=== PATIENT | male | born 1960 | race Caucasian/White ===

== ENCOUNTER 2018-07-24 06:51 | Inpatient (IN) | payer MEDICARE, BC ==
[~2018-07-24] VITALS: Ht 160 cm; Wt 57.0 kg
[2018-07-24] MEDS ORDERED: AMLO5TAB4 PO (08:42)
[2018-07-24] MEDS ORDERED: FURO80TA3 PO (08:44)
[2018-07-24] MEDS ORDERED: NIFE30TA23 PO (08:45)
[2018-07-24] MEDS ORDERED: LABE100T7 PO (08:45)
[2018-07-24] MEDS ORDERED: CALC667C PO (08:45)
--- NOTE | 2018-07-24 10:48 | ERD ---
ER Documentation Chief Complaint Chief Complaint Sent from Dialysis clinic for evaluation abnormal labs HPI This is a 58-year-old man on dialysis who was sent from his dialysis center due to having a low hemoglobin. The patient is not sure of the number but says he feels generalized weakness gradually getting worse over the past couple of weeks. No nausea vomiting denies any melena, he said he has had anemia in the past of uncertain etiology, likely renal, and has had to get blood transfusions. He says he feels the same way like he did before. He said he went to dialysis yesterday ROS All systems reviewed and are negative except as per history of present illness. Medications Home Meds Reported Medications Calcium Acetate* (Calcium Acetate*) 667 Mg Capsule, 2001 MG PO WITH MEALS, #90 CAP 07/24/18 Nifedipine* (Nifedipine ER*) 30 Mg Tablet.sa, 30 MG PO DAILY, TAB.SA 07/24/18 Labetalol Hcl* (Labetalol Hcl*) 100 Mg Tablet, 100 MG PO BID, TAB 07/24/18 Furosemide* (Furosemide*) 80 Mg Tablet, 80 MG PO BID, #60 TAB 07/24/18 Amlodipine Besylate* (Norvasc*) 5 Mg Tablet, 5 MG PO DAILY, TAB 07/24/18 Allergies Allergies: Coded Allergies: Penicillins (Verified Allergy, Unknown, 07/24/18) amoxicillin (Verified Allergy, Unknown, 07/24/18) PMhx/Soc History of Surgery: No Anesthesia Reaction: No Hx Neurological Disorder: No Hx Respiratory Disorders: No Hx Cardiac Disorders: Yes (HTN) Hx Psychiatric Problems: No Hx Miscellaneous Medical Probl: Yes (DM,ESRD) Hx Alcohol Use: No Hx Substance Use: No Hx Tobacco Use: No Smoking Status: Never smoker FmHx Family History: No coronary disease Physical Exam Vitals Vital Signs Date Temp Pulse Resp B/P (MAP) Pulse Ox O2 O2 Flow FiO2 Time Delivery Rate 07/24/18 Nasal 2 07:37 Cannula 07/24/18 97.6 90 20 200/92 100 06:56 (128) Physical Exam Const: Well-developed, well-nourished Head: Atraumatic, normocephalic Eyes: Normal Conjunctiva, PERRLA, EOMI, normal sclera, no nystagmus ENT: Normal External Ears, Nose and Mouth, moist mucus membranes. Neck: Full range of motion. No meningismus, no lymphadenopathy. Resp: Clear to auscultation bilaterally, no wheezing, rhonchi, rales Cardio: Regular rate and rhythm, no murmurs, S1 S2 present Abd: Soft, non tender x 4, non distended. Normal bowel sounds, no guarding or rebound, no pulsitile abdominal masses or bruits Skin: No petechiae or rashes, no ecchymosis , no maculopapular rash Back: No midline or flank tenderness Ext: No cyanosis, or edema, FROM x 4, normal inspection, neurovascularly intact x 4 Neur: Awake and alert, STR 5/5 x 4, sensation intact x 4, no focal findings, cerebellum intact Psych: Normal Mood and Affect Result Diagram: 07/24/18 0718 07/24/18 0718 Results 24 hrs Laboratory Tests Test 07/24/18 07:18 White Blood Count 13.5 10^3/ul Red Blood Count 2.68 10^6/ul Hemoglobin 7.4 g/dl Hematocrit 24.4 % Mean Corpuscular Volume 91.0 fl Mean Corpuscular Hemoglobin 27.6 pg Mean Corpuscular Hemoglobin Concent 30.3 g/dl Red Cell Distribution Width 23.9 % Platelet Count 621 10^3/UL Mean Platelet Volume 9.9 fl Immature Granulocytes % 0.700 % Neutrophils % 79.0 % Lymphocytes % 9.1 % Monocytes % 7.1 % Eosinophils % 3.6 % Basophils % 0.5 % Nucleated Red Blood Cells % 0.0 /100WBC Immature Granulocytes # 0.090 10^3/ul Neutrophils # 10.6 10^3/ul Lymphocytes # 1.2 10^3/ul Monocytes # 1.0 10^3/ul Eosinophils # 0.5 10^3/ul Basophils # 0.1 10^3/ul Nucleated Red Blood Cells # 0.0 10^3/ul Prothrombin Time 13.6 Sec Prothrombin Time Ratio 1.1 INR International Normalized Ratio 1.03 Activated Partial Thromboplast Time 38.9 Sec Sodium Level 137 mmol/L Potassium Level 5.0 mmol/L Chloride Level 100 mmol/L Carbon Dioxide Level 22 mmol/L Anion Gap 15 Blood Urea Nitrogen 54 mg/dl Creatinine 6.32 mg/dl Est Glomerular Filtrat Rate mL/min 9 mL/min Glucose Level 126 mg/dl Calcium Level 8.7 mg/dl Total Bilirubin 2.1 mg/dl Direct Bilirubin 1.50 mg/dl Indirect Bilirubin 0.6 mg/dl Aspartate Amino Transf (AST/SGOT) 62 IU/L Alanine Aminotransferase (ALT/SGPT) 24 IU/L Alkaline Phosphatase 1457 IU/L Total Protein 8.9 g/dl Albumin 3.6 g/dl Globulin 5.30 g/dl Albumin/Globulin Ratio 0.67 Procedures/MDM PROCEDURE: XR Chest. CLINICAL INDICATION: Hemorrhage TECHNIQUE: AP chest was obtained COMPARISON: None. FINDINGS: Right central venous catheter in place distal portion projected over the distal superior vena cava. Hypoventilatory chest. Mild increased density at both bases more so left base may all be due to atelectasis however basilar infiltrates especially on the left should be excluded. Remainder lungs are clear. No pulmonary vascular congestion or pneumothoraces. Blunted costophrenic angles slightly more conspicuous on the left and rule out tiny pleural effusions. IMPRESSION: 1. No evidence congestive heart failure. 2. Bibasilar increased density more so at the left base may all be due to atelectasis however pneumonia especially in the left lower lobe should be excluded. 3. Blunted costophrenic angles more prominent on the left and rule out tiny pleural effusions. RPTAT:AAJJ Physician Raul Date Time Electronically viewed and signed by Physician Raul on 07/24/2018 08:02 BM/ CC: KIKE SENA DO [id number] Patient is anemic with a hemoglobin of 7.4. I type and cross 2 units of packed red blood cells admit to the hospital for anemia workup/blood transfusion. Potassium is stable. Will admit to panel Departure Diagnosis: Primary Impression: Symptomatic anemia Condition: Stable KIKE SENA DO Jul 24, 2018 10:48
[2018-07-24] MEDS ORDERED: ONDANSETRON 4 MG INJ IV PRN ×2 (11:30→14:30)
[2018-07-24] MEDS ORDERED: ACETAMINOPHEN 325 MG TAB PO PRN ×2 (11:30→14:30)
--- NOTE | 2018-07-24 13:59 | HP ---
Date/Time of Note Date/Time of Note DATE: 07/24/18 TIME: 13:59 Assessment/Plan VTE Prophylaxis Pharmacological prophylaxis: NA/contraindicated Pharm contraindication: anticoag not tolerated Lines/Catheters IV Catheter Type (from [facility]): [facility] Assessment/Plan Hospital Course 58-year-old male with comorbidities including end-stage renal disease on hemodialysis Saturday/Saturday/Saturday, anemia, and hypertension, who came to the emergency room for further evaluation who was referred by his negative developer for underlying anemia. The patient was noticed to have underlying anemia and the patient will be admitted to inpatient setting for further treatment and evaluation. 1. Normocytic anemia. -Etiology unclear. Obtain hematology consult. -Obtain iron panel to evaluate for any underlying deficiency. -Obtain studies to evaluate for any underlying hemolysis. -Obtain gastroenterology evaluation. Start PPI. -Stool for OB. 2. End-stage renal disease on hemodialysis. -The patient's negative developer was informed about the patient's admission. -Next scheduled hemodialysis on 07/25/2018. -The patient's potassium level within normal limits. 3. Essential hypertension. -The patient's antihypertensives will be resumed. 4. Transaminitis with hyperbilirubinemia. -Etiology unclear. -Obtain gastroenterology consult. -Obtain hepatitis panel. Plan: The patient will be admitted to inpatient telemetry floor. The patient will be started on a renal diet. The patient will be started on DVT prophylaxis (SCDs) and gastrointestinal prophylaxis. The patient will remain a full code. Activities will be as tolerated. The rest of the patient's management will be based on the clinical course, inputs from consultants, and the results of diagnostic studies. Based on the patient's clinical presentation, he most probably requires at least 2 midnights' stay for further management and evaluation of his clinical presentation. The patient was seen in collaboration with Dr. Joseph. Result Diagram: 07/24/18 0718 07/24/18 0718 Results 24hrs Laboratory Tests Test 07/24/18 07:18 White Blood Count 13.5 H Red Blood Count 2.68 L Hemoglobin 7.4 L Hematocrit 24.4 L Mean Corpuscular Volume 91.0 Mean Corpuscular Hemoglobin 27.6 L Mean Corpuscular Hemoglobin Concent 30.3 L Red Cell Distribution Width 23.9 H Platelet Count 621 H Mean Platelet Volume 9.9 Immature Granulocytes % 0.700 H Neutrophils % 79.0 H Lymphocytes % 9.1 L Monocytes % 7.1 Eosinophils % 3.6 Basophils % 0.5 Nucleated Red Blood Cells % 0.0 Immature Granulocytes # 0.090 H Neutrophils # 10.6 H Lymphocytes # 1.2 Monocytes # 1.0 H Eosinophils # 0.5 Basophils # 0.1 Nucleated Red Blood Cells # 0.0 Prothrombin Time 13.6 Prothrombin Time Ratio 1.1 INR International Normalized Ratio 1.03 Activated Partial Thromboplast Time 38.9 H Sodium Level 137 Potassium Level 5.0 Chloride Level 100 Carbon Dioxide Level 22 Anion Gap 15 H Blood Urea Nitrogen 54 H Creatinine 6.32 H Est Glomerular Filtrat Rate mL/min 9 L Glucose Level 126 Calcium Level 8.7 Iron Level 48 Total Iron Binding Capacity 204 L Percent Iron Saturation 24 Total Bilirubin 2.1 H Direct Bilirubin 1.50 H Indirect Bilirubin 0.6 Aspartate Amino Transf (AST/SGOT) 62 H Alanine Aminotransferase (ALT/SGPT) 24 Alkaline Phosphatase 1457 H Total Protein 8.9 H Albumin 3.6 Globulin 5.30 H Albumin/Globulin Ratio 0.67 HPI/ROS Admit Date/Time Admit Date/Time Hx of Present Illness Reason for admission: Referred by hemodialysis clinic for further evaluation of anemia. Consultants 1. Sebastian Kerns MD, Gastroenterology. 2. Rosi Daigle MD, Nephrology. 3. Marilynn Nichols MD, Hematology. This is a 58-year-old male with past medical history of end-stage renal disease on hemodialysis and hypertension. The patient went to his hemodialysis clinic as scheduled on 07/23/2018 when he was found to have a hemoglobin level of 6.5. The patient was instructed to go to the emergency room after completing his hemodialysis. The patient did not to go to the emergency room until 07/24/2018. The patient denied any obvious bleeding. The patient denied any melena, hematochezia, or hematemesis. The patient denied any hematuria. The patient verbalized generalized fatigue. The patient denied any dyspnea on exertion. The patient verbalized prior history of blood transfusion in February 2018. The patient denied any fevers or chills. The patient denied any chest pain. In the emergency room, the patient was noticed to have a hemoglobin and hematocrit of 7.4 and 24.4 respectively. The patient's coagulation panel was normal within normal limits. The patient did not have any evidence of thrombocytopenia. The patient had underlying hyperbilirubinemia with transaminitis. The patient was started on blood transfusion in the emergency room. ROS Constitutional: fatigue Eyes: no complaints ENT: no complaints Respiratory: no complaints Cardiovascular: edema Gastrointestinal: no complaints Genitourinary: no complaints Musculoskeletal: no complaints Skin: no complaints Endocrine: no complaints Lymphatic: lymphadema Psychological: no complaints Immunologic: no complaints PMH/Family/Social Past Medical History 1. Hypertension. 2. ESRD on hemodialysis Saturday/Saturday/Saturday. 3. Anemia Medications Current Medications Ondansetron HCl (Zofran Inj) 4 mg ER BRIDGE PRN IV NAUSEA/VOMITING; Start 07/24/18 at 11:30; Stop 07/25/18 at 11:29 Acetaminophen (Tylenol Tab) 650 mg ER BRIDGE PRN PO .MILD PAIN 1-3 OR TEMP; Start 07/24/18 at 11:30; Stop 07/25/18 at 11:29 Coded Allergies: Penicillins (Verified Allergy, Unknown, 07/24/18) amoxicillin (Verified Allergy, Unknown, 07/24/18) Past Surgical History Past Surgical Hx: other (Dialysis access placement) Social History Lives at home with family. Alcohol Use: none Smoking Status: Never smoker Drug Use: none Exam/Review of Systems Vital Signs Vitals Vital Signs Date Temp Pulse Resp B/P (MAP) Pulse Ox O2 O2 Flow FiO2 Time Delivery Rate 07/24/18 Nasal 2 07:37 Cannula 07/24/18 97.6 90 20 200/92 100 06:56 (128) Exam Exam General: Adequately build 58 year-old male lying in bed in no apparent distress. HEENT: Normocephalic, atraumatic. Eyes: Icteric sclerae, conjunctivae clear. ENT: Nasal septum midline, oral mucosa moist. Neck supple, JVD noticed. Respiratory: Bilaterally clear breath sounds. No use of accessory muscles of respiration. No adventitious breath sounds. Cardiovascular: S1, S2 heard. Regular rate and rhythm. Abdomen: Soft, nontender, and nondistended. Bowel sounds positive in all 4 quadrants. Genitourinary: Deferred. Extremities: No cyanosis, no clubbing. B/L LE edema. Peripheral pulses palpable. Neurologic: Cranial nerves II through XII grossly intact. The patient is awake, alert, and oriented. Skin: Normal skin turgor. No skin rashes. Additional Comments CXR IMPRESSION: 1. No evidence congestive heart failure. 2. Bibasilar increased density more so at the left base may all be due to atelectasis however pneumonia especially in the left lower lobe should be excluded. 3. Blunted costophrenic angles more prominent on the left and rule out tiny pleural effusions. BERTHA LAUREANO NP Jul 24, 2018 13:59
[2018-07-24] MEDS ORDERED: NACL 0.9% 3 ML SYG IV SCH (14:30)
[2018-07-24] MEDS ORDERED: HYDROCODONE/APAP (5/325) TAB PO PRN (14:30)
--- NOTE | 2018-07-24 15:52 | CONS ---
Assessment/Plan Assessment/Plan Hospital Course (Demo Recall) Summary Assessment and Plan: Assessment: Elevated LFTs with direct hyperbilirubinemia (Elevated alkaline phosphatase 1457) Elevated lactate dehydrogenase 60lb weight loss over 6 months Normocytic anemia Thrombocytosis ESRD on HD HTN Chronic n/v Plan: MRCP- to assess biliary duct CT abd/pelvis- assess for malignancy CA 19-9 CEA Alk phos fractionation EGD/colon in near future Patient seen in collaboration with Dr. Cheng CC: ALLAN CHENG ; Consultation Date/Type/Reason Admit Date/Time Date of Consultation: Jul 24, 2018 Type of Consult GI Reason for Consultation Normocytic anemia Abnormal liver enzymes Direct hyperbilirubinemia Date/Time of Note DATE: 07/24/18 TIME: 15:45 Hx of Present Illness This is a 58-year-old male with PMH of ESRD on HD M,W,F, anemia, and hypertension. Presented to the ED per his dementia program director for his underlying anemia. Labs were obtained patient's hemoglobin was noted to be 7.4 with hematocrit of 24.4, MCV of 91.0, platelet count 621, WBC 13.5, INR of 0.03 additionally LFTs are noted to be abnormal including direct hyperbilirubinemia, elevated AST 62, normal ALT of 24, severely elevated alkaline phosphatase 1457, and an elevated lactate dehydrogenase. Ultrasound was obtained showing deana lithiasis mild hepatomegaly trace amount of ascites and a small right pleural effusion as well as medical renal disease.. A chest x-ray shows no evidence of congestive heart failure bibasilar increased density more so left base due to atelectasis however pneumonia cannot be excluded, blunted costophrenic angles more prominent on the left and rule out tiny pleural effusion. At time evaluation patient is resting in bed no apparent distress with questioning patient notes he has had progressive nausea and vomiting since February he also notes a 60 pound weight loss in the past 6 months. He denies overt signs of GI bleed including melena, hematochezia, or hematemesis. He states he is never had an EGD or colonoscopy. He also denies any recent orthopedic surgery to cause elevation in alkaline phosphatase he also denies osteomyelitis. Discussed plan to obtain additional blood workup and plan for MRCP as well as CT abdomen pelvis to assess for malignancy and assess biliary tree given direct hyperbilirubinemia and severely elevated alkaline phosphatase. Patient verbalized understanding a nd is agreeable to plan. Review of Systems: A 12 system, review was conducted and is negative except as noted in the HPI or here. Past Medical History Home Meds Reported Medications Calcium Acetate* (Calcium Acetate*) 667 Mg Capsule, 2001 MG PO WITH MEALS, #90 CAP 07/24/18 Nifedipine* (Nifedipine ER*) 30 Mg Tablet.sa, 30 MG PO DAILY, TAB.SA 07/24/18 Labetalol Hcl* (Labetalol Hcl*) 100 Mg Tablet, 100 MG PO BID, TAB 07/24/18 Furosemide* (Furosemide*) 80 Mg Tablet, 80 MG PO BID, #60 TAB 07/24/18 Amlodipine Besylate* (Norvasc*) 5 Mg Tablet, 5 MG PO DAILY, TAB 07/24/18 Medications Current Medications Ondansetron HCl (Zofran Inj) 4 mg ER BRIDGE PRN IV NAUSEA/VOMITING; Start 07/24/18 at 11:30; Stop 07/25/18 at 11:29 Acetaminophen (Tylenol Tab) 650 mg ER BRIDGE PRN PO .MILD PAIN 1-3 OR TEMP; Start 07/24/18 at 11:30; Stop 07/25/18 at 11:29 IV Flush (NS 3 ml) 3 ml PER PROTOCOL IV ; Start 07/24/18 at 14:30 Ondansetron HCl (Zofran Inj) 4 mg Q6H PRN IV NAUSEA/VOMITING; Start 07/24/18 at 14:30 Acetaminophen (Tylenol Tab) 650 mg Q6H PRN PO .PAIN 1-3 OR TEMP; Start 07/24/18 at 14:30 Acetaminophen/ Hydrocodone Bitart ([place] (5/325)) 1 tab Q6H PRN PO .MOD PAIN 4- 6; Start 07/24/18 at 14:30 Amlodipine Besylate (Norvasc) 5 mg DAILY PO ; Start 07/25/18 at 09:00; Status UNV Calcium Acetate (Phoslo) 2,001 mg WITH MEALS PO ; Start 07/24/18 at 18:00 Labetalol HCl (Normodyne) 100 mg BID PO ; Start 07/24/18 at 21:00 Nifedipine (Procardia Xl) 30 mg DAILY PO ; Start 07/25/18 at 09:00; Status UNV Pantoprazole (Protonix Tab) 40 mg DAILY@06 PO ; Start 07/25/18 at 06:00; Status UNV Allergies: Coded Allergies: Penicillins (Verified Allergy, Unknown, 07/24/18) amoxicillin (Verified Allergy, Unknown, 07/24/18) Past Surgical History Past Surgical Hx: other (Dialysis access placement) Social History Alcohol Use: none Smoking Status: Never smoker Drug Use: none Exam/Review of Systems Exam Vitals Vital Signs Date Temp Pulse Resp B/P (MAP) Pulse Ox O2 O2 Flow FiO2 Time Delivery Rate 07/24/18 98.2 82 18 154/75 98 Nasal 2.0 15:35 (101) Cannula Exam PHYSICAL EXAMINATION: GENERAL: Ill appearing, alert & oriented x 3, in no acute distress SKIN: No lesions EYES: Pupils equal reactive to light, no discharge. EARS/NOSE AND THROAT: Ears normal, nose normal, oropharynx normal NECK: Supple, no masses CHEST: Inspection within normal limits. CARDIOVASCULAR: Heart: Regular rate and rhythm RESPIRATORY: Lungs clear to auscultation GASTROINTESTINAL AND LIVER: Abdomen: Soft, non tenderness, non-distended, no hernias, no masses, no organomegaly, no ascites, no guarding, no rebound tenderness, normoactive bowel sounds. Rectal: Deferred. EXTREMITIES: No cyanosis, clubbing or edema. Results Result Diagram: 07/24/18 0718 07/24/18 0718 Results 24hrs Laboratory Tests Test 07/24/18 07:18 White Blood Count 13.5 H Red Blood Count 2.68 L Hemoglobin 7.4 L Hematocrit 24.4 L Mean Corpuscular Volume 91.0 Mean Corpuscular Hemoglobin 27.6 L Mean Corpuscular Hemoglobin Concent 30.3 L Red Cell Distribution Width 23.9 H Platelet Count 621 H Mean Platelet Volume 9.9 Immature Granulocytes % 0.700 H Neutrophils % 79.0 H Lymphocytes % 9.1 L Monocytes % 7.1 Eosinophils % 3.6 Basophils % 0.5 Nucleated Red Blood Cells % 0.0 Immature Granulocytes # 0.090 H Neutrophils # 10.6 H Lymphocytes # 1.2 Monocytes # 1.0 H Eosinophils # 0.5 Basophils # 0.1 Nucleated Red Blood Cells # 0.0 Absolute Reticulocyte Count 0.140 H Percent Reticulocyte Count 5.3 H Prothrombin Time 13.6 Prothrombin Time Ratio 1.1 INR International Normalized Ratio 1.03 Activated Partial Thromboplast Time 38.9 H Sodium Level 137 Potassium Level 5.0 Chloride Level 100 Carbon Dioxide Level 22 Anion Gap 15 H Blood Urea Nitrogen 54 H Creatinine 6.32 H Est Glomerular Filtrat Rate mL/min 9 L Glucose Level 126 Calcium Level 8.7 Iron Level 48 Total Iron Binding Capacity 204 L Percent Iron Saturation 24 Ferritin 1760.0 H Total Bilirubin 2.1 H Direct Bilirubin 1.50 H Indirect Bilirubin 0.6 Aspartate Amino Transf (AST/SGOT) 62 H Alanine Aminotransferase (ALT/SGPT) 24 Alkaline Phosphatase 1457 H Lactate Dehydrogenase 851 H Total Protein 8.9 H Albumin 3.6 Globulin 5.30 H Albumin/Globulin Ratio 0.67 Hepatitis B Surface Antigen NEGATIVE Hepatitis B Core Total Antibody NEGATIVE Hepatitis C Antibody NEGATIVE Medications Medication Current Medications Ondansetron HCl (Zofran Inj) 4 mg ER BRIDGE PRN IV NAUSEA/VOMITING; Start 07/24/18 at 11:30; Stop 07/25/18 at 11:29 Acetaminophen (Tylenol Tab) 650 mg ER BRIDGE PRN PO .MILD PAIN 1-3 OR TEMP; Start 07/24/18 at 11:30; Stop 07/25/18 at 11:29 IV Flush (NS 3 ml) 3 ml PER PROTOCOL IV ; Start 07/24/18 at 14:30 Ondansetron HCl (Zofran Inj) 4 mg Q6H PRN IV NAUSEA/VOMITING; Start 07/24/18 at 14:30 Acetaminophen (Tylenol Tab) 650 mg Q6H PRN PO .PAIN 1-3 OR TEMP; Start 07/24/18 at 14:30 Acetaminophen/ Hydrocodone Bitart ([place] (5/325)) 1 tab Q6H PRN PO .MOD PAIN 4- 6; Start 07/24/18 at 14:30 Amlodipine Besylate (Norvasc) 5 mg DAILY PO ; Start 07/25/18 at 09:00; Status UNV Calcium Acetate (Phoslo) 2,001 mg WITH MEALS PO ; Start 07/24/18 at 18:00 Labetalol HCl (Normodyne) 100 mg BID PO ; Start 07/24/18 at 21:00 Nifedipine (Procardia Xl) 30 mg DAILY PO ; Start 07/25/18 at 09:00; Status UNV Pantoprazole (Protonix Tab) 40 mg DAILY@06 PO ; Start 07/25/18 at 06:00; Status UNANDREW LEONARD Jul 24, 2018 15:52
[2018-07-24] MEDS: hydrALAzine 20 MG INJ IV PRN (16:45)
[2018-07-24 16:50] VITALS: BP 184/99; PULSE 78; RESP 18
[2018-07-24 16:58] VITALS: Ht 160 cm; Wt 57.0 kg
[2018-07-24 17:08] VITALS: BP 161/85; PULSE 78; RESP 18
[2018-07-24] MEDS: morphine 2 MG INJ IV PRN (17:34)
[2018-07-24 17:39] VITALS: BP 158/87; PULSE 77; RESP 19
[2018-07-24] MEDS: CALCIUM ACETATE 667 MG CAP PO SCH (18:16)
--- NOTE | 2018-07-24 19:23 | CONS ---
Assessment/Plan Assessment/Plan Assessment/Plan (Daily) - ESRD on hemodialysis @ [facility] - Persistent Anemia - Hypertension - Hyperphosphatemia - PVD PLAN: Persistent Anemia despite max dose of erythropoietin & IRON as out patient Anemia work up in progress Will plan for HD in AM May need transfusion depending on the H/H levels in AM BP control High Protein diet Follow up with [facility] [employer] Consultation Date/Type/Reason Admit Date/Time Date of Consultation: Jul 24, 2018 Type of Consult - Nephrology Reason for Consultation - ESRD on dialysis Date/Time of Note DATE: 07/24/18 TIME: : Constitutional: no complaints Eyes: no complaints ENT: no complaints Respiratory: no complaints Gastrointestinal: no complaints Past Medical History Medical History: coronary artery disease, hypertension, renal disease Home Meds Reported Medications Calcium Acetate* (Calcium Acetate*) 667 Mg Capsule, 2001 MG PO WITH MEALS, #90 CAP 07/24/18 Nifedipine* (Nifedipine ER*) 30 Mg Tablet.sa, 30 MG PO DAILY, TAB.SA 07/24/18 Labetalol Hcl* (Labetalol Hcl*) 100 Mg Tablet, 100 MG PO BID, TAB 07/24/18 Furosemide* (Furosemide*) 80 Mg Tablet, 80 MG PO BID, #60 TAB 07/24/18 Amlodipine Besylate* (Norvasc*) 5 Mg Tablet, 5 MG PO DAILY, TAB 07/24/18 Medications Current Medications Ondansetron HCl (Zofran Inj) 4 mg ER BRIDGE PRN IV NAUSEA/VOMITING; Start 07/24/18 at 11:30; Stop 07/25/18 at 11:29 IV Flush (NS 3 ml) 3 ml PER PROTOCOL IV ; Start 07/24/18 at 14:30 Ondansetron HCl (Zofran Inj) 4 mg Q6H PRN IV NAUSEA/VOMITING; Start 07/24/18 at 14:30 Acetaminophen (Tylenol Tab) 650 mg Q6H PRN PO .PAIN 1-3 OR TEMP; Start 07/24/18 at 14:30 Acetaminophen/ Hydrocodone Bitart ([place] (5/325)) 1 tab Q6H PRN PO .MOD PAIN 4- 6; Start 07/24/18 at 14:30 Amlodipine Besylate (Norvasc) 5 mg DAILY PO ; Start 07/25/18 at 09:00 Calcium Acetate (Phoslo) 2,001 mg WITH MEALS PO Last administered on 07/24/18at 18:16; Admin Dose 2,001 MG; Start 07/24/18 at 17:55 Labetalol HCl (Normodyne) 100 mg BID PO ; Start 07/24/18 at 21:00 Nifedipine (Procardia Xl) 30 mg DAILY PO ; Start 07/25/18 at 09:00 Pantoprazole (Protonix Tab) 40 mg DAILY@06 PO ; Start 07/25/18 at 06:00 Hydralazine HCl (Apresoline) 10 mg Q6H PRN IV SBP>160 Last administered on 07/24/18at 16:45; Admin Dose 10 MG; Start 07/24/18 at 16:00 Morphine Sulfate (morphine) 2 mg Q4H PRN IV SEVERE PAIN LEVEL 7-10 Last administered on 07/24/18at 17:34; Admin Dose 2 MG; Start 07/24/18 at 17:30 Allergies: Coded Allergies: Penicillins (Verified Allergy, Unknown, 07/24/18) amoxicillin (Verified Allergy, Unknown, 07/24/18) Past Surgical History Past Surgical Hx: other (Dialysis access placement) Family History Significant Family History: no pertinent family hx Social History Alcohol Use: none Smoking Status: Never smoker Drug Use: none Exam/Review of Systems Exam Vitals Vital Signs Date Temp Pulse Resp B/P (MAP) Pulse Ox O2 O2 Flow FiO2 Time Delivery Rate 07/24/18 77 19 158/87 17:39 (110) 07/24/18 98.0 100 Room Air 16:50 07/24/18 2.0 15:35 Constitutional: alert, oriented Psych: no complaints Respiratory: crackles/rales Cardiovascular: regular rate and rhythm, systolic murmur Gastrointestinal: soft Results Result Diagram: 07/24/18 0718 07/24/18 0718 Results 24hrs Laboratory Tests Test 07/24/18 07:18 07/24/18 15:12 White Blood Count 13.5 H Red Blood Count 2.68 L Hemoglobin 7.4 L Hematocrit 24.4 L Mean Corpuscular Volume 91.0 Mean Corpuscular Hemoglobin 27.6 L Mean Corpuscular Hemoglobin Concent 30.3 L Red Cell Distribution Width 23.9 H Platelet Count 621 H Mean Platelet Volume 9.9 Immature Granulocytes % 0.700 H Neutrophils % 79.0 H Lymphocytes % 9.1 L Monocytes % 7.1 Eosinophils % 3.6 Basophils % 0.5 Nucleated Red Blood Cells % 0.0 Immature Granulocytes # 0.090 H Neutrophils # 10.6 H Lymphocytes # 1.2 Monocytes # 1.0 H Eosinophils # 0.5 Basophils # 0.1 Nucleated Red Blood Cells # 0.0 Absolute Reticulocyte Count 0.140 H Percent Reticulocyte Count 5.3 H Prothrombin Time 13.6 Prothrombin Time Ratio 1.1 INR International Normalized Ratio 1.03 Activated Partial Thromboplast Time 38.9 H Sodium Level 137 Potassium Level 5.0 Chloride Level 100 Carbon Dioxide Level 22 Anion Gap 15 H Blood Urea Nitrogen 54 H Creatinine 6.32 H Est Glomerular Filtrat Rate mL/min 9 L Glucose Level 126 Hemoglobin A1c Calcium Level 8.7 Iron Level 48 Total Iron Binding Capacity 204 L Percent Iron Saturation 24 Ferritin 1760.0 H Total Bilirubin 2.1 H Direct Bilirubin 1.50 H Indirect Bilirubin 0.6 Aspartate Amino Transf (AST/SGOT) 62 H Alanine Aminotransferase (ALT/SGPT) 24 Alkaline Phosphatase 1457 H Lactate Dehydrogenase 851 H B-Type Natriuretic Peptide 741754 H Total Protein 8.9 H Albumin 3.6 Globulin 5.30 H Albumin/Globulin Ratio 0.67 Alpha Fetoprotein 1.08 Vitamin B12 Level > 1000 H Folate 11.0 Thyroid Stimulating Hormone (TSH) 4.750 H Hepatitis B Surface Antigen NEGATIVE Hepatitis B Core Total Antibody NEGATIVE Hepatitis C Antibody NEGATIVE Carcinoembryonic Antigen 5.4 H Medications Medication Current Medications Ondansetron HCl (Zofran Inj) 4 mg ER BRIDGE PRN IV NAUSEA/VOMITING; Start 07/24/18 at 11:30; Stop 07/25/18 at 11:29 IV Flush (NS 3 ml) 3 ml PER PROTOCOL IV ; Start 07/24/18 at 14:30 Ondansetron HCl (Zofran Inj) 4 mg Q6H PRN IV NAUSEA/VOMITING; Start 07/24/18 at 14:30 Acetaminophen (Tylenol Tab) 650 mg Q6H PRN PO .PAIN 1-3 OR TEMP; Start 07/24/18 at 14:30 Acetaminophen/ Hydrocodone Bitart ([place] (5/325)) 1 tab Q6H PRN PO .MOD PAIN 4- 6; Start 07/24/18 at 14:30 Amlodipine Besylate (Norvasc) 5 mg DAILY PO ; Start 07/25/18 at 09:00 Calcium Acetate (Phoslo) 2,001 mg WITH MEALS PO Last administered on 07/24/18at 18:16; Admin Dose 2,001 MG; Start 07/24/18 at 17:55 Labetalol HCl (Normodyne) 100 mg BID PO ; Start 07/24/18 at 21:00 Nifedipine (Procardia Xl) 30 mg DAILY PO ; Start 07/25/18 at 09:00 Pantoprazole (Protonix Tab) 40 mg DAILY@06 PO ; Start 07/25/18 at 06:00 Hydralazine HCl (Apresoline) 10 mg Q6H PRN IV SBP>160 Last administered on 07/24/18at 16:45; Admin Dose 10 MG; Start 07/24/18 at 16:00 Morphine Sulfate (morphine) 2 mg Q4H PRN IV SEVERE PAIN LEVEL 7-10 Last administered on 07/24/18at 17:34; Admin Dose 2 MG; Start 07/24/18 at 17:30 ZAHEER SHARIF MD Jul 24, 2018 19:23
[2018-07-24 19:49] VITALS: BP 163/85; PULSE 73; RESP 18
[2018-07-24] MEDS ORDERED: IODIXANOL LOCM 100 ML BTL ONE (20:34)
[2018-07-24] MEDS ORDERED: SOD CHLORIDE 0.9% 100 ML ONE (20:34)
[2018-07-24] MEDS: LABETALOL 100 MG TAB PO SCH (22:02)
[2018-07-25] VITALS (33 sets, daily range): BP systolic 122–190; BP diastolic 63–100; PULSE 68–102; RESP 11–76
[2018-07-25] MEDS: PANTOPRAZOLE (EC) 40 MG TAB PO SCH (06:00)
--- NOTE | 2018-07-25 07:06 | CONS ---
Assessment/Plan Assessment/Plan Assessment/Plan (Daily) - ESRD on hemodialysis @ [facility] - Persistent Anemia - Hypertension - Hyperphosphatemia - PVD PLAN: Persistent Anemia despite max dose of erythropoietin & IRON as out patient Anemia work up in progress Will plan for HD in AM May need transfusion depending on the H/H levels in AM BP control High Protein diet Follow up with [facility] GI work up noted for today Bedside dialysis Labs Pending for today On EPO + IRON as out patient 20K procrit today SQ x 1 dose today Consultation Date/Type/Reason Admit Date/Time Jul 24, 2018 at 11:04 Initial Consult Date 07/24/18 Type of Consult - Nephrology Date/Time of Note DATE: 07/25/18 TIME: 07:04 24 HR Interval Summary Constitutional: no complaints, improved Exam/Review of Systems Exam Vitals Vital Signs Date Temp Pulse Resp B/P (MAP) Pulse Ox O2 O2 Flow FiO2 Time Delivery Rate 07/25/18 98.5 68 16 144/80 100 Nasal 04:26 (101) Cannula 07/24/18 2.0 15:35 Intake and Output 07/24/18 07/24/18 07/25/18 1515:00 23:00 07:00 IntakeIntake Total 600 ml BalanceBalance 600 ml Constitutional: alert, oriented Head: normocephalic Neck: supple Respiratory: crackles/rales Cardiovascular: systolic murmur Gastrointestinal: soft Results Result Diagram: 07/24/1818 07/24/1818 Results 24hrs Laboratory Tests Test 07/24/18 07:18 07/24/18 15:12 07/25/18 05:53 White Blood Count 13.5 H Pending Red Blood Count 2.68 L Pending Hemoglobin 7.4 L Pending Hematocrit 24.4 L Pending Mean Corpuscular Volume 91.0 Pending Mean Corpuscular Hemoglobin 27.6 L Pending Mean Corpuscular Hemoglobin Concent 30.3 L Pending Red Cell Distribution Width 23.9 H Pending Platelet Count 621 H Pending Mean Platelet Volume 9.9 Pending Immature Granulocytes % 0.700 H Neutrophils % 79.0 H Lymphocytes % 9.1 L Monocytes % 7.1 Eosinophils % 3.6 Basophils % 0.5 Nucleated Red Blood Cells % 0.0 Immature Granulocytes # 0.090 H Neutrophils # 10.6 H Lymphocytes # 1.2 Monocytes # 1.0 H Eosinophils # 0.5 Basophils # 0.1 Nucleated Red Blood Cells # 0.0 Absolute Reticulocyte Count 0.140 H Percent Reticulocyte Count 5.3 H Prothrombin Time 13.6 Prothrombin Time Ratio 1.1 INR International Normalized Ratio 1.03 Activated Partial Thromboplast Time 38.9 H Sodium Level 137 Potassium Level 5.0 Chloride Level 100 Carbon Dioxide Level 22 Anion Gap 15 H Blood Urea Nitrogen 54 H Creatinine 6.32 H Est Glomerular Filtrat Rate mL/min 9 L Glucose Level 126 Hemoglobin A1c Calcium Level 8.7 Iron Level 48 Total Iron Binding Capacity 204 L Percent Iron Saturation 24 Ferritin 1760.0 H Total Bilirubin 2.1 H Direct Bilirubin 1.50 H Indirect Bilirubin 0.6 Aspartate Amino Transf (AST/SGOT) 62 H Alanine Aminotransferase (ALT/SGPT) 24 Alkaline Phosphatase 1457 H Lactate Dehydrogenase 851 H B-Type Natriuretic Peptide 550234 H Total Protein 8.9 H Albumin 3.6 Globulin 5.30 H Albumin/Globulin Ratio 0.67 Alpha Fetoprotein 1.08 Vitamin B12 Level > 1000 H Folate 11.0 Thyroid Stimulating Hormone (TSH) 4.750 H Hepatitis B Surface Antigen NEGATIVE Hepatitis B Core Total Antibody NEGATIVE Hepatitis C Antibody NEGATIVE Carcinoembryonic Antigen 5.4 H Medications Medication Current Medications Ondansetron HCl (Zofran Inj) 4 mg ER BRIDGE PRN IV NAUSEA/VOMITING; Start 07/24/18 at 11:30; Stop 07/25/18 at 11:29 IV Flush (NS 3 ml) 3 ml PER PROTOCOL IV ; Start 07/24/18 at 14:30 Ondansetron HCl (Zofran Inj) 4 mg Q6H PRN IV NAUSEA/VOMITING; Start 07/24/18 at 14:30 Acetaminophen (Tylenol Tab) 650 mg Q6H PRN PO .PAIN 1-3 OR TEMP; Start 07/24/18 at 14:30 Acetaminophen/ Hydrocodone Bitart ([place] (5/325)) 1 tab Q6H PRN PO .MOD PAIN 4- 6; Start 07/24/18 at 14:30 Amlodipine Besylate (Norvasc) 5 mg DAILY PO ; Start 07/25/18 at 09:00 Calcium Acetate (Phoslo) 2,001 mg WITH MEALS PO Last administered on 07/24/18at 18:16; Admin Dose 2,001 MG; Start 07/24/18 at 17:55 Labetalol HCl (Normodyne) 100 mg BID PO Last administered on 07/24/18at 22:02; Admin Dose 100 MG; Start 07/24/18 at 21:00 Nifedipine (Procardia Xl) 30 mg DAILY PO ; Start 07/25/18 at 09:00 Pantoprazole (Protonix Tab) 40 mg DAILY@06 PO Last administered on 07/25/18at 06:00; Admin Dose 40 MG; Start 07/25/18 at 06:00 Hydralazine HCl (Apresoline) 10 mg Q6H PRN IV SBP>160 Last administered on 07/24/18at 16:45; Admin Dose 10 MG; Start 07/24/18 at 16:00 Morphine Sulfate (morphine) 2 mg Q4H PRN IV SEVERE PAIN LEVEL 7-10 Last administered on 07/24/18at 17:34; Admin Dose 2 MG; Start 07/24/18 at 17:30 ZAHEER SHARIF MD Jul 25, 2018 07:06
[2018-07-25] MEDS: CALCIUM ACETATE 667 MG CAP PO SCH ×3 (07:55→17:55)
[2018-07-25] MEDS: NIFEdipine (XL) 30 MG TAB PO SCH (08:35)
[2018-07-25] MEDS: AMLODIPINE 5 MG TAB PO SCH (08:37)
[2018-07-25] MEDS: LABETALOL 100 MG TAB PO SCH (08:38)
[2018-07-25] MEDS ORDERED: EPOETIN 10000 UNITS/1 ML INJ (ESRD) SC SCH (09:00)
--- NOTE | 2018-07-25 10:42 | PN ---
Date/Time of Note Date/Time of Note DATE: 07/25/18 TIME: 10:37 Assessment/Plan VTE Prophylaxis Risk score (from Ns)>0 risk: 3 SCD applied (from Ns): No SCD contraindicated: other Pharmacological prophylaxis: NA/contraindicated Pharm contraindication: anticoag not tolerated Lines/Catheters [facility] PERMACATH Assessment/Plan Hospital Course SUBJECTIVE: Complains of pain in the left thigh. OBJECTIVE: Physical Exam General: Adequately build 58 year-old male lying in bed in no apparent distress. HEENT: Normocephalic, atraumatic. Eyes: Icteric sclerae, conjunctivae clear. ENT: Nasal septum midline, oral mucosa moist. Neck supple, JVD noticed. Respiratory: Bilaterally clear breath sounds. No use of accessory muscles of respiration. No adventitious breath sounds. Cardiovascular: S1, S2 heard. Regular rate and rhythm. Abdomen: Soft, nontender, and nondistended. Bowel sounds positive in all 4 quadrants. Genitourinary: Deferred. Extremities: No cyanosis, no clubbing. B/L LE pedal pitting edema. Left thigh non pitting edema. Peripheral pulses palpable. Neurologic: Cranial nerves II through XII grossly intact. The patient is awake, alert, and oriented. Skin: Normal skin turgor. No skin rashes. Labs & Vitals per chart ASSESSMENT & PLAN 58-year-old male with comorbidities including end-stage renal disease on hemodialysis Saturday/Saturday/Saturday, anemia, and hypertension, who came to the emergency room for further evaluation who was referred by his news photographer for underlying anemia. The patient was noticed to have underlying anemia and the patient was admitted to inpatient setting for further treatment and evaluation. 1. Normocytic anemia. -Etiology unclear. -Pending bone marrow biopsy. -Hematology following. -Gastroenterology following. -Pending stool for OB. 2. End-stage renal disease on hemodialysis. -Being followed by nephrology. 3. Essential hypertension. -Continue antihypertensives. 4. Transaminitis with hyperbilirubinemia. -Etiology unclear. -Hepatitis panel negative. -CT scan showing hepatomegaly with marked heterogeneous enhancement suggesting congestive heart failure or other hepatic congestion. -Liver US showing cholelithiasis. -Pending MRCP to evaluate for any underlying biliary duct dilatation. 5. Diffuse enlargement and hypodense change of the left quadriceps muscles consistent with fluid collection. -Orthopedic Surgery has been consulted. 6. Bilateral pulmonary nodules with bilateral pleural effusions. -Pulmonary consult obtained. 7. Dyslipidemia. -Total cholesterol of 310 and LDL of 262. -Unable to start the patient on statins because of underlying hyperbilirubinemia and elevated alkaline phosphatase. -Low-cholesterol diet will be advised. 8. Fluids, electrolytes, and nutrition. -Renal, low-cholesterol diet. 9. DVT prophylaxis. -Bilateral SCDs. 10. Plan. -Continue HD as per nephrology. -Transfuse blood products as needed. -Await further recommendations from hematology/oncology and gastroenterology. -Obtain orthopedic surgery and pulmonology consult. The plan of care was explained to the patient's family, who was at the bedside. The patient was seen in collaboration with Dr. Joseph. Result Diagram: 07/25/18 0553 07/25/18 0552 Results 24hrs Laboratory Tests Test 07/24/18 14:22 07/24/18 15:12 07/24/18 15:13 07/25/18 05:52 Hepatitis A IgM NON-REACTIVE Antibody Carcinoembryonic 5.4 H Antigen Erythropoietin Pending Total Protein (PEP) 7.0 Albumin (PEP) Pending [id number] Pending Yoofc-[id number] Pending Beta Globulins Pending Gamma Globulins Pending Protein Pending Electrophoresis Int erpret Prothrombin Time 14.6 Prothrombin Time 1.1 Ratio INR International 1.13 Normalized Ratio Activated 36.6 H Partial Thromboplas t Time Sodium Level 138 Potassium Level 5.6 H Chloride Level 102 Carbon Dioxide 19 L Level Anion Gap 17 H Blood Urea Nitrogen 65 H Creatinine 7.33 H Est Glomerular 8 L Filtrat Rate mL/min Glucose Level 83 # Calcium Level 8.3 L Total Bilirubin 2.5 H Direct Bilirubin 2.00 #H Indirect Bilirubin 0.5 Aspartate Amino 45 Transf (AST/SGOT) Alanine 22 Aminotransferase (A LT/SGPT) Alkaline 930 H Phosphatase Total Protein 7.7 # Albumin 3.1 L Globulin 4.60 H Albumin/Globulin 0.67 Ratio Test 07/25/18 05:53 White Blood Count 13.8 H Red Blood Count 3.03 L Hemoglobin 8.5 L Hematocrit 27.1 L Mean Corpuscular 89.4 Volume Mean Corpuscular 28.1 L Hemoglobin Mean Corpuscular 31.4 L Hemoglobin Concent Red Cell 20.7 H Distribution Width Platelet Count 510 H Mean Platelet 9.7 Volume Immature 0.600 H Granulocytes % Neutrophils % 83.0 H Lymphocytes % 6.8 L Monocytes % 6.3 Eosinophils % 2.8 Basophils % 0.5 Nucleated Red Blood 0.0 Cells % Immature 0.080 H Granulocytes # Neutrophils # 11.4 H Lymphocytes # 0.9 Monocytes # 0.9 Eosinophils # 0.4 Basophils # 0.1 Nucleated Red Blood 0.0 Cells # Phosphorus Level 10.1 H Magnesium Level 2.4 Triglycerides Level 121 Cholesterol Level 310 H LDL Cholesterol, 260 Calculated HDL Cholesterol 26 L Cholesterol/HDL 11.9 Ratio CA 19-9 Antigen < 1.4 Thyroid Stimulating 3.730 Hormone (TSH) Free Thyroxine 1.95 H Exam/Review of Systems Exam Vitals Vital Signs Date Temp Pulse Resp B/P (MAP) Pulse Ox O2 O2 Flow FiO2 Time Delivery Rate 07/25/18 77 18 170/88 100 Nasal 2.0 10:00 (115) Cannula 07/25/18 98.0 07:38 Intake and Output 07/24/18 07/24/18 07/25/18 1515:00 23:00 07:00 IntakeIntake Total 600 ml BalanceBalance 600 ml Results Results 24hrs Laboratory Tests Test 07/24/18 14:22 07/24/18 15:12 07/24/18 15:13 07/25/18 05:52 Hepatitis A IgM NON-REACTIVE Antibody Carcinoembryonic 5.4 H Antigen Erythropoietin Pending Total Protein (PEP) 7.0 Albumin (PEP) Pending [id number] Pending Vplrz-1-Wstomrheq Pending Beta Globulins Pending Gamma Globulins Pending Protein Pending Electrophoresis Int erpret Prothrombin Time 14.6 Prothrombin Time 1.1 Ratio INR International 1.13 Normalized Ratio Activated 36.6 H Partial Thromboplas t Time Sodium Level 138 Potassium Level 5.6 H Chloride Level 102 Carbon Dioxide 19 L Level Anion Gap 17 H Blood Urea Nitrogen 65 H Creatinine 7.33 H Est Glomerular 8 L Filtrat Rate mL/min Glucose Level 83 # Calcium Level 8.3 L Total Bilirubin 2.5 H Direct Bilirubin 2.00 #H Indirect Bilirubin 0.5 Aspartate Amino 45 Transf (AST/SGOT) Alanine 22 Aminotransferase (A LT/SGPT) Alkaline 930 H Phosphatase Total Protein 7.7 # Albumin 3.1 L Globulin 4.60 H Albumin/Globulin 0.67 Ratio Test 07/25/18 05:53 White Blood Count 13.8 H Red Blood Count 3.03 L Hemoglobin 8.5 L Hematocrit 27.1 L Mean Corpuscular 89.4 Volume Mean Corpuscular 28.1 L Hemoglobin Mean Corpuscular 31.4 L Hemoglobin Concent Red Cell 20.7 H Distribution Width Platelet Count 510 H Mean Platelet 9.7 Volume Immature 0.600 H Granulocytes % Neutrophils % 83.0 H Lymphocytes % 6.8 L Monocytes % 6.3 Eosinophils % 2.8 Basophils % 0.5 Nucleated Red Blood 0.0 Cells % Immature 0.080 H Granulocytes # Neutrophils # 11.4 H Lymphocytes # 0.9 Monocytes # 0.9 Eosinophils # 0.4 Basophils # 0.1 Nucleated Red Blood 0.0 Cells # Phosphorus Level 10.1 H Magnesium Level 2.4 Triglycerides Level 121 Cholesterol Level 310 H LDL Cholesterol, 260 Calculated HDL Cholesterol 26 L Cholesterol/HDL 11.9 Ratio CA 19-9 Antigen < 1.4 Thyroid Stimulating 3.730 Hormone (TSH) Free Thyroxine 1.95 H Medications Medication Current Medications Ondansetron HCl (Zofran Inj) 4 mg ER BRIDGE PRN IV NAUSEA/VOMITING; Start 07/24/18 at 11:30; Stop 07/25/18 at 11:29 IV Flush (NS 3 ml) 3 ml PER PROTOCOL IV ; Start 07/24/18 at 14:30 Ondansetron HCl (Zofran Inj) 4 mg Q6H PRN IV NAUSEA/VOMITING; Start 07/24/18 at 14:30 Acetaminophen (Tylenol Tab) 650 mg Q6H PRN PO .PAIN 1-3 OR TEMP; Start 07/24/18 at 14:30 Acetaminophen/ Hydrocodone Bitart ([place] (5/325)) 1 tab Q6H PRN PO .MOD PAIN 4- 6; Start 07/24/18 at 14:30 Amlodipine Besylate (Norvasc) 5 mg DAILY PO ; Start 07/25/18 at 09:00 Calcium Acetate (Phoslo) 2,001 mg WITH MEALS PO Last administered on 07/24/18at 18:16; Admin Dose 2,001 MG; Start 07/24/18 at 17:55 Labetalol HCl (Normodyne) 100 mg BID PO Last administered on 07/24/18at 22:02; Admin Dose 100 MG; Start 07/24/18 at 21:00 Nifedipine (Procardia Xl) 30 mg DAILY PO ; Start 07/25/18 at 09:00 Pantoprazole (Protonix Tab) 40 mg DAILY@06 PO Last administered on 07/25/18at 06:00; Admin Dose 40 MG; Start 07/25/18 at 06:00 Hydralazine HCl (Apresoline) 10 mg Q6H PRN IV SBP>160 Last administered on 07/24/18at 16:45; Admin Dose 10 MG; Start 07/24/18 at 16:00 Morphine Sulfate (morphine) 2 mg Q4H PRN IV SEVERE PAIN LEVEL 7-10 Last adm inistered on 07/24/18at 17:34; Admin Dose 2 MG; Start 07/24/18 at 17:30 Epoetin [place] (Epogen (Esrd)) 20,000 units ONCE SC ; Start 07/25/18 at 09:00; Stop 07/25/18 at 23:59 BERTHA LAUREANO NP Jul 25, 2018 10:42
--- NOTE | 2018-07-25 10:59 | CONS ---
Assessment/Plan Assessment/Plan Assessment/Plan (Daily) Chest x-ray from yesterday showing small bilateral pleural effusions. CT abdomen pelvis as well as chest showing small to moderate bilateral pleural effusions with compressive atelectasis of lower lobe. Assessment recommendations; 1. Patient admitted with anemia with incidental discovery of pleural effusions on CT imaging of the abdomen/chest without any clinical symptoms whatsoever. This is likely from combination of CHF in conjunction with end-stage renal disease. Currently there is no evidence of any ongoing infective process. Patient is totally asymptomatic. 2. History of hypertension and chronic anemia. Continue current supportive care. Effusions will likely dissipate with he modialysis. At this time I would not recommend performing thoracentesis. Further recommendations per inside sales account executive. Consultation Date/Type/Reason Admit Date/Time Jul 24, 2018 at 11:04 Date of Consultation: Jul 25, 2018 Type of Consult Pulmonary Pulmonary consult requested for evaluation of pleural effusions. Patient is a pleasant 58-year-old male who was sent over to the hospital because of anemia. Patient has been transfused blood and is currently getting hemodialysis at bedside. Patient denies any respiratory symptoms whatsoever. By the time I saw him, patient is getting hemodialysis and did not appear to be in any distress whatsoever. He denies any chest pain, shortness of breath, coughing, wheezing, sputum production or hemoptysis. Denies any dyspnea on exertion. Denies any other constitutional symptoms. Past medical history; 1. History of chronic renal failure, on chronic hemodialysis. 2. History of hypertension. 3. Chronic anemia. Medications; reviewed. Allergies; penicillin. Family history; , no history of any illnesses in the family. Social history; no show any smoking, alcohol or drug abuse. Occupational history; patient is on disability. Review of systems; denies any headache, seizures, sinus symptoms. Any chest pain, shortness of breath, coughing, wheezing, sputum production. Denies any orthopnea. Denies any dyspnea on exertion. Denies any melena, hematochezia. Any urinary symptoms. Any edema. Any weight loss. General exam; middle-aged male, laying comfortably in bed. Getting hemodialysis at bedside. Currently no distress. Date/Time of Note DATE: 07/25/18 TIME: 10:55 Past Medical History Medical History: coronary artery disease, hypertension, renal disease Home Meds Reported Medications Calcium Acetate* (Calcium Acetate*) 667 Mg Capsule, 2001 MG PO WITH MEALS, #90 CAP 07/24/18 Nifedipine* (Nifedipine ER*) 30 Mg Tablet.sa, 30 MG PO DAILY, TAB.SA 07/24/18 Labetalol Hcl* (Labetalol Hcl*) 100 Mg Tablet, 100 MG PO BID, TAB 07/24/18 Furosemide* (Furosemide*) 80 Mg Tablet, 80 MG PO BID, #60 TAB 07/24/18 Amlodipine Besylate* (Norvasc*) 5 Mg Tablet, 5 MG PO DAILY, TAB 07/24/18 Medications Current Medications Ondansetron HCl (Zofran Inj) 4 mg ER BRIDGE PRN IV NAUSEA/VOMITING; Start 07/24/18 at 11:30; Stop 07/25/18 at 11:29 IV Flush (NS 3 ml) 3 ml PER PROTOCOL IV ; Start 07/24/18 at 14:30 Ondansetron HCl (Zofran Inj) 4 mg Q6H PRN IV NAUSEA/VOMITING; Start 07/24/18 at 14:30 Acetaminophen (Tylenol Tab) 650 mg Q6H PRN PO .PAIN 1-3 OR TEMP; Start 07/24/18 at 14:30 Acetaminophen/ Hydrocodone Bitart ([place] (5/325)) 1 tab Q6H PRN PO .MOD PAIN 4- 6; Start 07/24/18 at 14:30 Amlodipine Besylate (Norvasc) 5 mg DAILY PO ; Start 07/25/18 at 09:00 Calcium Acetate (Phoslo) 2,001 mg WITH MEALS PO Last administered on 07/24/18at 18:16; Admin Dose 2,001 MG; Start 07/24/18 at 17:55 Labetalol HCl (Normodyne) 100 mg BID PO Last administered on 07/24/18at 22:02; Admin Dose 100 MG; Start 07/24/18 at 21:00 Nifedipine (Procardia Xl) 30 mg DAILY PO ; Start 07/25/18 at 09:00 Pantoprazole (Protonix Tab) 40 mg DAILY@06 PO Last administered on 07/25/18at 06:00; Admin Dose 40 MG; Start 07/25/18 at 06:00 Hydralazine HCl (Apresoline) 10 mg Q6H PRN IV SBP>160 Last administered on 07/24/18at 16:45; Admin Dose 10 MG; Start 07/24/18 at 16:00 Morphine Sulfate (morphine) 2 mg Q4H PRN IV SEVERE PAIN LEVEL 7-10 Last administered on 07/24/18at 17:34; Admin Dose 2 MG; Start 07/24/18 at 17:30 Epoetin Woodrow (Epogen (Esrd)) 20,000 units ONCE SC ; Start 07/25/18 at 09:00; Stop 07/25/18 at 23:59 Allergies: Coded Allergies: Penicillins (Verified Allergy, Unknown, 07/24/18) amoxicillin (Verified Allergy, Unknown, 07/24/18) Past Surgical History Past Surgical Hx: other (Dialysis access placement) Social History Alcohol Use: none Smoking Status: Never smoker Drug Use: none Exam/Review of Systems Exam Vitals Vital Signs Date Temp Pulse Resp B/P (MAP) Pulse Ox O2 O2 Flow FiO2 Time Delivery Rate 07/25/18 79 10:30 07/25/18 18 170/88 100 Nasal 2.0 10:00 (115) Cannula 07/25/18 98.0 07:38 Intake and Output 07/24/18 07/24/18 07/25/18 1515:00 23:00 07:00 IntakeIntake Total 600 ml BalanceBalance 600 ml Exam HEENT exam; supple neck, no JVD. No lymphadenopathy. Midline trachea. No thyromegaly. Pharynx is clear. Patient has fair dentition. Pupils are midsize. No neck masses. Chest exam; diminished breath sounds bilaterally. No added sounds. S1-S2 audible, no murmurs. Regular rhythm. Abdomen exam; soft, nontender. No organomegaly. Bowel sounds audible. Extremity exam; no peripheral edema clubbing. HIGH TENSION TESTER exam; no focal deficit. Results Result Diagram: 07/25/18 0553 07/25/18 0552 Results 24hrs Laboratory Tests Test 07/24/18 14:22 07/24/18 15:12 07/24/18 15:13 07/25/18 05:52 Hepatitis A IgM NON-REACTIVE Antibody Carcinoembryonic 5.4 H Antigen Erythropoietin Pending Total Protein (PEP) 7.0 Albumin (PEP) Pending [id number] Pending [id number]-[id number] Pending Beta Globulins Pending Gamma Globulins Pending Protein Pending Electrophoresis Int erpret Prothrombin Time 14.6 Prothrombin Time 1.1 Ratio INR International 1.13 Normalized Ratio Activated 36.6 H Partial Thromboplas t Time Sodium Level 138 Potassium Level 5.6 H Chloride Level 102 Carbon Dioxide 19 L Level Anion Gap 17 H Blood Urea Nitrogen 65 H Creatinine 7.33 H Est Glomerular 8 L Filtrat Rate mL/min Glucose Level 83 # Calcium Level 8.3 L Total Bilirubin 2.5 H Direct Bilirubin 2.00 #H Indirect Bilirubin 0.5 Aspartate Amino 45 Transf (AST/SGOT) Alanine 22 Aminotransferase (A LT/SGPT) Alkaline 930 H Phosphatase Total Protein 7.7 # Albumin 3.1 L Globulin 4.60 H Albumin/Globulin 0.67 Ratio Test 07/25/18 05:53 White Blood Count 13.8 H Red Blood Count 3.03 L Hemoglobin 8.5 L Hematocrit 27.1 L Mean Corpuscular 89.4 Volume Mean Corpuscular 28.1 L Hemoglobin Mean Corpuscular 31.4 L Hemoglobin Concent Red Cell 20.7 H Distribution Width Platelet Count 510 H Mean Platelet 9.7 Volume Immature 0.600 H Granulocytes % Neutrophils % 83.0 H Lymphocytes % 6.8 L Monocytes % 6.3 Eosinophils % 2.8 Basophils % 0.5 Nucleated Red Blood 0.0 Cells % Immature 0.080 H Granulocytes # Neutrophils # 11.4 H Lymphocytes # 0.9 Monocytes # 0.9 Eosinophils # 0.4 Basophils # 0.1 Nucleated Red Blood 0.0 Cells # Phosphorus Level 10.1 H Magnesium Level 2.4 Triglycerides Level 121 Cholesterol Level 310 H LDL Cholesterol, 260 Calculated HDL Cholesterol 26 L Cholesterol/HDL 11.9 Ratio CA 19-9 Antigen < 1.4 Thyroid Stimulating 3.730 Hormone (TSH) Free Thyroxine 1.95 H Medications Medication Current Medications Ondansetron HCl (Zofran Inj) 4 mg ER BRIDGE PRN IV NAUSEA/VOMITING; Start 07/24/18 at 11:30; Stop 07/25/18 at 11:29 IV Flush (NS 3 ml) 3 ml PER PROTOCOL IV ; Start 07/24/18 at 14:30 Ondansetron HCl (Zofran Inj) 4 mg Q6H PRN IV NAUSEA/VOMITING; Start 07/24/18 at 14:30 Acetaminophen (Tylenol Tab) 650 mg Q6H PRN PO .PAIN 1-3 OR TEMP; Start 07/24/18 at 14:30 Acetaminophen/ Hydrocodone Bitart ([place] (5/325)) 1 tab Q6H PRN PO .MOD PAIN 4- 6; Start 07/24/18 at 14:30 Amlodipine Besylate (Norvasc) 5 mg DAILY PO ; Start 07/25/18 at 09:00 Calcium Acetate (Phoslo) 2,001 mg WITH MEALS PO Last administered on 07/24/18at 18:16; Admin Dose 2,001 MG; Start 07/24/18 at 17:55 Labetalol HCl (Normodyne) 100 mg BID PO Last administered on 07/24/18at 22:02; Admin Dose 100 MG; Start 07/24/18 at 21:00 Nifedipine (Procardia Xl) 30 mg DAILY PO ; Start 07/25/18 at 09:00 Pantoprazole (Protonix Tab) 40 mg DAILY@06 PO Last administered on 07/25/18at 06:00; Admin Dose 40 MG; Start 07/25/18 at 06:00 Hydralazine HCl (Apresoline) 10 mg Q6H PRN IV SBP>160 Last administered on 07/24/18at 16:45; Admin Dose 10 MG; Start 07/24/18 at 16:00 Morphine Sulfate (morphine) 2 mg Q4H PRN IV SEVERE PAIN LEVEL 7-10 Last administered on 07/24/18at 17:34; Admin Dose 2 MG; Start 07/24/18 at 17:30 Epoetin Woodrow (Epogen (Esrd)) 20,000 units ONCE SC ; Start 07/25/18 at 09:00; Stop 07/25/18 at 23:59 ISAÍAS SULLIVAN Jul 25, 2018 10:59
[2018-07-25] MEDS ORDERED: PROPOFOL 200 MG INJ ONE (13:20)
[2018-07-25] MEDS ORDERED: CEFAZOLIN 1 GM INJ ONE (13:20)
[2018-07-25] MEDS ORDERED: PROPOFOL 40 ML ONE (13:22)
[2018-07-25] MEDS ORDERED: LIDOCAINE 2% (SDV) 5 ML INJ ONE (13:22)
[2018-07-25] MEDS ORDERED: FENTAnyl 50 MCG/ML VIAL ONE (13:22)
[2018-07-25] MEDS ORDERED: MIDAZOLAM 1 MG/ML 2 ML INJ ONE (13:22)
[2018-07-25] MEDS ORDERED: CEFAZOLIN 1 GM/50 ML (PMX) 0 ML IVPB ONE (13:23)
[2018-07-25] MEDS ORDERED: LIDOCAINE 1% (MDV) 20 ML INJ ONE (13:49)
--- NOTE | 2018-07-25 13:54 | PREAC ---
Date/Time of Note Date/Time of Note DATE: 07/25/18 TIME: 13:46 Anesthesia Eval and Record Evaluation Time Pre-Procedure Interview DATE: 07/25/18 TIME: 13:46 Age 58 Sex male NPO: 8 hrs Preoperative diagnosis severe anemia Planned procedure bone marrow aspiration Past Medical History Past Medical History: Includes Cardio: HTN, Dyslipidemia Renal: ESRD on dialysis, HD last: Heme: Anemia Surgery & Anesthesia Issues No known issue Meds Anticoagulation: No Beta Priyanka within 24 hr: No Reason Beta Priyanka not given: Pt. not on B-Priyanka Reported Medications Calcium Acetate* (Calcium Acetate*) 667 Mg Capsule, 2001 MG PO WITH MEALS, #90 CAP 07/24/18 Nifedipine* (Nifedipine ER*) 30 Mg Tablet.sa, 30 MG PO DAILY, TAB.SA 07/24/18 Labetalol Hcl* (Labetalol Hcl*) 100 Mg Tablet, 100 MG PO BID, TAB 07/24/18 Furosemide* (Furosemide*) 80 Mg Tablet, 80 MG PO BID, #60 TAB 07/24/18 Amlodipine Besylate* (Norvasc*) 5 Mg Tablet, 5 MG PO DAILY, TAB 07/24/18 Current Medications IV Flush (NS 3 ml) 3 ml PER PROTOCOL IV ; Start 07/24/18 at 14:30 Ondansetron HCl (Zofran Inj) 4 mg Q6H PRN IV NAUSEA/VOMITING; Start 07/24/18 at 14:30 Acetaminophen (Tylenol Tab) 650 mg Q6H PRN PO .PAIN 1-3 OR TEMP; Start 07/24/18 at 14:30 Acetaminophen/ Hydrocodone Bitart ([place] (5/325)) 1 tab Q6H PRN PO .MOD PAIN 4- 6; Start 07/24/18 at 14:30 Amlodipine Besylate (Norvasc) 5 mg DAILY PO ; Start 07/25/18 at 09:00 Calcium Acetate (Phoslo) 2,001 mg WITH MEALS PO Last administered on 07/24/18at 18:16; Admin Dose 2,001 MG; Start 07/24/18 at 17:55 Labetalol HCl (Normodyne) 100 mg BID PO Last administered on 07/24/18at 22:02; Admin Dose 100 MG; Start 07/24/18 at 21:00 Nifedipine (Procardia Xl) 30 mg DAILY PO ; Start 07/25/18 at 09:00 Pantoprazole (Protonix Tab) 40 mg DAILY@06 PO Last administered on 07/25/18at 06:00; Admin Dose 40 MG; Start 07/25/18 at 06:00 Hydralazine HCl (Apresoline) 10 mg Q6H PRN IV SBP>160 Last administered on 07/24/18at 16:45; Admin Dose 10 MG; Start 07/24/18 at 16:00 Morphine Sulfate (morphine) 2 mg Q4H PRN IV SEVERE PAIN LEVEL 7-10 Last administered on 07/24/18at 17:34; Admin Dose 2 MG; Start 07/24/18 at 17:30 Epoetin Woodrow (Epogen (Esrd)) 20,000 units ONCE SC ; Start 07/25/18 at 09:00; Stop 07/25/18 at 23:59 Meds reviewed: Yes Allergies Coded Allergies: Penicillins (Verified Allergy, Unknown, 07/24/18) amoxicillin (Verified Allergy, Unknown, 07/24/18) Allergies Reviewed: Yes Labs/Studies Labs Reviewed: Reviewed by anesthesiologist Result Diagram: 07/25/18 0553 07/25/18 0552 Laboratory Tests 07/25/18 05:52 07/25/18 05:53 test: N/A Studies: ECG Pre-procedure Exam Last vitals Vital Signs Date Temp Pulse Resp B/P (MAP) Pulse Ox O2 O2 Flow FiO2 Time Delivery Rate 07/25/18 75 13:05 07/25/18 18 184/95 100 Nasal 2.0 13:00 (124) Cannula 07/25/18 98.0 07:38 Airway: Adequate mouth opening, Adequate thyromental dist Mallampati: Mallampati II Teeth: Normal Lung: Normal Heart: Normal ASA Physical Status ASA physical status: 3 Emergency: None Planned Anesthetic General/MAC: MAC Planned Pain Management Parenteral pain med Pre-operative Attestations Prior to commencing anesthesia and surgery, the patient was re-evaluated, there was verification of: *The patient's identity *The results of appropriate recent lab work and preoperative vital signs *The above evaluation not changing prior to induction *Anesthetic plan, risk benefits, alternative and complications discussed with patient/family; questions answered; patient/family understands, accepts and wishes to proceed. CORINA MARTINEZ MD Jul 25, 2018 13:54
--- NOTE | 2018-07-25 14:02 | PN ---
Date/Time of Note Date/Time of Note DATE: 07/25/18 TIME: 13:50 Assessment/Plan VTE Prophylaxis Risk score (from [place])>0 risk: 3 [place] [facility] [place] contraindicated: low risk/ambulating Pharmacological prophylaxis: NA/contraindicated Pharm contraindication: liver dx Lines/Catheters [facility] PERMACATH Assessment/Plan Assessment/Plan Assessment: Elevated LFTs with direct hyperbilirubinemia (Elevated alkaline phosphatase 1457 -trending down) Elevated lactate dehydrogenase Small amount of ascites on CT/anasarca 60lb weight loss over 6 months Normocytic anemia Thrombocytosis ESRD on HD HTN Chronic n/v Tumor markers are negative Plan: MRCP- to assess biliary duct CT abd/pelvis- assess for malignancy Alk phos fractionation EGD/colon in near future Patient seen in collaboration with Dr. Del Rio Subjective: Patient is currently off the floor for bone marrow biopsy. Tumor markers were negative. Results of abdominal CT reviewed. Hepatomegaly with heterogeneous appearance suggestive of congestive heart failure or hepatic congestion. Left quadricep muscle myonecrosis versus malignancy. Several pulmonary nodules noted. PHYSICAL EXAMINATION: Patient is currently off the floor for bone marrow biopsy Result Diagram: 07/25/18 0553 07/25/18 0552 Results 24hrs Laboratory Tests Test 07/24/18 14:22 07/24/18 15:12 07/24/18 15:13 07/25/18 05:52 Hepatitis A IgM NON-REACTIVE Antibody Carcinoembryonic 5.4 H Antigen Haptoglobin <8 L Erythropoietin Pending Total Protein (PEP) 7.0 Albumin (PEP) Pending [id number]-[id number] Pending Gboxj-0-Akscjqrsc Pending Beta Globulins Pending Gamma Globulins Pending Protein Pending Electrophoresis Int erpret Prothrombin Time 14.6 Prothrombin Time 1.1 Ratio INR International 1.13 Normalized Ratio Activated 36.6 H Partial Thromboplas t Time Sodium Level 138 Potassium Level 5.6 H Chloride Level 102 Carbon Dioxide 19 L Level Anion Gap 17 H Blood Urea Nitrogen 65 H Creatinine 7.33 H Est Glomerular 8 L Filtrat Rate mL/min Glucose Level 83 # Calcium Level 8.3 L Total Bilirubin 2.5 H Direct Bilirubin 2.00 #H Indirect Bilirubin 0.5 Aspartate Amino 45 Transf (AST/SGOT) Alanine 22 Aminotransferase (A LT/SGPT) Alkaline 930 H Phosphatase Total Protein 7.7 # Albumin 3.1 L Globulin 4.60 H Albumin/Globulin 0.67 Ratio Test 07/25/18 05:53 White Blood Count 13.8 H Red Blood Count 3.03 L Hemoglobin 8.5 L Hematocrit 27.1 L Mean Corpuscular 89.4 Volume Mean Corpuscular 28.1 L Hemoglobin Mean Corpuscular 31.4 L Hemoglobin Concent Red Cell 20.7 H Distribution Width Platelet Count 510 H Mean Platelet 9.7 Volume Immature 0.600 H Granulocytes % Neutrophils % 83.0 H Lymphocytes % 6.8 L Monocytes % 6.3 Eosinophils % 2.8 Basophils % 0.5 Nucleated Red Blood 0.0 Cells % Immature 0.080 H Granulocytes # Neutrophils # 11.4 H Lymphocytes # 0.9 Monocytes # 0.9 Eosinophils # 0.4 Basophils # 0.1 Nucleated Red Blood 0.0 Cells # Phosphorus Level 10.1 H Magnesium Level 2.4 Triglycerides Level 121 Cholesterol Level 310 H LDL Cholesterol, 260 Calculated HDL Cholesterol 26 L Cholesterol/HDL 11.9 Ratio CA 19-9 Antigen < 1.4 Thyroid Stimulating 3.730 Hormone (TSH) Free Thyroxine 1.95 H CC: ROHAN DICKEY MD ; Exam/Review of Systems Exam Vitals Vital Signs Date Temp Pulse Resp B/P (MAP) Pulse Ox O2 O2 Flow FiO2 Time Delivery Rate 07/25/18 75 13:05 07/25/18 18 184/95 100 Nasal 2.0 13:00 (124) Cannula 07/25/18 98.0 07:38 Intake and Output 07/24/18 07/24/18 07/25/18 1515:00 23:00 07:00 IntakeIntake Total 600 ml BalanceBalance 600 ml Results Results 24hrs Laboratory Tests Test 07/24/18 14:22 07/24/18 15:12 07/24/18 15:13 07/25/18 05:52 Hepatitis A IgM NON-REACTIVE Antibody Carcinoembryonic 5.4 H Antigen Haptoglobin <8 L Erythropoietin Pending Total Protein (PEP) 7.0 Albumin (PEP) Pending Vmcyt-0-Lgosezoaq Pending Dovyv-9-Syehjubdn Pending Beta Globulins Pending Gamma Globulins Pending Protein Pending Electrophoresis Int erpret Prothrombin Time 14.6 Prothrombin Time 1.1 Ratio INR International 1.13 Normalized Ratio Activated 36.6 H Partial Thromboplas t Time Sodium Level 138 Potassium Level 5.6 H Chloride Level 102 Carbon Dioxide 19 L Level Anion Gap 17 H Blood Urea Nitrogen 65 H Creatinine 7.33 H Est Glomerular 8 L Filtrat Rate mL/min Glucose Level 83 # Calcium Level 8.3 L Total Bilirubin 2.5 H Direct Bilirubin 2.00 #H Indirect Bilirubin 0.5 Aspartate Amino 45 Transf (AST/SGOT) Alanine 22 Aminotransferase (A LT/SGPT) Alkaline 930 H Phosphatase Total Protein 7.7 # Albumin 3.1 L Globulin 4.60 H Albumin/Globulin 0.67 Ratio Test 07/25/18 05:53 White Blood Count 13.8 H Red Blood Count 3.03 L Hemoglobin 8.5 L Hematocrit 27.1 L Mean Corpuscular 89.4 Volume Mean Corpuscular 28.1 L Hemoglobin Mean Corpuscular 31.4 L Hemoglobin Concent Red Cell 20.7 H Distribution Width Platelet Count 510 H Mean Platelet 9.7 Volume Immature 0.600 H Granulocytes % Neutrophils % 83.0 H Lymphocytes % 6.8 L Monocytes % 6.3 Eosinophils % 2.8 Basophils % 0.5 Nucleated Red Blood 0.0 Cells % Immature 0.080 H Granulocytes # Neutrophils # 11.4 H Lymphocytes # 0.9 Monocytes # 0.9 Eosinophils # 0.4 Basophils # 0.1 Nucleated Red Blood 0.0 Cells # Phosphorus Level 10.1 H Magnesium Level 2.4 Triglycerides Level 121 Cholesterol Level 310 H LDL Cholesterol, 260 Calculated HDL Cholesterol 26 L Cholesterol/HDL 11.9 Ratio CA 19-9 Antigen < 1.4 Thyroid Stimulating 3.730 Hormone (TSH) Free Thyroxine 1.95 H Medications Medication Current Medications IV Flush (NS 3 ml) 3 ml PER PROTOCOL IV ; Start 07/24/18 at 14:30 Ondansetron HCl (Zofran Inj) 4 mg Q6H PRN IV NAUSEA/VOMITING; Start 07/24/18 at 14:30 Acetaminophen (Tylenol Tab) 650 mg Q6H PRN PO .PAIN 1-3 OR TEMP; Start 07/24/18 at 14:30 Acetaminophen/ Hydrocodone Bitart ([place] (5/325)) 1 tab Q6H PRN PO .MOD PAIN 4- 6; Start 07/24/18 at 14:30 Amlodipine Besylate (Norvasc) 5 mg DAILY PO ; Start 07/25/18 at 09:00 Calcium Acetate (Phoslo) 2,001 mg WITH MEALS PO Last administered on 07/24/18at 18:16; Admin Dose 2,001 MG; Start 07/24/18 at 17:55 Labetalol HCl (Normodyne) 100 mg BID PO Last administered on 07/24/18at 22:02; Admin Dose 100 MG; Start 07/24/18 at 21:00 Nifedipine (Procardia Xl) 30 mg DAILY PO ; Start 07/25/18 at 09:00 Pantoprazole (Protonix Tab) 40 mg DAILY@06 PO Last administered on 07/25/18at 06:00; Admin Dose 40 MG; Start 07/25/18 at 06:00 Hydralazine HCl (Apresoline) 10 mg Q6H PRN IV SBP>160 Last administered on 07/24/18at 16:45; Admin Dose 10 MG; Start 07/24/18 at 16:00 Morphine Sulfate (morphine) 2 mg Q4H PRN IV SEVERE PAIN LEVEL 7-10 Last administered on 07/24/18at 17:34; Admin Dose 2 MG; Start 07/24/18 at 17:30 Epoetin Woodrow (Epogen (Esrd)) 20,000 units ONCE SC ; Start 07/25/18 at 09:00; Stop 07/25/18 at 23:59 KRIS ROSADO NP Jul 25, 2018 14:01
--- NOTE | 2018-07-25 14:55 | PAC ---
Date/Time of Note Date/Time of Note DATE: 07/25/18 TIME: 14:54 Post-Anesthesia Notes Post-Anesthesia Note Last documented vital signs Vital Signs Date Temp Pulse Resp B/P (MAP) Pulse Ox O2 O2 Flow FiO2 Time Delivery Rate 07/25/18 75 13:05 07/25/18 18 184/95 100 Nasal 2.0 13:00 (124) Cannula 07/25/18 98.0 07:38 Activity: WNL Respiratory function: WNL Cardiovascular function: WNL Mental status: Baseline Pain reasonably controlled: Yes Hydration appropriate: Yes Nausea/Vomiting absent: Yes Comments BP:126/78, P:78,Spo2:100%, T:98,8 CORINA MARTINEZ MD Jul 25, 2018 14:54
[2018-07-25] MEDS ORDERED: MEPERIDINE 25 MG INJ IV PRN (15:00)
[2018-07-25] MEDS ORDERED: HYDROmorphONE 1 MG/5 ML IV SYRINGE IV PRN ×2 (15:00)
[2018-07-25] MEDS ORDERED: hydrALAzine 20 MG INJ IV PRN (15:00)
[2018-07-25] MEDS ORDERED: LABETALOL HCL 20MG INJ IV PRN (15:00)
[2018-07-25] MEDS ORDERED: DIPHENHYDRAMINE 50 MG INJ IV PRN (15:00)
[2018-07-25] MEDS ORDERED: FENTAnyl 50 MCG/ML VIAL IV PRN (15:00)
[2018-07-25] MEDS ORDERED: ONDANSETRON 4 MG INJ IV PRN (15:00)
--- NOTE | 2018-07-25 15:22 | HPN ---
Date/Time of Note Date/Time of Note DATE: 07/25/18 TIME: 15:22 Interval H&P Admission Note Pt. seen H&P reviewed: No system changes LUBNA OAKLEY MD Jul 25, 2018 15:22
--- NOTE | 2018-07-25 17:20 | CONS ---
Assessment/Plan Assessment/Plan Hospital Course (Demo Recall) #Anemia -Although the LDH is high and haptogobin is low, the normal indirect bili, negative vahid and and unremarkable smear do not support hemolysis. Furthermore the elevated LDH and low haptoglobin may be due to the liver inflammation -Vitamin b12 and folate are normal -iron studies are consistent with anemia of chronic inflammation -continue procrit 10,000 units three times weekly -pt had bone marrow bx done, will follow up #CHF -pt has BNP > 10,000 -continue Beta Blockade -consider Cardiology consult #ESRD -continue HD Consultation Date/Type/Reason Admit Date/Time Jul 24, 2018 at 11:04 Date of Consultation: Jul 25, 2018 Type of Consult Hematology Reason for Consultation anemia Requesting Provider: BERTHA LAUREANO NP Date/Time of Note DATE: 07/25/18 TIME: 17:00 Hx of Present Illness 58-year-old male with multiple medical problems including end-stage renal disease on hemodialysis Saturday/Saturday/Saturday, and hypertension, who came to the emergency room 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 Pt has s sahra been transfused 2 units of PRBCs. Anemia labs thus far reveal a high LDH 857, low haptoglobin < 8, and elevated retic. Although indirect bili is normal. Indirect and Direct vahid are normal. Pt is noted to have hepatic congestion for CHF and a markedly elevated BNP. Pt has since had a bone marrow bx Constitutional: no complaints, diaphoresis Eyes: no complaints ENT: no complaints Respiratory: shortness of breath Cardiovascular: lightheadedness Gastrointestinal: decreased appetite Genitourinary: no complaints Musculoskeletal: bone/joint pain Past Medical History Medical History: coronary artery disease, hypertension, renal disease Home Meds Reported Medications Calcium Acetate* (Calcium Acetate*) 667 Mg Capsule, 2001 MG PO WITH MEALS, #90 CAP 07/24/18 Nifedipine* (Nifedipine ER*) 30 Mg Tablet.sa, 30 MG PO DAILY, TAB.SA 07/24/18 Labetalol Hcl* (Labetalol Hcl*) 100 Mg Tablet, 100 MG PO BID, TAB 07/24/18 Furosemide* (Furosemide*) 80 Mg Tablet, 80 MG PO BID, #60 TAB 07/24/18 Amlodipine Besylate* (Norvasc*) 5 Mg Tablet, 5 MG PO DAILY, TAB 07/24/18 Medications Current Medications IV Flush (NS 3 ml) 3 ml PER PROTOCOL IV ; Start 07/24/18 at 14:30 Ondansetron HCl (Zofran Inj) 4 mg Q6H PRN IV NAUSEA/VOMITING; Start 07/24/18 at 14:30 Acetaminophen (Tylenol Tab) 650 mg Q6H PRN PO .PAIN 1-3 OR TEMP; Start 07/24/18 at 14:30 Acetaminophen/ Hydrocodone Bitart ([place] (5/325)) 1 tab Q6H PRN PO .MOD PAIN 4- 6; Start 07/24/18 at 14:30 Amlodipine Besylate (Norvasc) 5 mg DAILY PO ; Start 07/25/18 at 09:00 Calcium Acetate (Phoslo) 2,001 mg WITH MEALS PO Last administered on 07/24/18at 18:16; Admin Dose 2,001 MG; Start 07/24/18 at 17:55 Labetalol HCl (Normodyne) 100 mg BID PO Last administered on 07/24/18at 22:02; Admin Dose 100 MG; Start 07/24/18 at 21:00 Nifedipine (Procardia Xl) 30 mg DAILY PO ; Start 07/25/18 at 09:00 Pantoprazole (Protonix Tab) 40 mg DAILY@06 PO Last administered on 07/25/18at 06:00; Admin Dose 40 MG; Start 07/25/18 at 06:00 Hydralazine HCl (Apresoline) 10 mg Q6H PRN IV SBP>160 Last administered on at 16:45; Admin Dose 10 MG; Start 07/24/18 at 16:00 Morphine Sulfate (morphine) 2 mg Q4H PRN IV SEVERE PAIN LEVEL 7-10 Last administered on 07/24/18at 17:34; Admin Dose 2 MG; Start 07/24/18 at 17:30 Epoetin Woodrow (Epogen (Esrd)) 20,000 units ONCE SC Last administered on 07/25/18at 16:35; Admin Dose 20,000 UNITS; Start 07/25/18 at 09:00; Stop 07/25/18 at 23:59 Hydromorphone HCl (Dilaudid) 0.2 mg PACU PRN IV MILD PAIN 1-3; Start 07/25/18 at 15:00; Stop 07/25/18 at 19:00 Hydromorphone HCl (Dilaudid) 0.4 mg PACU PRN IV MOD PAIN 4-6; Start 07/25/18 at 15:00; Stop 07/25/18 at 19:00 Fentanyl (Sublimaze) 25 mcg PACU ORDER PRN IV MILD PAIN 1-3; Start 07/25/18 at 15:00; Stop 07/25/18 at 19:00 Ondansetron HCl (Zofran Inj) 4 mg PACU ORDER PRN IV NAUSEA/VOMITING; Start 07/25/18 at 15:00; Stop 07/25/18 at 19:00 Labetalol HCl (Labetalol) 5 mg PACU ORDER PRN IV HIGH BLOOD PRESSURE; Start 07/25/18 at 15:00; Stop 07/25/18 at 19:00 Hydralazine HCl (Apresoline) 5 mg PACU ORDER PRN IV HIGH BLOOD PRESSURE Last administered on 07/25/18at 14:59; Admin Dose 5 MG; Start 07/25/18 at 15:00; Stop 07/25/18 at 19:00 Meperidine HCl (Demerol) 25 mg PACU ORDER PRN IV .RIGORS; Start 07/25/18 at 15:00; Stop 07/25/18 at 19:00 Diphenhydramine HCl (Benadryl) 25 mg PACU ORDER PRN IV .PRURITUS; Start 07/25/18 at 15:00; Stop 07/25/18 at 19:00 Allergies: Coded Allergies: Penicillins (Verified Allergy, Unknown, 07/24/18) amoxicillin (Verified Allergy, Unknown, 07/24/18) Past Surgical History Past Surgical Hx: other (Dialysis access placement) Family History Significant Family History: no pertinent family hx Social History Alcohol Use: none Smoking Status: Never smoker Drug Use: none Exam/Review of Systems Exam Vitals Vital Signs Date Temp Pulse Resp B/P (MAP) Pulse Ox O2 O2 Flow FiO2 Time Delivery Rate 07/25/18 98.0 78 18 129/63 99 Nasal 15:46 (85) Cannula 07/25/18 2.0 15:33 Intake and Output 07/24/18 07/24/18 07/25/18 1515:00 23:00 07:00 IntakeIntake Total 600 ml BalanceBalance 600 ml Constitutional: alert, oriented, frail Psych: anxiety, depression Head: normocephalic Eyes: nl conjunctiva ENMT: nl external ears & nose Neck: supple Respiratory: clear to auscultation Cardiovascular: regular rate and rhythm Gastrointestinal: soft Musculoskeletal: nl extremities to inspection Results Result Diagram: 07/25/18 0553 07/25/18 0552 Results 24hrs Laboratory Tests Test 07/25/18 05:52 07/25/18 05:53 Prothrombin Time 14.6 Prothrombin Time Ratio 1.1 INR International Normalized Ratio 1.13 Activated Partial Thromboplast Time 36.6 H Sodium Level 138 Potassium Level 5.6 H Chloride Level 102 Carbon Dioxide Level 19 L Anion Gap 17 H Blood Urea Nitrogen 65 H Creatinine 7.33 H Est Glomerular Filtrat Rate mL/min 8 L Glucose Level 83 # Calcium Level 8.3 L Total Bilirubin 2.5 H Direct Bilirubin 2.00 #H Indirect Bilirubin 0.5 Aspartate Amino Transf (AST/SGOT) 45 Alanine Aminotransferase (ALT/SGPT) 22 Alkaline Phosphatase 930 H Total Protein 7.7 # Albumin 3.1 L Globulin 4.60 H Albumin/Globulin Ratio 0.67 White Blood Count 13.8 H Red Blood Count 3.03 L Hemoglobin 8.5 L Hematocrit 27.1 L Mean Corpuscular Volume 89.4 Mean Corpuscular Hemoglobin 28.1 L Mean Corpuscular Hemoglobin Concent 31.4 L Red Cell Distribution Width 20.7 H Platelet Count 510 H Mean Platelet Volume 9.7 Immature Granulocytes % 0.600 H Neutrophils % 83.0 H Lymphocytes % 6.8 L Monocytes % 6.3 Eosinophils % 2.8 Basophils % 0.5 Nucleated Red Blood Cells % 0.0 Immature Granulocytes # 0.080 H Neutrophils # 11.4 H Lymphocytes # 0.9 Monocytes # 0.9 Eosinophils # 0.4 Basophils # 0.1 Nucleated Red Blood Cells # 0.0 Phosphorus Level 10.1 H Magnesium Level 2.4 Triglycerides Level 121 Cholesterol Level 310 H LDL Cholesterol, Calculated 260 HDL Cholesterol 26 L Cholesterol/HDL Ratio 11.9 CA 19-9 Antigen < 1.4 Thyroid Stimulating Hormone (TSH) 3.730 Free Thyroxine 1.95 H Medications Medication Current Medications IV Flush (NS 3 ml) 3 ml PER PROTOCOL IV ; Start 07/24/18 at 14:30 Ondansetron HCl (Zofran Inj) 4 mg Q6H PRN IV NAUSEA/VOMITING; Start 07/24/18 at 14:30 Acetaminophen (Tylenol Tab) 650 mg Q6H PRN PO .PAIN 1-3 OR TEMP; Start 07/24/18 at 14:30 Acetaminophen/ Hydrocodone Bitart ([place] (5/325)) 1 tab Q6H PRN PO .MOD PAIN 4- 6; Start 07/24/18 at 14:30 Amlodipine Besylate (Norvasc) 5 mg DAILY PO ; Start 07/25/18 at 09:00 Calcium Acetate (Phoslo) 2,001 mg WITH MEALS PO Last administered on 07/24/18at 18:16; Admin Dose 2,001 MG; Start 07/24/18 at 17:55 Labetalol HCl (Normodyne) 100 mg BID PO Last administered on 07/24/18at 22:02; Admin Dose 100 MG; Start 07/24/18 at 21:00 Nifedipine (Procardia Xl) 30 mg DAILY PO ; Start 07/25/18 at 09:00 Pantoprazole (Protonix Tab) 40 mg DAILY@06 PO Last administered on 07/25/18at 06:00; Admin Dose 40 MG; Start 07/25/18 at 06:00 Hydralazine HCl (Apresoline) 10 mg Q6H PRN IV SBP>160 Last administered on 07/24/18at 16:45; Admin Dose 10 MG; Start 07/24/18 at 16:00 Morphine Sulfate (morphine) 2 mg Q4H PRN IV SEVERE PAIN LEVEL 7-10 Last administered on 07/24/18at 17:34; Admin Dose 2 MG; Start 07/24/18 at 17:30 Epoetin Woodrow (Epogen (Esrd)) 20,000 units ONCE SC Last administered on 07/25/18at 16:35; Admin Dose 20,000 UNITS; Start 07/25/18 at 09:00; Stop 07/25/18 at 23:59 Hydromorphone HCl (Dilaudid) 0.2 mg PACU PRN IV MILD PAIN 1-3; Start 07/25/18 at 15:00; Stop 07/25/18 at 19:00 Hydromorphone HCl (Dilaudid) 0.4 mg PACU PRN IV MOD PAIN 4-6; Start 07/25/18 at 15:00; Stop 07/25/18 at 19:00 Fentanyl (Sublimaze) 25 mcg PACU ORDER PRN IV MILD PAIN 1-3; Start 07/25/18 at 15:00; Stop 07/25/18 at 19:00 Ondansetron HCl (Zofran Inj) 4 mg PACU ORDER PRN IV NAUSEA/VOMITING; Start 07/25 at 15:00; Stop 07/25/18 at 19:00 Labetalol HCl (Labetalol) 5 mg PACU ORDER PRN IV HIGH BLOOD PRESSURE; Start 07/25/18 at 15:00; Stop 07/25/18 at 19:00 Hydralazine HCl (Apresoline) 5 mg PACU ORDER PRN IV HIGH BLOOD PRESSURE Last administered on 07/25/18at 14:59; Admin Dose 5 MG; Start 07/25/18 at 15:00; Stop 07/25/18 at 19:00 Meperidine HCl (Demerol) 25 mg PACU ORDER PRN IV .RIGORS; Start 07/25/18 at 15:00; Stop 07/25/18 at 19:00 Diphenhydramine HCl (Benadryl) 25 mg PACU ORDER PRN IV .PRURITUS; Start 07/25/18 at 15:00; Stop 07/25/18 at 19:00 KIRILL VAZ M.D. Jul 25, 2018 17:10
[2018-07-25] MEDS ORDERED: ALTEPLASE (CATHFLO) 2 MG INJ CATHETER PRN (21:30)
[2018-07-26] MEDS: LABETALOL 100 MG TAB PO SCH ×3 (00:29→21:00)
[2018-07-26 01:16] VITALS: BP 120/60; PULSE 82; RESP 20
[2018-07-26] MEDS: PANTOPRAZOLE (EC) 40 MG TAB PO SCH (06:13)
[2018-07-26 07:44] VITALS: BP 128/68; PULSE 78; RESP 16
[2018-07-26] MEDS: NIFEdipine (XL) 30 MG TAB PO SCH (09:00)
[2018-07-26] MEDS: AMLODIPINE 5 MG TAB PO SCH (09:00)
--- NOTE | 2018-07-26 11:33 | CONS ---
Assessment/Plan Assessment/Plan Assessment/Plan (Daily) Persistent Anemia despite max dose of erythropoietin & IRON as out patient Anemia work up in progress Will plan for HD in AM May need transfusion depending on the H/H levels in AM BP control High Protein diet Follow up with Phos Feels better GI work up noted for today Bedside dialysis Labs Pending for today On EPO + IRON as out patient 20K procrit today SQ x 1 dose today - Had HD yesterday - Feels better with some dizziness on walking - H/H stable - GI work up noted - OK to hold PHOS BINDER "PHOSLO" for now due to GI side effects . I will bring him some samples as out aptient - I went over high Phos foods - OK for discharge from [facility] - D/W Consultation Date/Type/Reason Admit Date/Time Jul 26, 2018 at 08:01 Initial Consult Date 07/24/18 Type of Consult - Nephrology Requesting Provider: BERTHA LAUREANO NP Date/Time of Note DATE: 07/26/18 TIME: 11:31 24 HR Interval Summary Constitutional: no complaints, improved Exam/Review of Systems Exam Vitals Vital Signs Date Temp Pulse Resp B/P (MAP) Pulse Ox O2 O2 Flow FiO2 Time Delivery Rate 07/26/18 98.4 78 16 128/68 99 07:44 (88) 07/26/18 Room Air 01:16 07/25/18 2.0 17:56 Intake and Output 07/25/18 07/25/18 07/26/18 1515:00 23:00 07:00 OutputOutput Total 3400 ml BalanceBalance -3400 ml Constitutional: alert, oriented Psych: no complaints Head: normocephalic Eyes: nl conjunctiva Respiratory: crackles/rales Cardiovascular: regular rate and rhythm, systolic murmur Gastrointestinal: soft Results Result Diagram: 07/26/18 0600 07/26/18 0600 Results 24hrs Laboratory Tests Test 07/26/18 06:00 White Blood Count 14.1 H Red Blood Count 3.08 L Hemoglobin 8.7 L Hematocrit 27.6 L Mean Corpuscular Volume 89.6 Mean Corpuscular Hemoglobin 28.2 L Mean Corpuscular Hemoglobin Concent 31.5 L Red Cell Distribution Width 20.5 H Platelet Count 506 H Mean Platelet Volume 10.0 Immature Granulocytes % 0.600 H Neutrophils % 84.0 H Lymphocytes % 6.3 L Monocytes % 7.4 Eosinophils % 1.3 Basophils % 0.4 Nucleated Red Blood Cells % 0.0 Immature Granulocytes # 0.090 H Neutrophils # 11.8 H Lymphocytes # 0.9 Monocytes # 1.0 H Eosinophils # 0.2 Basophils # 0.1 Nucleated Red Blood Cells # 0.0 Sodium Level 139 Potassium Level 4.4 Chloride Level 102 Carbon Dioxide Level 24 Anion Gap 13 Blood Urea Nitrogen 37 #H Creatinine 4.75 #H Est Glomerular Filtrat Rate mL/min 13 L Glucose Level 86 Calcium Level 8.2 L Phosphorus Level 7.2 #H Magnesium Level 2.2 Total Bilirubin 2.6 H Direct Bilirubin 1.90 H Indirect Bilirubin 0.7 Aspartate Amino Transf (AST/SGOT) 43 Alanine Aminotransferase (ALT/SGPT) 14 Alkaline Phosphatase 956 H Total Protein 7.7 Albumin 3.1 L Globulin 4.60 H Albumin/Globulin Ratio 0.67 Medications Medication Current Medications IV Flush (NS 3 ml) 3 ml PER PROTOCOL IV ; Start 07/24/18 at 14:30 Ondansetron HCl (Zofran Inj) 4 mg Q6H PRN IV NAUSEA/VOMITING Last administered on 07/25/18at 23:59; Admin Dose 4 MG; Start 07/24/18 at 14:30 Acetaminophen (Tylenol Tab) 650 mg Q6H PRN PO .PAIN 1-3 OR TEMP; Start 07/24/18 at 14:30 Acetaminophen/ Hydrocodone Bitart ([place] (5/325)) 1 tab Q6H PRN PO .MOD PAIN 4- 6; Start 07/24/18 at 14:30 Amlodipine Besylate (Norvasc) 5 mg DAILY PO ; Start 07/25/18 at 09:00 Calcium Acetate (Phoslo) 2,001 mg WITH MEALS PO Last administered on 07/24/18at 18:16; Admin Dose 2,001 MG; Start 07/24/18 at 17:55; Status Hold Labetalol HCl (Normodyne) 100 mg BID PO Last administered on 07/26/18at 00:29; Admin Dose 100 MG; Start 07/24/18 at 21:00 Nifedipine (Procardia Xl) 30 mg DAILY PO ; Start 07/25/18 at 09:00 Pantoprazole (Protonix Tab) 40 mg DAILY@06 PO Last administered on 07/26/18at 06:13; Admin Dose 40 MG; Start 07/25/18 at 06:00 Hydralazine HCl (Apresoline) 10 mg Q6H PRN IV SBP>160 Last administered on 07/24/18at 16:45; Admin Dose 10 MG; Start 07/24/18 at 16:00 Morphine Sulfate (morphine) 2 mg Q4H PRN IV SEVERE PAIN LEVEL 7-10 Last administered on 07/24/18at 17:34; Admin Dose 2 MG; Start 07/24/18 at 17:30 Epoetin Woodrow (Epogen (Esrd)) 10,000 units MONWEDFRI@1700 SC ; Start 07/28/18 at 17:00 ZAHEER SHARIF MD Jul 26, 2018 11:33
--- NOTE | 2018-07-26 13:13 | PN ---
Date/Time of Note Date/Time of Note DATE: 07/26/18 TIME: 13:10 Assessment/Plan VTE Prophylaxis Risk score (from Ns)>0 risk: 2 SCD applied (from Nsg): Yes Pharmacological prophylaxis: NA/contraindicated Pharm contraindication: anticoag not tolerated Lines/Catheters [facility] PERMACATH Urinary Cath still in place: No Assessment/Plan Hospital Course SUBJECTIVE: Complains of pain in the left thigh. OBJECTIVE: Physical Exam General: Adequately build 58 year-old male lying in bed in no apparent distress. HEENT: Normocephalic, atraumatic. Eyes: Icteric sclerae, conjunctivae clear. ENT: Nasal septum midline, oral mucosa moist. Neck supple, JVD noticed. Respiratory: Bilaterally clear breath sounds. No use of accessory muscles of respiration. No adventitious breath sounds. Cardiovascular: S1, S2 heard. Regular rate and rhythm. Abdomen: Soft, nontender, and nondistended. Bowel sounds positive in all 4 quadrants. Genitourinary: Deferred. Extremities: No cyanosis, no clubbing. B/L LE pedal pitting edema. Left thigh non pitting edema. Peripheral pulses palpable. Neurologic: Cranial nerves II through XII grossly intact. The patient is awake, alert, and oriented. Skin: Normal skin turgor. No skin rashes. 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 The patient was noticed to have underlying anemia and the patient was admitted to inpatient setting for further treatment and evaluation. 1. Normocytic anemia. -Etiology unclear. -S/P bone marrow biopsy on 07/26/2018. -Hematology following. -Gastroenterology following. -Stool for OBX1 negative. 2. End-stage renal disease on hemodialysis. -Being followed by nephrology. 3. Essential hypertension. -Continue antihypertensives. 4. Transaminitis with hyperbilirubinemia. -Etiology unclear. -Hepatitis panel negative. -CT scan showing hepatomegaly with marked heterogeneous enhancement suggesting congestive heart failure or other hepatic congestion. -Liver US showing cholelithiasis. -MRCP negative for any cholelithiasis/choledocholithiasis. 5. Diffuse enlargement and hypodense change of the left quadriceps muscles consistent with fluid collection. -Orthopedic Surgery has been consulted on 07/25/2018. 6. Bilateral pulmonary nodules with bilateral pleural effusions. -Pulmonary following. 7. Dyslipidemia. -Total cholesterol of 310 and LDL of 262. -Unable to start the patient on statins because of underlying hyperbilirubinemia and elevated alkaline phosphatase. -Low-cholesterol diet advised. -S/P dietary evaluation. 8. Fluids, electrolytes, and nutrition. -Renal, low-cholesterol diet. 9. DVT prophylaxis. -Bilateral SCDs. 10. Plan. -Continue HD as per nephrology. -Transfuse blood products as needed. -Await further recommendations from hematology/oncology and gastroenterology. -Await orthopedic surgery consult. The plan of care was explained to the patient's family, who was at the bedside. The patient was seen in collaboration with Dr. Joseph. Result Diagram: 07/26/18 0600 07/26/18 0600 Results 24hrs Laboratory Tests Test 07/26/18 06:00 07/26/18 12:09 White Blood Count 14.1 H Red Blood Count 3.08 L Hemoglobin 8.7 L Hematocrit 27.6 L Mean Corpuscular Volume 89.6 Mean Corpuscular Hemoglobin 28.2 L Mean Corpuscular Hemoglobin Concent 31.5 L Red Cell Distribution Width 20.5 H Platelet Count 506 H Mean Platelet Volume 10.0 Immature Granulocytes % 0.600 H Neutrophils % 84.0 H Lymphocytes % 6.3 L Monocytes % 7.4 Eosinophils % 1.3 Basophils % 0.4 Nucleated Red Blood Cells % 0.0 Immature Granulocytes # 0.090 H Neutrophils # 11.8 H Lymphocytes # 0.9 Monocytes # 1.0 H Eosinophils # 0.2 Basophils # 0.1 Nucleated Red Blood Cells # 0.0 Sodium Level 139 Potassium Level 4.4 Chloride Level 102 Carbon Dioxide Level 24 Anion Gap 13 Blood Urea Nitrogen 37 #H Creatinine 4.75 #H Est Glomerular Filtrat Rate mL/min 13 L Glucose Level 86 Calcium Level 8.2 L Phosphorus Level 7.2 #H Magnesium Level 2.2 Total Bilirubin 2.6 H Direct Bilirubin 1.90 H Indirect Bilirubin 0.7 Aspartate Amino Transf (AST/SGOT) 43 Alanine Aminotransferase (ALT/SGPT) 14 Alkaline Phosphatase 956 H Total Protein 7.7 Albumin 3.1 L Globulin 4.60 H Albumin/Globulin Ratio 0.67 Lab Scanned Report REFERENCE LAB Exam/Review of Systems Exam Vitals Vital Signs Date Temp Pulse Resp B/P (MAP) Pulse Ox O2 O2 Flow FiO2 Time Delivery Rate 07/26/18 98.4 78 16 128/68 99 07:44 (88) 07/26/18 Room Air 01:16 07/25/18 2.0 17:56 Intake and Output 07/25/18 07/25/18 07/26/18 1515:00 23:00 07:00 OutputOutput Total 3400 ml BalanceBalance -3400 ml Results Results 24hrs Laboratory Tests Test 07/26/18 06:00 07/26/18 12:09 White Blood Count 14.1 H Red Blood Count 3.08 L Hemoglobin 8.7 L Hematocrit 27.6 L Mean Corpuscular Volume 89.6 Mean Corpuscular Hemoglobin 28.2 L Mean Corpuscular Hemoglobin Concent 31.5 L Red Cell Distribution Width 20.5 H Platelet Count 506 H Mean Platelet Volume 10.0 Immature Granulocytes % 0.600 H Neutrophils % 84.0 H Lymphocytes % 6.3 L Monocytes % 7.4 Eosinophils % 1.3 Basophils % 0.4 Nucleated Red Blood Cells % 0.0 Immature Granulocytes # 0.090 H Neutrophils # 11.8 H Lymphocytes # 0.9 Monocytes # 1.0 H Eosinophils # 0.2 Basophils # 0.1 Nucleated Red Blood Cells # 0.0 Sodium Level 139 Potassium Level 4.4 Chloride Level 102 Carbon Dioxide Level 24 Anion Gap 13 Blood Urea Nitrogen 37 #H Creatinine 4.75 #H Est Glomerular Filtrat Rate mL/min 13 L Glucose Level 86 Calcium Level 8.2 L Phosphorus Level 7.2 #H Magnesium Level 2.2 Total Bilirubin 2.6 H Direct Bilirubin 1.90 H Indirect Bilirubin 0.7 Aspartate Amino Transf (AST/SGOT) 43 Alanine Aminotransferase (ALT/SGPT) 14 Alkaline Phosphatase 956 H Total Protein 7.7 Albumin 3.1 L Globulin 4.60 H Albumin/Globulin Ratio 0.67 Lab Scanned Report REFERENCE LAB Medications Medication Current Medications IV Flush (NS 3 ml) 3 ml PER PROTOCOL IV ; Start 07/24/18 at 14:30 Ondansetron HCl (Zofran Inj) 4 mg Q6H PRN IV NAUSEA/VOMITING Last administered on 07/25/18at 23:59; Admin Dose 4 MG; Start 07/24/18 at 14:30 Acetaminophen (Tylenol Tab) 650 mg Q6H PRN PO .PAIN 1-3 OR TEMP; Start 07/24/18 at 14:30 Acetaminophen/ Hydrocodone Bitart ([place] (5/325)) 1 tab Q6H PRN PO .MOD PAIN 4- 6; Start 07/24/18 at 14:30 Amlodipine Besylate (Norvasc) 5 mg DAILY PO ; Start 07/25/18 at 09:00 Labetalol HCl (Normodyne) 100 mg BID PO Last administered on 07/26/18at 00:29; Admin Dose 100 MG; Start 07/24/18 at 21:00 Nifedipine (Procardia Xl) 30 mg DAILY PO ; Start 07/25/18 at 09:00 Pantoprazole (Protonix Tab) 40 mg DAILY@06 PO Last administered on 07/26/18at 06:13; Admin Dose 40 MG; Start 07/25/18 at 06:00 Hydralazine HCl (Apresoline) 10 mg Q6H PRN IV SBP>160 Last administered on 07/24/18at 16:45; Admin Dose 10 MG; Start 07/24/18 at 16:00 Morphine Sulfate (morphine) 2 mg Q4H PRN IV SEVERE PAIN LEVEL 7-10 Last administered on 07/24/18at 17:34; Admin Dose 2 MG; Start 07/24/18 at 17:30 BERTHA LAUREANO NP Jul 26, 2018 13:13
[2018-07-26 15:13] VITALS: BP 144/69; PULSE 82; RESP 16
--- NOTE | 2018-07-26 17:00 | PN ---
Date/Time of Note Date/Time of Note DATE: 07/26/18 TIME: 16:30 Assessment/Plan VTE Prophylaxis Risk score (from Ns)>0 risk: 2 SCD applied (from Ns): Yes Pharmacological prophylaxis: NA/contraindicated Pharm contraindication: liver dx Lines/Catheters IV [facility] PERMACATH Urinary Cath still in place: No Assessment/Plan Assessment/Plan Assessment: Diarrhea Leukocytosis Direct hyperbilirubinemia Elevated alkaline phosphatase Elevated lactate dehydrogenase Liver cirrhosis due to congestive heart failure - Small amount of ascites on CT/anasarca Lateral pulmonary nodules Left quadriceps abscess versus malignancy 60lb weight loss over 6 months -EGD/colonoscopy May 2018 -normal exam Normocytic anemia Thrombocytosis ESRD on HD HTN Chronic n/v Tumor markers are negative Plan: Stool studies MRCP- negative Alk phos fractionation Patient seen in collaboration with Dr. Del Rio Subjective: Patient is feeling fair. He denies abdominal pain, nausea or vomiting. Patient is complaining of severe chronic diarrhea for the past 6 months, started after antibiotic use. Patient reportedly had EGD/colonoscopy done in May 2018 with no significant findings. Will check the stool studies. Results of CT and MRCP discussed with the patient and the family at the bedside. Awaiting results of bone marrow biopsy. Patient is being followed by hem atologist, keno clerk and orthopedic surgeon. Continue observation. PHYSICAL EXAMINATION: GENERAL: Well developed, well nourished, alert & oriented x 3, in no acute distress SKIN: No lesions, no stigmata chronic liver disease, no evidence of bleeding diathesis LYMPHATIC: No palpable lymphadenopathy. HEAD: Normocephalic, atraumatic, no tenderness. EYES: Pupils equal reactive to light and accommodation, full extraocular movements, sclera-icteric, no discharge. EARS/NOSE AND THROAT: Ears normal, nose normal, oropharynx normal, oral membranes well hydrated without lesions. NECK: Supple, no masses, thyroid normal, JVP within normal limits, carotids normal without bruits. CHEST: Inspection within normal limits. CARDIOVASCULAR: Heart: Regular rate and rhythm, no murmurs, gallops or rubs. Peripheral pulses present within normal limits, no cyanosis, clubbing or edemas. No pulsatile abdominal mass RESPIRATORY: Lungs clear to auscultation and percussion, no wheezing, no rubs GASTROINTESTINAL AND LIVER: Abdomen: Soft, non tenderness, non-distended, no hernias, no masses, no organomegaly, no ascites, no guarding, no rebound tenderness, normoactive bowel sounds. Rectal: Deferred. GENITOURINARY: [Male genitalia within normal limits. EXTREMITIES: No cyanosis, clubbing or edema. Result Diagram: 07/26/18 0600 07/26/18 0600 Results 24hrs Laboratory Tests Test 07/26/18 06:00 07/26/18 12:09 White Blood Count 14.1 H Red Blood Count 3.08 L Hemoglobin 8.7 L Hematocrit 27.6 L Mean Corpuscular Volume 89.6 Mean Corpuscular Hemoglobin 28.2 L Mean Corpuscular Hemoglobin Concent 31.5 L Red Cell Distribution Width 20.5 H Platelet Count 506 H Mean Platelet Volume 10.0 Immature Granulocytes % 0.600 H Neutrophils % 84.0 H Lymphocytes % 6.3 L Monocytes % 7.4 Eosinophils % 1.3 Basophils % 0.4 Nucleated Red Blood Cells % 0.0 Immature Granulocytes # 0.090 H Neutrophils # 11.8 H Lymphocytes # 0.9 Monocytes # 1.0 H Eosinophils # 0.2 Basophils # 0.1 Nucleated Red Blood Cells # 0.0 Sodium Level 139 Potassium Level 4.4 Chloride Level 102 Carbon Dioxide Level 24 Anion Gap 13 Blood Urea Nitrogen 37 #H Creatinine 4.75 #H Est Glomerular Filtrat Rate mL/min 13 L Glucose Level 86 Calcium Level 8.2 L Phosphorus Level 7.2 #H Magnesium Level 2.2 Total Bilirubin 2.6 H Direct Bilirubin 1.90 H Indirect Bilirubin 0.7 Aspartate Amino Transf (AST/SGOT) 43 Alanine Aminotransferase (ALT/SGPT) 14 Alkaline Phosphatase 956 H Total Protein 7.7 Albumin 3.1 L Globulin 4.60 H Albumin/Globulin Ratio 0.67 Lab Scanned Report REFERENCE LAB Exam/Review of Systems Exam Vitals Vital Signs Date Temp Pulse Resp B/P (MAP) Pulse Ox O2 O2 Flow FiO2 Time Delivery Rate 07/26/18 97.5 82 16 144/69 99 15:13 (94) 07/26/18 Room Air 01:16 07/25/18 2.0 17:56 Intake and Output 07/25/18 07/25/18 07/26/18 1414:59 22:59 06:59 OutputOutput Total 3400 ml BalanceBalance -3400 ml Results Results 24hrs Laboratory Tests Test 07/26/18 06:00 07/26/18 12:09 White Blood Count 14.1 H Red Blood Count 3.08 L Hemoglobin 8.7 L Hematocrit 27.6 L Mean Corpuscular Volume 89.6 Mean Corpuscular Hemoglobin 28.2 L Mean Corpuscular Hemoglobin Concent 31.5 L Red Cell Distribution Width 20.5 H Platelet Count 506 H Mean Platelet Volume 10.0 Immature Granulocytes % 0.600 H Neutrophils % 84.0 H Lymphocytes % 6.3 L Monocytes % 7.4 Eosinophils % 1.3 Basophils % 0.4 Nucleated Red Blood Cells % 0.0 Immature Granulocytes # 0.090 H Neutrophils # 11.8 H Lymphocytes # 0.9 Monocytes # 1.0 H Eosinophils # 0.2 Basophils # 0.1 Nucleated Red Blood Cells # 0.0 Sodium Level 139 Potassium Level 4.4 Chloride Level 102 Carbon Dioxide Level 24 Anion Gap 13 Blood Urea Nitrogen 37 #H Creatinine 4.75 #H Est Glomerular Filtrat Rate mL/min 13 L Glucose Level 86 Calcium Level 8.2 L Phosphorus Level 7.2 #H Magnesium Level 2.2 Total Bilirubin 2.6 H Direct Bilirubin 1.90 H Indirect Bilirubin 0.7 Aspartate Amino Transf (AST/SGOT) 43 Alanine Aminotransferase (ALT/SGPT) 14 Alkaline Phosphatase 956 H Total Protein 7.7 Albumin 3.1 L Globulin 4.60 H Albumin/Globulin Ratio 0.67 Lab Scanned Report REFERENCE LAB Medications Medication Current Medications IV Flush (NS 3 ml) 3 ml PER PROTOCOL IV ; Start 07/24/18 at 14:30 Ondansetron HCl (Zofran Inj) 4 mg Q6H PRN IV NAUSEA/VOMITING Last administered on 07/25/18at 23:59; Admin Dose 4 MG; Start 07/24/18 at 14:30 Acetaminophen (Tylenol Tab) 650 mg Q6H PRN PO .PAIN 1-3 OR TEMP; Start 07/24/18 at 14:30 Acetaminophen/ Hydrocodone Bitart ([place] (5/325)) 1 tab Q6H PRN PO .MOD PAIN 4- 6; Start 07/24/18 at 14:30 Amlodipine Besylate (Norvasc) 5 mg DAILY PO ; Start 07/25/18 at 09:00 Labetalol HCl (Normodyne) 100 mg BID PO Last administered on 07/26/18 00:29; Admin Dose 100 MG; Start 07/24/18 at 21:00 Nifedipine (Procardia Xl) 30 mg DAILY PO ; Start 07/25/18 at 09:00 Pantoprazole (Protonix Tab) 40 mg DAILY@06 PO Last administered on 07/26/18at 06:13; Admin Dose 40 MG; Start 07/25/18 at 06:00 Hydralazine HCl (Apresoline) 10 mg Q6H PRN IV SBP>160 Last administered on 07/24/18at 16:45; Admin Dose 10 MG; Start 07/24/18 at 16:00 Morphine Sulfate (morphine) 2 mg Q4H PRN IV SEVERE PAIN LEVEL 7-10 Last administered on 07/24/18at 17:34; Admin Dose 2 MG; Start 07/24/18 at 17:30 KRIS ROSADO NP Jul 26, 2018 16:40
--- NOTE | 2018-07-26 17:03 | RADRPT ---
Echocardiogram Report Patient Name: Mt MONTOYAtient ID: [id number] : 1960 (58y 4m)Study Date: 07/26/2018 7:19:52 AM Gender: Aayush #: [id number] Tech: Mj Franklin [facility] Location: [address] Ref.Physician: BERTHA LAUREANO Height(Cm): BSA: Weight(Kg): Quality: AdequateAccount #: Procedures: Echocardiographic Report: Transthoracic echocardiogram with complete 2D, M-Mode, and doppler examination. Indications: Evaluate Left Ventricular function. Measurements: 2D/M Mode Doppler Measurement Value Normal Range Measurement Value Normal Range LVIDd 2D 3.9 [ 4.2 - 5.8 ] cm AV Peak Se 1.3 [ 100.0 - 170.0 ] cm/se c LVIDs 2D 2.6 [ 2.5 - 4.0 ] cm AV Peak PG 6.0 [ 2.0 - 9.0 ] mmHg LVPWd 2D 1.0 [ 0.6 - 1.0 ] cm LVOT Peak Se 1.1 [ 70.0 - 110.0 ] cm/sec IVSd 2D 0.9 [ 0.6 - 1.0 ] cm LVOT Peak PG 5.0 [ 2.0 - 6.0 ] mmHg AoR Diam 2D 2.6 [ 2.6 - 3.4 ] cm MV E Peak Se 1.3 [ 60.0 - 130.0 ] cm/sec EDV 2D 66.3 [ 62.0 - 150.0 ] ml MV A Peak Se 0.7 [ 100.0 - 120.0 ] cm/se c ESV 2D 24.8 [ 21.0 - 61.0 ] ml MV E/A 1.8 [ 0.8 - 1.5 ] ratio EF 2D 62.6 [ 52.0 - 72.0 ] percent MV PHT 59.0 [ 20.0 - 100.0 ] msec LA Dimen 2D 3.3 [ 3.0 - 4.0 ] cm MV Decel Time 201 [ 104 - 258 ] msec MV Decel Mccormick 6 Lat E` Se 0.1 [ 10.0 - 15.0 ] cm/sec Lateral E/E` 16.6 [ 1.0 - 2.0 ] ratio Med E` Se 0.1 cm/sec MV E/A 1.8 [ 0.8 - 1.5 ] ratio MVA PHT 3.7 [ 2.0 - 4.0 ] cm2 TR Peak Se 3.2 [ 100.0 - 280.0 ] cm/se c TR Peak PG 40.0 mmHg RVSP 40.0 [ 10.0 - 36.0 ] mmHg RA Pressure 8.0 mmHg Findings: Left Ventricle: Normal left ventricular systolic function. Normal left ventricular cavity size. Normal left ventricular wall thickness. Ejection fraction is visually estimated at 55-60 %. Tissue Doppler/Mitral Doppler indices are within normal limits. Right Ventricle: Normal right ventricular size. Normal right ventricular systolic function. Left Atrium: The left atrium is normal in size. Right Atrium: The right atrium is normal in size. Atrial Septum: Normal atrial septum. Mitral Valve: Normal appearance of the mitral valve. Mild mitral valve regurgitation. Aortic Valve: Aortic sclerosis without significant stenosis. Aortic cusps appear mildly calcified. Trace aortic valve regurgitation. Tricuspid Valve: Normal appearance of the tricuspid valve. Estimated peak PA systolic pressure 48 mmHg. There is moderate tricuspid regurgitation. Pulmonic Valve: Normal pulmonic valve appearance. Pericardium: Pleural effusion seen. Aorta: Normal aortic root. IVC: Dilated IVC with respiratory collapse consistent with elevated right atrial pressure. Conclusions: Normal left ventricular systolic function. Normal left ventricular cavity size. Normal left ventricular wall thickness. Ejection fraction is visually estimated at 55-60 %. Tissue Doppler/Mitral Doppler indices are within normal limits. Normal appearance of the mitral valve. Mild mitral valve regurgitation. n. Aortic sclerosis without significant stenosis. Aortic cusps appear mildly calcified. Trace aortic valve regurgitation. Normal appearance of the tricuspid valve. Estimated peak PA systolic pressure 48 mmHg. There is moderate tricuspid regurgitation. Electronically Signed By: Kory Echols 2018-07-26 17:02:56 PDT
[2018-07-26 19:55] VITALS: BP 150/80; PULSE 74; RESP 18
--- NOTE | 2018-07-27 01:36 | CONS ---
Assessment/Plan Assessment/Plan Assessment/Plan (Daily) - #Anemia- Hgb 8.7 today -Although the LDH is high and haptogobin is low, the normal indirect bili, negative vahid and and unremarkable smear do not support hemolysis. Furthermore the elevated LDH and low haptoglobin may be due to the liver inflammation -Vitamin b12 and folate are normal -iron studies are consistent with anemia of chronic inflammation -continue procrit 10,000 units three times weekly -pt had bone marrow bx done, will follow up #CHF -pt has BNP > 10,000 -continue Beta Blockade -consider Cardiology consult #ESRD -continue HD Patient seen in collaboration wit Dr Nichols Consultation Date/Type/Reason Admit Date/Time Jul 26, 2018 at 08:01 Initial Consult Date 07/25/18 Type of Consult oncology Reason for Consultation ANEMIA Requesting Provider: BERTHA LAUREANO NP Date/Time of Note DATE: 07/27/18 TIME: 01:35 24 HR Interval Summary Free Text/Dictation Feels better no new events reported overnight by staff stable Detailed Summary Eyes: no complaints ENT: no complaints Respiratory: no complaints Cardiovascular: no complaints Gastrointestinal: no complaints Genitourinary: no complaints Musculoskeletal: no complaints Skin: no complaints Neurologic: no complaints Endocrine: no complaints Exam/Review of Systems Exam Vitals Vital Signs Date Temp Pulse Resp B/P (MAP) Pulse Ox O2 O2 Flow FiO2 Time Delivery Rate 07/26/18 97.6 74 18 150/80 99 19:55 (103) 07/26/18 Room Air 01:16 07/25/18 2.0 17:56 Intake and Output 07/26/18 07/26/18 07/27/18 1515:00 23:00 07:00 IntakeIntake Total 1280 ml 440 ml BalanceBalance 1280 ml 440 ml Constitutional: alert, oriented, well developed Psych: nl mood/affect Head: normocephalic Eyes: EOMI, nl lids, nl sclera ENMT: nl external ears & nose Neck: non-tender Respiratory: clear to auscultation Cardiovascular: nl pulses, other (s1s2) Gastrointestinal: soft, non-tender Musculoskeletal: nl extremities to inspection, muscle weakness Extremities: normal pulses Neurological: nl mental status, nl speech Lymph: nontender Results Result Diagram: 07/26/18 0600 07/26/18 0600 Results 24hrs Laboratory Tests Test 07/26/18 06:00 07/26/18 12:09 White Blood Count 14.1 H Red Blood Count 3.08 L Hemoglobin 8.7 L Hematocrit 27.6 L Mean Corpuscular Volume 89.6 Mean Corpuscular Hemoglobin 28.2 L Mean Corpuscular Hemoglobin Concent 31.5 L Red Cell Distribution Width 20.5 H Platelet Count 506 H Mean Platelet Volume 10.0 Immature Granulocytes % 0.600 H Neutrophils % 84.0 H Lymphocytes % 6.3 L Monocytes % 7.4 Eosinophils % 1.3 Basophils % 0.4 Nucleated Red Blood Cells % 0.0 Immature Granulocytes # 0.090 H Neutrophils # 11.8 H Lymphocytes # 0.9 Monocytes # 1.0 H Eosinophils # 0.2 Basophils # 0.1 Nucleated Red Blood Cells # 0.0 Sodium Level 139 Potassium Level 4.4 Chloride Level 102 Carbon Dioxide Level 24 Anion Gap 13 Blood Urea Nitrogen 37 #H Creatinine 4.75 #H Est Glomerular Filtrat Rate mL/min 13 L Glucose Level 86 Calcium Level 8.2 L Phosphorus Level 7.2 #H Magnesium Level 2.2 Total Bilirubin 2.6 H Direct Bilirubin 1.90 H Indirect Bilirubin 0.7 Aspartate Amino Transf (AST/SGOT) 43 Alanine Aminotransferase (ALT/SGPT) 14 Alkaline Phosphatase 956 H Total Protein 7.7 Albumin 3.1 L Globulin 4.60 H Albumin/Globulin Ratio 0.67 Lab Scanned Report REFERENCE LAB Medications Medication Current Medications IV Flush (NS 3 ml) 3 ml PER PROTOCOL IV ; Start 07/24/18 at 14:30 Ondansetron HCl (Zofran Inj) 4 mg Q6H PRN IV NAUSEA/VOMITING Last administered on 07/25/18at 23:59; Admin Dose 4 MG; Start 07/24/18 at 14:30 Acetaminophen (Tylenol Tab) 650 mg Q6H PRN PO .PAIN 1-3 OR TEMP; Start 07/24/18 at 14:30 Acetaminophen/ Hydrocodone Bitart ([place] (5/325)) 1 tab Q6H PRN PO .MOD PAIN 4- 6; Start 07/24/18 at 14:30 Amlodipine Besylate (Norvasc) 5 mg DAILY PO ; Start 07/25/18 at 09:00 Labetalol HCl (Normodyne) 100 mg BID PO Last administered on 3/23/19at 00:29; Admin Dose 100 MG; Start 07/24/18 at 21:00 Nifedipine (Procardia Xl) 30 mg DAILY PO ; Start 07/25/18 at 09:00 Pantoprazole (Protonix Tab) 40 mg DAILY@06 PO Last administered on 07/26/18at 06:13; Admin Dose 40 MG; Start 07/25/18 at 06:00 Hydralazine HCl (Apresoline) 10 mg Q6H PRN IV SBP>160 Last administered on 07/24/18at 16:45; Admin Dose 10 MG; Start 07/24/18 at 16:00 Morphine Sulfate (morphine) 2 mg Q4H PRN IV SEVERE PAIN LEVEL 7-10 Last administered on 07/24/18at 17:34; Admin Dose 2 MG; Start 07/24/18 at 17:30 DARLENE DE LEÓN Jul 27, 2018 01:35
[2018-07-27 02:01] VITALS: BP 157/86; PULSE 76; RESP 20
[2018-07-27] MEDS: PANTOPRAZOLE (EC) 40 MG TAB PO SCH (05:34)
--- NOTE | 2018-07-27 07:56 | PN ---
Date/Time of Note Date/Time of Note DATE: 07/27/18 TIME: 07:56 Assessment/Plan VTE Prophylaxis Risk score (from Ns)>0 risk: 2 SCD applied (from Ns): No SCD contraindicated: other Pharmacological prophylaxis: NA/contraindicated Pharm contraindication: anticoag not tolerated Lines/Catheters [facility]from [facility] PERMACATH Urinary Cath still in place: No Assessment/Plan Hospital Course SUBJECTIVE: Complains of pain in the left thigh. Complains of diarrhea. OBJECTIVE: Physical Exam General: Adequately build 58 year-old male lying in bed in no apparent distress. HEENT: Normocephalic, atraumatic. Eyes: Icteric sclerae, conjunctivae clear. ENT: Nasal septum midline, oral mucosa moist. Neck supple, JVD noticed. Respiratory: Bilaterally clear breath sounds. No use of accessory muscles of respiration. No adventitious breath sounds. Cardiovascular: S1, S2 heard. Regular rate and rhythm. Abdomen: Soft, nontender, and nondistended. Bowel sounds positive in all 4 quadrants. Genitourinary: Deferred. Extremities: No cyanosis, no clubbing. B/L LE pedal pitting edema. Left thigh non pitting edema. Peripheral pulses palpable. Neurologic: Cranial nerves II through XII grossly intact. The patient is awake, alert, and oriented. Skin: Normal skin turgor. No skin rashes. Labs & Vitals per chart ASSESSMENT & PLAN 58-year-old male with comorbidities including end-stage renal disease on hemodialysis Saturday/Saturday/Saturday, anemia, and hypertension, who came to the emergency room for further evaluation who was referred by his construction consultant for underlying anemia. The patient was noticed to have underlying anemia and the patient was admitted to inpatient setting for further treatment and evaluation. 1. Normocytic anemia. -Etiology unclear. -S/P bone marrow biopsy on 07/26/2018. -Hematology following. -Gastroenterology following. -Stool for OBX1 negative. 2. End-stage renal disease on hemodialysis. -Being followed by nephrology. 3. Essential hypertension. -Continue antihypertensives. 4. Transaminitis with hyperbilirubinemia. -Etiology unclear. -Hepatitis panel negative. -CT scan showing hepatomegaly with marked heterogeneous enhancement suggesting congestive heart failure or other hepatic congestion. -Liver US showing cholelithiasis. -MRCP negative for any cholelithiasis/choledocholithiasis. 5. Diffuse enlargement and hypodense change of the left quadriceps muscles consistent with fluid collection. -Orthopedic Surgery has been consulted on 07/25/2018. 6. Bilateral pulmonary nodules with bilateral pleural effusions. -Pulmonary following. 7. Dyslipidemia. -Total cholesterol of 310 and LDL of 262. -Unable to start the patient on statins because of underlying hyperbilirubinemia and elevated alkaline phosphatase. -Low-cholesterol diet advised. -S/P dietary evaluation. 8. Fluids, electrolytes, and nutrition. -Renal, low-cholesterol diet. 9. DVT prophylaxis. -Bilateral SCDs. 10. Plan. -Continue HD as per nephrology. -Transfuse blood products as needed. -Await further recommendations from hematology/oncology and gastroenterology. -Await orthopedic surgery consult. The plan of care was explained to the patient's family, who was at the bedside. The patient was seen in collaboration with Dr. Joseph. Result Diagram: 07/27/18 0513 07/27/18 0513 Results 24hrs Laboratory Tests Test 07/26/18 12:09 07/27/18 05:13 Lab Scanned Report REFERENCE LAB White Blood Count 11.3 H Red Blood Count 3.02 L Hemoglobin 8.6 L Hematocrit 27.4 L Mean Corpuscular Volume 90.7 Mean Corpuscular Hemoglobin 28.5 L Mean Corpuscular Hemoglobin Concent 31.4 L Red Cell Distribution Width 19.8 H Platelet Count 460 H Mean Platelet Volume 9.6 Immature Granulocytes % 0.700 H Neutrophils % 77.9 H Lymphocytes % 9.2 L Monocytes % 8.4 Eosinophils % 3.3 Basophils % 0.5 Nucleated Red Blood Cells % 0.0 Immature Granulocytes # 0.080 H Neutrophils # 8.8 H Lymphocytes # 1.0 Monocytes # 1.0 H Eosinophils # 0.4 Basophils # 0.1 Nucleated Red Blood Cells # 0.0 Sodium Level 136 Potassium Level 5.2 H Chloride Level 101 Carbon Dioxide Level 21 Anion Gap 14 H Blood Urea Nitrogen 49 #H Creatinine 5.75 H Est Glomerular Filtrat Rate mL/min 10 L Glucose Level 84 Calcium Level 8.4 Phosphorus Level 8.9 H Magnesium Level 2.2 Total Bilirubin 2.4 H Direct Bilirubin 1.80 H Indirect Bilirubin 0.6 Aspartate Amino Transf (AST/SGOT) 43 Alanine Aminotransferase (ALT/SGPT) 22 Alkaline Phosphatase 1013 H Total Protein 7.5 Albumin 3.1 L Globulin 4.40 H Albumin/Globulin Ratio 0.70 Exam/Review of Systems Exam Vitals Vital Signs Date Temp Pulse Resp B/P (MAP) Pulse Ox O2 O2 Flow FiO2 Time Delivery Rate 07/27/18 98.6 76 20 157/86 99 02:01 (109) 07/26/18 Room Air 01:16 07/25/18 2.0 17:56 Intake and Output 07/26/18 07/26/18 07/27/18 1515:00 23:00 07:00 IntakeIntake Total 1280 ml 440 ml BalanceBalance 1280 ml 440 ml Results Results 24hrs Laboratory Tests Test 07/26/18 12:09 07/27/18 05:13 Lab Scanned Report REFERENCE LAB White Blood Count 11.3 H Red Blood Count 3.02 L Hemoglobin 8.6 L Hematocrit 27.4 L Mean Corpuscular Volume 90.7 Mean Corpuscular Hemoglobin 28.5 L Mean Corpuscular Hemoglobin Concent 31.4 L Red Cell Distribution Width 19.8 H Platelet Count 460 H Mean Platelet Volume 9.6 Immature Granulocytes % 0.700 H Neutrophils % 77.9 H Lymphocytes % 9.2 L Monocytes % 8.4 Eosinophils % 3.3 Basophils % 0.5 Nucleated Red Blood Cells % 0.0 Immature Granulocytes # 0.080 H Neutrophils # 8.8 H Lymphocytes # 1.0 Monocytes # 1.0 H Eosinophils # 0.4 Basophils # 0.1 Nucleated Red Blood Cells # 0.0 Sodium Level 136 Potassium Level 5.2 H Chloride Level 101 Carbon Dioxide Level 21 Anion Gap 14 H Blood Urea Nitrogen 49 #H Creatinine 5.75 H Est Glomerular Filtrat Rate mL/min 10 L Glucose Level 84 Calcium Level 8.4 Phosphorus Level 8.9 H Magnesium Level 2.2 Total Bilirubin 2.4 H Direct Bilirubin 1.80 H Indirect Bilirubin 0.6 Aspartate Amino Transf (AST/SGOT) 43 Alanine Aminotransferase (ALT/SGPT) 22 Alkaline Phosphatase 1013 H Total Protein 7.5 Albumin 3.1 L Globulin 4.40 H Albumin/Globulin Ratio 0.70 Medications Medication Current Medications IV Flush (NS 3 ml) 3 ml PER PROTOCOL IV ; Start 07/24/18 at 14:30 Ondansetron HCl (Zofran Inj) 4 mg Q6H PRN IV NAUSEA/VOMITING Last administered on 07/25/18at 23:59; Admin Dose 4 MG; Start 07/24/18 at 14:30 Acetaminophen (Tylenol Tab) 650 mg Q6H PRN PO .PAIN 1-3 OR TEMP; Start 07/24/18 at 14:30 Acetaminophen/ Hydrocodone Bitart ([place] (5/325)) 1 tab Q6H PRN PO .MOD PAIN 4- 6; Start 07/24/18 at 14:30 Amlodipine Besylate (Norvasc) 5 mg DAILY PO ; Start 07/25/18 at 09:00 Labetalol HCl (Normodyne) 100 mg BID PO Last administered on 07/26/18at 00:29; Admin Dose 100 MG; Start 07/24/18 at 21:00 Nifedipine (Procardia Xl) 30 mg DAILY PO ; Start 07/25/18 at 09:00 Pantoprazole (Protonix Tab) 40 mg DAILY@06 PO Last administered on 07/27/18 05:34; Admin Dose 40 MG; Start 07/25/18 at 06:00 Hydralazine HCl (Apresoline) 10 mg Q6H PRN IV SBP>160 Last administered on 07/24/18at 16:45; Admin Dose 10 MG; Start 07/24/18 at 16:00 Morphine Sulfate (morphine) 2 mg Q4H PRN IV SEVERE PAIN LEVEL 7-10 Last administered on 07/24/18at 17:34; Admin Dose 2 MG; Start 07/24/18 at 17:30 BERTHA LAUREANO NP Jul 27, 2018 07:56
[2018-07-27 07:59] VITALS: BP 191/90; PULSE 78; RESP 18
[2018-07-27] MEDS: AMLODIPINE 5 MG TAB PO SCH (08:36)
[2018-07-27] MEDS: LABETALOL 100 MG TAB PO SCH ×2 (08:36→21:00)
[2018-07-27] MEDS ORDERED: LOPERAMIDE 2 MG CAP PO ONE (10:30)
[2018-07-27] MEDS ORDERED: LOPERAMIDE 2 MG CAP PO PRN (10:30)
--- NOTE | 2018-07-27 10:37 | PN ---
Date/Time of Note Date/Time of Note DATE: 07/27/18 TIME: 10:32 Assessment/Plan VTE Prophylaxis Risk score (from Ns)>0 risk: 2 SCD applied (from Ns): No SCD contraindicated: low risk/ambulating Pharmacological prophylaxis: NA/contraindicated Pharm contraindication: liver dx Lines/Catheters [facility] PERMACATH Urinary Cath still in place: No Assessment/Plan Assessment/Plan Assessment: Diarrhea chronic x 6 months Leukocytosis Direct hyperbilirubinemia Elevated alkaline phosphatase Elevated lactate dehydrogenase Liver cirrhosis due to congestive heart failure - Small amount of ascites on CT/anasarca Lateral pulmonary nodules Left quadriceps abscess versus malignancy 60lb weight loss over 6 months -EGD/colonoscopy May 2018 -normal exam Normocytic anemia Thrombocytosis ESRD on HD HTN Chronic n/v Tumor markers are negative Plan: Imodium 4mg x 1 and 2 mg PRN Stool studies - pending MRCP- negative Alk phos fractionation - pending Patient seen in collaboration with Dr. Del Rio Subjective: Patient is feeling well. He denies abdominal pain, nausea or vomiting. Continue having diarrhea. Stool studies are pending. Will order 1 dose of Imodium and as needed. Patient reportedly had EGD/colonoscopy done in May 2018 with no significant findings. Awaiting results of bone marrow biopsy. Patient is being followed by database administrator, city editor and orthopedic surgeon. Continue observation. PHYSICAL EXAMINATION: GENERAL: Well developed, well nourished, alert & oriented x 3, in no acute distress SKIN: No lesions, no stigmata chronic liver disease, no evidence of bleeding diathesis LYMPHATIC: No palpable lymphadenopathy. HEAD: Normocephalic, atraumatic, no tenderness. EYES: Pupils equal reactive to light and accommodation, full extraocular movements, sclera-icteric, no discharge. EARS/NOSE AND THROAT: Ears normal, nose normal, oropharynx normal, oral membranes well hydrated without lesions. NECK: Supple, no masses, thyroid normal, JVP within normal limits, carotids normal without bruits. CHEST: Inspection within normal limits. CARDIOVASCULAR: Heart: Regular rate and rhythm, no murmurs, gallops or rubs. Peripheral pulses present within normal limits, no cyanosis, clubbing or edemas. No pulsatile abdominal mass RESPIRATORY: Lungs clear to auscultation and percussion, no wheezing, no rubs GASTROINTESTINAL AND LIVER: Abdomen: Soft, non tenderness, non-distended, no hernias, no masses, no organomegaly, no ascites, no guarding, no rebound tenderness, normoactive bowel sounds. Rectal: Deferred. GENITOURINARY: [Male genitalia within normal limits. EXTREMITIES: No cyanosis, clubbing or edema. Result Diagram: 07/27/18 0513 07/27/18 0513 Results 24hrs Laboratory Tests Test 07/26/18 12:09 07/27/18 05:13 Lab Scanned Report REFERENCE LAB White Blood Count 11.3 H Red Blood Count 3.02 L Hemoglobin 8.6 L Hematocrit 27.4 L Mean Corpuscular Volume 90.7 Mean Corpuscular Hemoglobin 28.5 L Mean Corpuscular Hemoglobin Concent 31.4 L Red Cell Distribution Width 19.8 H Platelet Count 460 H Mean Platelet Volume 9.6 Immature Granulocytes % 0.700 H Neutrophils % 77.9 H Lymphocytes % 9.2 L Monocytes % 8.4 Eosinophils % 3.3 Basophils % 0.5 Nucleated Red Blood Cells % 0.0 Immature Granulocytes # 0.080 H Neutrophils # 8.8 H Lymphocytes # 1.0 Monocytes # 1.0 H Eosinophils # 0.4 Basophils # 0.1 Nucleated Red Blood Cells # 0.0 Sodium Level 136 Potassium Level 5.2 H Chloride Level 101 Carbon Dioxide Level 21 Anion Gap 14 H Blood Urea Nitrogen 49 #H Creatinine 5.75 H Est Glomerular Filtrat Rate mL/min 10 L Glucose Level 84 Calcium Level 8.4 Phosphorus Level 8.9 H Magnesium Level 2.2 Total Bilirubin 2.4 H Direct Bilirubin 1.80 H Indirect Bilirubin 0.6 Aspartate Amino Transf (AST/SGOT) 43 Alanine Aminotransferase (ALT/SGPT) 22 Alkaline Phosphatase 1013 H Total Protein 7.5 Albumin 3.1 L Globulin 4.40 H Albumin/Globulin Ratio 0.70 CC: ROHAN DICKEY MD ; Exam/Review of Systems Exam Vitals Vital Signs Date Temp Pulse Resp B/P (MAP) Pulse Ox O2 O2 Flow FiO2 Time Delivery Rate 07/27/18 97.9 78 18 191/90 95 Room Air 07:59 (123) 07/25/18 2.0 17:56 Intake and Output 07/26/18 07/26/18 07/27/18 1515:00 23:00 07:00 IntakeIntake Total 1280 ml 440 ml BalanceBalance 1280 ml 440 ml Results Results 24hrs Laboratory Tests Test 07/26/18 12:09 07/27/18 05:13 Lab Scanned Report REFERENCE LAB White Blood Count 11.3 H Red Blood Count 3.02 L Hemoglobin 8.6 L Hematocrit 27.4 L Mean Corpuscular Volume 90.7 Mean Corpuscular Hemoglobin 28.5 L Mean Corpuscular Hemoglobin Concent 31.4 L Red Cell Distribution Width 19.8 H Platelet Count 460 H Mean Platelet Volume 9.6 Immature Granulocytes % 0.700 H Neutrophils % 77.9 H Lymphocytes % 9.2 L Monocytes % 8.4 Eosinophils % 3.3 Basophils % 0.5 Nucleated Red Blood Cells % 0.0 Immature Granulocytes # 0.080 H Neutrophils # 8.8 H Lymphocytes # 1.0 Monocytes # 1.0 H Eosinophils # 0.4 Basophils # 0.1 Nucleated Red Blood Cells # 0.0 Sodium Level 136 Potassium Level 5.2 H Chloride Level 101 Carbon Dioxide Level 21 Anion Gap 14 H Blood Urea Nitrogen 49 #H Creatinine 5.75 H Est Glomerular Filtrat Rate mL/min 10 L Glucose Level 84 Calcium Level 8.4 Phosphorus Level 8.9 H Magnesium Level 2.2 Total Bilirubin 2.4 H Direct Bilirubin 1.80 H Indirect Bilirubin 0.6 Aspartate Amino Transf (AST/SGOT) 43 Alanine Aminotransferase (ALT/SGPT) 22 Alkaline Phosphatase 1013 H Total Protein 7.5 Albumin 3.1 L Globulin 4.40 H Albumin/Globulin Ratio 0.70 Medications Medication Current Medications IV Flush (NS 3 ml) 3 ml PER PROTOCOL IV ; Start 07/24/18 at 14:30 Ondansetron HCl (Zofran Inj) 4 mg Q6H PRN IV NAUSEA/VOMITING Last administered on 07/25/18at 23:59; Admin Dose 4 MG; Start 07/24/18 at 14:30 Acetaminophen (Tylenol Tab) 650 mg Q6H PRN PO .PAIN 1-3 OR TEMP; Start 07/24/18 at 14:30 Acetaminophen/ Hydrocodone Bitart ([place] (5/325)) 1 tab Q6H PRN PO .MOD PAIN 4- 6; Start 07/24/18 at 14:30 Amlodipine Besylate (Norvasc) 5 mg DAILY PO Last administered on 07/27/18at 08:36; Admin Dose 5 MG; Start 07/25/18 at 09:00 Labetalol HCl (Normodyne) 100 mg BID PO Last administered on 07/27/18at 08:36; Admin Dose 100 MG; Start 07/24/18 at 21:00 Nifedipine (Procardia Xl) 30 mg DAILY PO ; Start 07/25/18 at 09:00 Pantoprazole (Protonix Tab) 40 mg DAILY@06 PO Last administered on 07/27/18at 05:34; Admin Dose 40 MG; Start 07/25/18 at 06:00 Hydralazine HCl (Apresoline) 10 mg Q6H PRN IV SBP>160 Last administered on 07/24/18at 16:45; Admin Dose 10 MG; Start 07/24/18 at 16:00 Morphine Sulfate (morphine) 2 mg Q4H PRN IV SEVERE PAIN LEVEL 7-10 Last administered on 07/24/18at 17:34; Admin Dose 2 MG; Start 07/24/18 at 17:30 KRIS ROSADO NP Jul 27, 2018 10:37
[2018-07-27] MEDS: NIFEdipine (XL) 30 MG TAB PO SCH (10:42)
--- NOTE | 2018-07-27 12:00 | PN ---
Date/Time of Note Date/Time of Note DATE: 07/27/18 TIME: 11:57 Outpatient Progress Note Chief Complaint WEAKNEES AND FATIGUE mild distress no bleeding Review of Systems Const: No Fever, no chills, no Wt. loss, no Fatigue, normal appetite, no diaphoresis. Eyes: No pain, no discharge, no redness, no visual change, no foreign body. ENT: No pain, no bleeding, no congestion, no sore throat, no dysphagia, no discharge or rhinitis. Lymph: No adenopathy, no tender nodes, no lymphedema. Resp: No SOB, no cough, no sputum, no wheezing, no chest pain. CV: No chest pain, no palpitaions, no YE, no PND, no edema. GI: Normal appetite, no pain, no nausea, no vomiting, no diarrhea, no blood, no constipation. : No frequency, no urgency, no dysuria, no hematuria, no flank pain, no discharge, no bleeding. Musc: No bone/joint pain, no back pain, no neck pain, no knee pain, no restricted ROM. Skin: No rash, no skin lesions, no erythema, no laceration, no bruising, no pruritus. Neuro: No THEODORE, no dizziness, no syncope, no seizure, no focal-weakness. Endo: No polyuria, no polydypsia, no dry-skin, no temp-intolerance. Psych: No hallucinations, no depression, no anxiety, no suicidal ideation. Ext: No edema, no pain, no ulcer, no weakness. Physical Exam Vital Signs Date Temp Pulse Resp B/P (MAP) Pulse Ox O2 O2 Flow FiO2 Time Delivery Rate 07/27/18 97.9 78 18 191/90 95 Room Air 07:59 (123) 07/25/18 2.0 17:56 Intake and Output 07/26/18 07/26/18 07/27/18 1515:00 23:00 07:00 IntakeIntake Total 1280 ml 440 ml BalanceBalance 1280 ml 440 ml General Appearance: A [] year-old [] who appears well-developed, well-nourished, in no acute distress. HEENT: Head normocephalic, atraumatic. Pupils equal, round, reactive to light and accommodate. Sclerae are no jaundice. Nasal turbinates pink without erythema or nasal discharge. Mucous membranes pink and moist without lesions. Oropharynx clear without any exudate or discharge. NECK: Supple. Trachea midline, No thyromegaly, No cervical lymphadenopathy, No mass, No carotid bruits, No JVD, Carotid pulses 2+ bilaterally. PULMONARY: Clear to auscultaion bilaterally, No retractions, Chest expansion symmetric bilaterally, no rales, no ronchi, no dulness on percussion. CARDIAC: Normal SI and S2, Regular rate and rythm, no murmur, gallop, or rub. GASTROINTESTINAL: Abdomen is soft, non-tender, Non Rigid, No distention, Positive bowel sounds x4 quadrants, Liver normal. SKIN: Warm, dry, no rash, no bruise, no echmosis. EXTREMITIES: Bilateral lower extremities normal, no edema, no phlabitus, pulse palpable, no contracture. MUSCULOSKELETAL: Spine Normal, Non-tender, Normal range of motion, No swelling, no deformity, no clubbing, or cyanosis, the patient has no edema to bilateral lower extremities, dorsalis pedis pulses palpable bilaterally. NEUROLOGIC: The patient is awake, alert, oriented, responding to yes/no questions appropriately, moving all extremities, cranial nerve intact, normal strenght, normal power, normal coordination, normal gait. Result Diagram: 07/27/1851207/27/18512 Allergies Coded Allergies: Penicillins (Verified Allergy, Unknown, 07/24/18) amoxicillin (Verified Allergy, Unknown, 07/24/18) Family Hx Patient History: Endocrine and metabolic disease 33 FATHER, Onset:Unknown Assessment/Plan #Anemia likely multi factorial hepato-renal disease and anemia of chronic disease +- Non Immune hemolysis -Although the LDH is high and haptogobin is low, the normal indirect bili, negative vahid and and unremarkable smear do not support IMMUNE hemolysis. Furthermore the elevated LDH and low haptoglobin may be due to the liver i nflammation +- hepatorenal disease -Vitamin b12 and folate are normal -iron studies are consistent with anemia of chronic inflammation -continue procrit 10,000 units three times weekly -pt had bone marrow bx done, will follow up >> Keep Hb > 8 and Hct > 24 Continue procrit Reactive thrombocytosis Reactive leukocytosis No evidence of TTP/ HUS Medications Home Meds Reported Medications Calcium Acetate* (Calcium Acetate*) 667 Mg Capsule, 2001 MG PO WITH MEALS, #90 CAP 07/24/18 Nifedipine* (Nifedipine ER*) 30 Mg Tablet.sa, 30 MG PO DAILY, TAB.SA 07/24/18 Labetalol Hcl* (Labetalol Hcl*) 100 Mg Tablet, 100 MG PO BID, TAB 07/24/18 Furosemide* (Furosemide*) 80 Mg Tablet, 80 MG PO BID, #60 TAB 07/24/18 Amlodipine Besylate* (Norvasc*) 5 Mg Tablet, 5 MG PO DAILY, TAB 07/24/18 MISAEL ELKINS Jul 27, 2018 12:00
[2018-07-27 14:17] VITALS: BP 122/65; PULSE 65; RESP 16
[2018-07-27 19:39] VITALS: BP 135/73; PULSE 66; RESP 18
[2018-07-28] VITALS (16 sets, daily range): BP systolic 124–159; BP diastolic 70–85; PULSE 64–77; RESP 16–18
[2018-07-28] MEDS: PANTOPRAZOLE (EC) 40 MG TAB PO SCH (05:22)
[2018-07-28] MEDS: NIFEdipine (XL) 30 MG TAB PO SCH (08:46)
[2018-07-28] MEDS: AMLODIPINE 5 MG TAB PO SCH (08:47)
[2018-07-28] MEDS: LABETALOL 100 MG TAB PO SCH (08:47)
[2018-07-28] MEDS: morphine 2 MG INJ IV PRN (12:05)
--- NOTE | 2018-07-28 12:39 | PN ---
Date/Time of Note Date/Time of Note DATE: 07/28/18 TIME: 12:05 Assessment/Plan VTE Prophylaxis Risk score (from Nsg)>0 risk: 2 SCD applied (from Nsg): No SCD contraindicated: other (scds) Pharmacological prophylaxis: other (scds) Lines/Catheters [facility] Permacath Urinary Cath still in place: No Assessment/Plan Hospital Course Assessment: Diarrhea chronic x 6 months Leukocytosis- trending down Direct hyperbilirubinemia/Elevated alkaline phosphatase -MRCP neg for CBD obstruction Elevated lactate dehydrogenase Hepatomegaly with nutmeg type heterogeneous enhancement -Suggesting congestive heart failure or other hepatic congestion. Pulmonary nodules Left quadriceps fluid collection -abscess versus malignancy 60lb weight loss over 6 months -EGD/colonoscopy May 2018 - reported negative Normocytic anemia- stable with neg stool for OB Thrombocytosis- likely reactive ESRD on HD HTN Chronic n/v Tumor markers are negative S/p Bone marrow bx- pending Plan: Imodium 2 mg PRN Stool studies - pending Alk phos fractionation - pending D/c planning per hospitalist After d/c pt can f/u with GI to review pending results Obtian EGD/colon results and [facility] from [facility] Patient seen in collaboration with Dr. Del Rio Subjective: Pt sitting up in chair, no c/o diarrhea today. He notes diarrhea only with eating. Patient states he wants to go home. No c/o n/v or abdominal pain today. Awaiting results of bone marrow biopsy. Patient is being followed by asphalt paving superintendent, fire alarm technician and orthopedic surgeon. Continue observation. Pt appears stable from GI point of view. PHYSICAL EXAMINATION: GENERAL: Alert & oriented x 3, in no acute distress SKIN: No lesions HEAD: Normocephalic, atraumatic, no tenderness. EYES: Pupils equal reactive to light and accommodation, full extraocular movements, sclera-icteric, no discharge. EARS/NOSE AND THROAT: Ears normal, nose normal, oropharynx normal, oral membra yamil well hydrated without lesions. NECK: Supple, no masses,. CHEST: Inspection within normal limits. CARDIOVASCULAR: Heart: Regular rate and rhythm RESPIRATORY: Lungs clear to auscultation GASTROINTESTINAL AND LIVER: Abdomen: Soft, non tenderness, non-distended, no hernias, no masses, no organomegaly, no ascites, no guarding, no rebound tenderness, normoactive bowel sounds. Rectal: Deferred. EXTREMITIES: No cyanosis, clubbing or edema. Result Diagram: 07/28/1822 07/28/1822 Results 24hrs Laboratory Tests Test 07/28/18 05:22 White Blood Count 11.2 H Red Blood Count 3.10 L Hemoglobin 8.8 L Hematocrit 27.5 L Mean Corpuscular Volume 88.7 Mean Corpuscular Hemoglobin 28.4 L Mean Corpuscular Hemoglobin Concent 32.0 Red Cell Distribution Width 18.9 H Platelet Count 469 H Mean Platelet Volume 10.0 Immature Granulocytes % 0.600 H Neutrophils % 78.7 H Lymphocytes % 8.1 L Monocytes % 8.5 Eosinophils % 3.7 Basophils % 0.4 Nucleated Red Blood Cells % 0.0 Immature Granulocytes # 0.070 H Neutrophils # 8.8 H Lymphocytes # 0.9 Monocytes # 1.0 H Eosinophils # 0.4 Basophils # 0.1 Nucleated Red Blood Cells # 0.0 Sodium Level 137 Potassium Level 5.0 Chloride Level 97 Carbon Dioxide Level 19 L Anion Gap 21 #H Blood Urea Nitrogen 60 H Creatinine 7.03 H Est Glomerular Filtrat Rate mL/min 8 L Glucose Level 84 Calcium Level 8.0 L Phosphorus Level 10.0 H Magnesium Level 2.2 Total Bilirubin 2.0 H Direct Bilirubin 1.50 H Indirect Bilirubin 0.5 Aspartate Amino Transf (AST/SGOT) 43 Alanine Aminotransferase (ALT/SGPT) 17 Alkaline Phosphatase 1045 H Total Protein 7.7 Albumin 3.3 Globulin 4.40 H Albumin/Globulin Ratio 0.75 Exam/Review of Systems Exam Vitals Vital Signs Date Temp Pulse Resp B/P (MAP) Pulse Ox O2 O2 Flow FiO2 Time Delivery Rate 07/28/18 98.1 74 16 148/81 97 07:49 (103) 07/27/18 Room Air 07:59 07/25/18 2.0 17:56 Intake and Output 07/27/18 07/27/18 07/28/18 1515:00 23:00 07:00 IntakeIntake Total 800 ml 240 ml 500 ml BalanceBalance 800 ml 240 ml 500 ml Results Results 24hrs Laboratory Tests Test 07/28/18 05:22 White Blood Count 11.2 H Red Blood Count 3.10 L Hemoglobin 8.8 L Hematocrit 27.5 L Mean Corpuscular Volume 88.7 Mean Corpuscular Hemoglobin 28.4 L Mean Corpuscular Hemoglobin Concent 32.0 Red Cell Distribution Width 18.9 H Platelet Count 469 H Mean Platelet Volume 10.0 Immature Granulocytes % 0.600 H Neutrophils % 78.7 H Lymphocytes % 8.1 L Monocytes % 8.5 Eosinophils % 3.7 Basophils % 0.4 Nucleated Red Blood Cells % 0.0 Immature Granulocytes # 0.070 H Neutrophils # 8.8 H Lymphocytes # 0.9 Monocytes # 1.0 H Eosinophils # 0.4 Basophils # 0.1 Nucleated Red Blood Cells # 0.0 Sodium Level 137 Potassium Level 5.0 Chloride Level 97 Carbon Dioxide Level 19 L Anion Gap 21 #H Blood Urea Nitrogen 60 H Creatinine 7.03 H Est Glomerular Filtrat Rate mL/min 8 L Glucose Level 84 Calcium Level 8.0 L Phosphorus Level 10.0 H Magnesium Level 2.2 Total Bilirubin 2.0 H Direct Bilirubin 1.50 H Indirect Bilirubin 0.5 Aspartate Amino Transf (AST/SGOT) 43 Alanine Aminotransferase (ALT/SGPT) 17 Alkaline Phosphatase 1045 H Total Protein 7.7 Albumin 3.3 Globulin 4.40 H Albumin/Globulin Ratio 0.75 Medications Medication Current Medications IV Flush (NS 3 ml) 3 ml PER PROTOCOL IV ; Start 07/24/18 at 14:30 Ondansetron HCl (Zofran Inj) 4 mg Q6H PRN IV NAUSEA/VOMITING Last administered on 07/25/18at 23:59; Admin Dose 4 MG; Start 07/24/18 at 14:30 Acetaminophen (Tylenol Tab) 650 mg Q6H PRN PO .PAIN 1-3 OR TEMP; Start 07/24/18 at 14:30 Acetaminophen/ Hydrocodone Bitart ([place] (5/325)) 1 tab Q6H PRN PO .MOD PAIN 4- 6; Start 07/24/18 at 14:30 Amlodipine Besylate (Norvasc) 5 mg DAILY PO Last administered on 07/28/18 08:47; Admin Dose 5 MG; Start 07/25/18 at 09:00 Labetalol HCl (Normodyne) 100 mg BID PO Last administered on 07/28/18 08:47; Admin Dose 100 MG; Start 07/24/18 at 21:00 Nifedipine (Procardia Xl) 30 mg DAILY PO Last administered on 07/28/18 08:46; Admin Dose 30 MG; Start 07/25/18 at 09:00 Pantoprazole (Protonix Tab) 40 mg DAILY@06 PO Last administered on 07/28/18 05:22; Admin Dose 40 MG; Start 07/25/18 at 06:00 Hydralazine HCl (Apresoline) 10 mg Q6H PRN IV SBP>160 Last administered on 07/24/18 16:45; Admin Dose 10 MG; Start 07/24/18 at 16:00 Morphine Sulfate (morphine) 2 mg Q4H PRN IV SEVERE PAIN LEVEL 7-10 Last administered on 07/24/18 17:34; Admin Dose 2 MG; Start 07/24/18 at 17:30 Loperamide HCl (Imodium Cap) 2 mg QID PRN PO DIARRHEA; Start 07/27/18 at 10:30 ANDREW TAYLOR Jul 28, 2018 12:17
--- NOTE | 2018-07-28 12:51 | CONS ---
Assessment/Plan Assessment/Plan Assessment/Plan (Daily) - ESRD on hemodialysis @ [facility] - Persistent Anemia - Hypertension - Hyperphosphatemia - PVD PLAN: HD today Labs reviewed H/H stable ( post Transfusion ) EPO + IRON Consultation Date/Type/Reason Admit Date/Time Jul 26, 2018 at 08:01 Initial Consult Date 07/24/18 Type of Consult - Nephrology Requesting Provider: BERTHA LAUREANO NP Date/Time of Note DATE: 07/28/18 TIME: 12:51 24 HR Interval Summary Constitutional: no complaints, improved Exam/Review of Systems Exam Vitals Vital Signs Date Temp Pulse Resp B/P (MAP) Pulse Ox O2 O2 Flow FiO2 Time Delivery Rate 07/28/18 98.1 74 16 148/81 97 07:49 (103) 07/27/18 Room Air 07:59 07/25/18 2.0 17:56 Intake and Output 07/27/18 07/27/18 07/28/18 1515:00 23:00 07:00 IntakeIntake Total 800 ml 240 ml 500 ml BalanceBalance 800 ml 240 ml 500 ml Constitutional: alert, oriented Neck: supple Respiratory: crackles/rales Cardiovascular: regular rate and rhythm, edema, systolic murmur Gastrointestinal: soft Results Result Diagram: 07/28/18 0522 07/28/18 0522 Results 24hrs Laboratory Tests Test 07/28/18 05:22 White Blood Count 11.2 H Red Blood Count 3.10 L Hemoglobin 8.8 L Hematocrit 27.5 L Mean Corpuscular Volume 88.7 Mean Corpuscular Hemoglobin 28.4 L Mean Corpuscular Hemoglobin Concent 32.0 Red Cell Distribution Width 18.9 H Platelet Count 469 H Mean Platelet Volume 10.0 Immature Granulocytes % 0.600 H Neutrophils % 78.7 H Lymphocytes % 8.1 L Monocytes % 8.5 Eosinophils % 3.7 Basophils % 0.4 Nucleated Red Blood Cells % 0.0 Immature Granulocytes # 0.070 H Neutrophils # 8.8 H Lymphocytes # 0.9 Monocytes # 1.0 H Eosinophils # 0.4 Basophils # 0.1 Nucleated Red Blood Cells # 0.0 Sodium Level 137 Potassium Level 5.0 Chloride Level 97 Carbon Dioxide Level 19 L Anion Gap 21 #H Blood Urea Nitrogen 60 H Creatinine 7.03 H Est Glomerular Filtrat Rate mL/min 8 L Glucose Level 84 Calcium Level 8.0 L Phosphorus Level 10.0 H Magnesium Level 2.2 Total Bilirubin 2.0 H Direct Bilirubin 1.50 H Indirect Bilirubin 0.5 Aspartate Amino Transf (AST/SGOT) 43 Alanine Aminotransferase (ALT/SGPT) 17 Alkaline Phosphatase 1045 H Total Protein 7.7 Albumin 3.3 Globulin 4.40 H Albumin/Globulin Ratio 0.75 Medications Medication Current Medications IV Flush (NS 3 ml) 3 ml PER PROTOCOL IV ; Start 07/24/18 at 14:30 Ondansetron HCl (Zofran Inj) 4 mg Q6H PRN IV NAUSEA/VOMITING Last administered on 07/25/18 23:59; Admin Dose 4 MG; Start 07/24/18 at 14:30 Acetaminophen (Tylenol Tab) 650 mg Q6H PRN PO .PAIN 1-3 OR TEMP; Start 07/24/18 at 14:30 Acetaminophen/ Hydrocodone Bitart ([place] (5/325)) 1 tab Q6H PRN PO .MOD PAIN 4- 6; Start 07/24/18 at 14:30 Amlodipine Besylate (Norvasc) 5 mg DAILY PO Last administered on 07/28/18 08:47; Admin Dose 5 MG; Start 07/25/18 at 09:00 Labetalol HCl (Normodyne) 100 mg BID PO Last administered on 07/28/18 08:47; Admin Dose 100 MG; Start 07/24/18 at 21:00 Nifedipine (Procardia Xl) 30 mg DAILY PO Last administered on 07/28/18 08:46; Admin Dose 30 MG; Start 07/25/18 at 09:00 Pantoprazole (Protonix Tab) 40 mg DAILY@06 PO Last administered on 07/28/18 05:22; Admin Dose 40 MG; Start 07/25/18 at 06:00 Hydralazine HCl (Apresoline) 10 mg Q6H PRN IV SBP>160 Last administered on 07/24/18 16:45; Admin Dose 10 MG; Start 07/24/18 at 16:00 Morphine Sulfate (morphine) 2 mg Q4H PRN IV SEVERE PAIN LEVEL 7-10 Last administered on 07/28/18 12:05; Admin Dose 2 MG; Start 07/24/18 at 17:30 Loperamide HCl (Imodium Cap) 2 mg QID PRN PO DIARRHEA; Start 07/27/18 at 10:30 ZAHEER SHARIF MD Jul 28, 2018 12:51
--- NOTE | 2018-07-28 14:02 | CONS ---
Assessment/Plan Assessment/Plan Hospital Course (Demo Recall) Assessment/Plan (Daily) - #Anemia- Hgb 8.8 today most likely anemia of chronic disease, chronic inflammation - LDH is high and haptogobin is low, the normal indirect bili, negative vahid and and unremarkable smear do not support hemolysis. Furthermore the elevated LDH and low haptoglobin may be due to the liver inflammation -Vitamin b12 and folate are normal -iron studies are consistent with anemia of chronic inflammation -continue procrit 10,000 units three times weekly -pt had bone marrow bx done, will follow up. pending as of today #CHF -pt has BNP > 10,000 -continue Beta Blockade -consider Cardiology consult #ESRD -continue HD Consultation Date/Type/Reason Admit Date/Time Jul 26, 2018 at 08:01 Initial Consult Date 07/25/18 Requesting Provider: BERTHA LAUREANO NP Date/Time of Note DATE: 07/28/18 TIME: 13:59 Exam/Review of Systems Exam Vitals Vital Signs Date Temp Pulse Resp B/P (MAP) Pulse Ox O2 O2 Flow FiO2 Time Delivery Rate 07/28/18 98.2 70 18 154/75 98 13:30 (101) 07/27/18 Room Air 07:59 07/25/18 2.0 17:56 Intake and Output 07/27/18 07/27/18 07/28/18 1515:00 23:00 07:00 IntakeIntake Total 800 ml 240 ml 500 ml BalanceBalance 800 ml 240 ml 500 ml Constitutional: alert, oriented, well developed Results Result Diagram: 07/28/1822 07/28/18 0522 Results 24hrs Laboratory Tests Test 07/28/18 05:22 White Blood Count 11.2 H Red Blood Count 3.10 L Hemoglobin 8.8 L Hematocrit 27.5 L Mean Corpuscular Volume 88.7 Mean Corpuscular Hemoglobin 28.4 L Mean Corpuscular Hemoglobin Concent 32.0 Red Cell Distribution Width 18.9 H Platelet Count 469 H Mean Platelet Volume 10.0 Immature Granulocytes % 0.600 H Neutrophils % 78.7 H Lymphocytes % 8.1 L Monocytes % 8.5 Eosinophils % 3.7 Basophils % 0.4 Nucleated Red Blood Cells % 0.0 Immature Granulocytes # 0.070 H Neutrophils # 8.8 H Lymphocytes # 0.9 Monocytes # 1.0 H Eosinophils # 0.4 Basophils # 0.1 Nucleated Red Blood Cells # 0.0 Sodium Level 137 Potassium Level 5.0 Chloride Level 97 Carbon Dioxide Level 19 L Anion Gap 21 #H Blood Urea Nitrogen 60 H Creatinine 7.03 H Est Glomerular Filtrat Rate mL/min 8 L Glucose Level 84 Calcium Level 8.0 L Phosphorus Level 10.0 H Magnesium Level 2.2 Total Bilirubin 2.0 H Direct Bilirubin 1.50 H Indirect Bilirubin 0.5 Aspartate Amino Transf (AST/SGOT) 43 Alanine Aminotransferase (ALT/SGPT) 17 Alkaline Phosphatase 1045 H Total Protein 7.7 Albumin 3.3 Globulin 4.40 H Albumin/Globulin Ratio 0.75 Medications Medication Current Medications IV Flush (NS 3 ml) 3 ml PER PROTOCOL IV ; Start 07/24/18 at 14:30 Ondansetron HCl (Zofran Inj) 4 mg Q6H PRN IV NAUSEA/VOMITING Last administered on 07/25/18 23:59; Admin Dose 4 MG; Start 07/24/18 at 14:30 Acetaminophen (Tylenol Tab) 650 mg Q6H PRN PO .PAIN 1-3 OR TEMP; Start 07/24/18 at 14:30 Acetaminophen/ Hydrocodone Bitart ([place] (5/325)) 1 tab Q6H PRN PO .MOD PAIN 4- 6; Start 07/24/18 at 14:30 Amlodipine Besylate (Norvasc) 5 mg DAILY PO Last administered on 07/28/18 08:47; Admin Dose 5 MG; Start 07/25/18 at 09:00 Labetalol HCl (Normodyne) 100 mg BID PO Last administered on 07/28/18 08:47; Admin Dose 100 MG; Start 07/24/18 at 21:00 Nifedipine (Procardia Xl) 30 mg DAILY PO Last administered on 07/28/18 08:46; Admin Dose 30 MG; Start 07/25/18 at 09:00 Pantoprazole (Protonix Tab) 40 mg DAILY@06 PO Last administered on 07/28/18 05:22; Admin Dose 40 MG; Start 07/25/18 at 06:00 Hydralazine HCl (Apresoline) 10 mg Q6H PRN IV SBP>160 Last administered on 07/24/18at 16:45; Admin Dose 10 MG; Start 07/24/18 at 16:00 Morphine Sulfate (morphine) 2 mg Q4H PRN IV SEVERE PAIN LEVEL 7-10 Last administered on 07/28/18at 12:05; Admin Dose 2 MG; Start 07/24/18 at 17:30 Loperamide HCl (Imodium Cap) 2 mg QID PRN PO DIARRHEA; Start 07/27/18 at 10:30 RERE EDWARDS Jul 28, 2018 14:01
--- NOTE | 2018-07-28 15:49 | PN ---
Date/Time of Note Date/Time of Note DATE: 07/28/18 TIME: 15:46 Assessment/Plan VTE Prophylaxis Risk score (from Ns)>0 risk: 2 SCD applied (from Ns): No SCD contraindicated: low risk/ambulating Pharmacological prophylaxis: heparin Lines/Catheters IV C[facility]ter Type (from [facility] Permacath Urinary Cath still in place: No Assessment/Plan Hospital Course Assessment and plan 1. Anemia multifactorial, likely due to chronic disease/inflammation. LDH high/ haptogobin is low, normal indirect bili, negative vahid, and unremarkable smear do not support hemolysis. stable observe. Bone marrow biopsy results pending. 2. ESRD, continue dialysis 3. Chronic diarrhea, sp EGD/ colon as outpatient. Continue dairy, review medications outpatient GI consider pancreatic insufficiency eval/malabsorption syndrome. 4. Pulmonary nodule? Outpatient pulmonary. Q Gold ordered 5. Stable observe 6. Left thigh fluid collection, awaiting orthopedic eval Subjective: No distress. Objective: Vital signs stable Physical exam No pallor adenopathy Regular Clear Benign No edema Result Diagram: 07/28/1852107/28/1822 Results 24hrs Laboratory Tests Test 07/28/18 05:22 White Blood Count 11.2 H Red Blood Count 3.10 L Hemoglobin 8.8 L Hematocrit 27.5 L Mean Corpuscular Volume 88.7 Mean Corpuscular Hemoglobin 28.4 L Mean Corpuscular Hemoglobin Concent 32.0 Red Cell Distribution Width 18.9 H Platelet Count 469 H Mean Platelet Volume 10.0 Immature Granulocytes % 0.600 H Neutrophils % 78.7 H Lymphocytes % 8.1 L Monocytes % 8.5 Eosinophils % 3.7 Basophils % 0.4 Nucleated Red Blood Cells % 0.0 Immature Granulocytes # 0.070 H Neutrophils # 8.8 H Lymphocytes # 0.9 Monocytes # 1.0 H Eosinophils # 0.4 Basophils # 0.1 Nucleated Red Blood Cells # 0.0 Sodium Level 137 Potassium Level 5.0 Chloride Level 97 Carbon Dioxide Level 19 L Anion Gap 21 #H Blood Urea Nitrogen 60 H Creatinine 7.03 H Est Glomerular Filtrat Rate mL/min 8 L Glucose Level 84 Calcium Level 8.0 L Phosphorus Level 10.0 H Magnesium Level 2.2 Total Bilirubin 2.0 H Direct Bilirubin 1.50 H Indirect Bilirubin 0.5 Aspartate Amino Transf (AST/SGOT) 43 Alanine Aminotransferase (ALT/SGPT) 17 Alkaline Phosphatase 1045 H Total Protein 7.7 Albumin 3.3 Globulin 4.40 H Albumin/Globulin Ratio 0.75 Exam/Review of Systems Exam Vitals Vital Signs Date Temp Pulse Resp B/P (MAP) Pulse Ox O2 O2 Flow FiO2 Time Delivery Rate 07/28/18 98.2 70 18 154/75 98 13:30 (101) 07/27/18 Room Air 07:59 07/25/18 2.0 17:56 Intake and Output 07/27/18 07/27/18 07/28/18 1515:00 23:00 07:00 IntakeIntake Total 800 ml 240 ml 500 ml BalanceBalance 800 ml 240 ml 500 ml Results Results 24hrs Laboratory Tests Test 07/28/18 05:22 White Blood Count 11.2 H Red Blood Count 3.10 L Hemoglobin 8.8 L Hematocrit 27.5 L Mean Corpuscular Volume 88.7 Mean Corpuscular Hemoglobin 28.4 L Mean Corpuscular Hemoglobin Concent 32.0 Red Cell Distribution Width 18.9 H Platelet Count 469 H Mean Platelet Volume 10.0 Immature Granulocytes % 0.600 H Neutrophils % 78.7 H Lymphocytes % 8.1 L Monocytes % 8.5 Eosinophils % 3.7 Basophils % 0.4 Nucleated Red Blood Cells % 0.0 Immature Granulocytes # 0.070 H Neutrophils # 8.8 H Lymphocytes # 0.9 Monocytes # 1.0 H Eosinophils # 0.4 Basophils # 0.1 Nucleated Red Blood Cells # 0.0 Sodium Level 137 Potassium Level 5.0 Chloride Level 97 Carbon Dioxide Level 19 L Anion Gap 21 #H Blood Urea Nitrogen 60 H Creatinine 7.03 H Est Glomerular Filtrat Rate mL/min 8 L Glucose Level 84 Calcium Level 8.0 L Phosphorus Level 10.0 H Magnesium Level 2.2 Total Bilirubin 2.0 H Direct Bilirubin 1.50 H Indirect Bilirubin 0.5 Aspartate Amino Transf (AST/SGOT) 43 Alanine Aminotransferase (ALT/SGPT) 17 Alkaline Phosphatase 1045 H Total Protein 7.7 Albumin 3.3 Globulin 4.40 H Albumin/Globulin Ratio 0.75 Medications Medication Current Medications IV Flush (NS 3 ml) 3 ml PER PROTOCOL IV ; Start 07/24/18 at 14:30 Ondansetron HCl (Zofran Inj) 4 mg Q6H PRN IV NAUSEA/VOMITING Last administered on 07/25/18 23:59; Admin Dose 4 MG; Start 07/24/18 at 14:30 Acetaminophen (Tylenol Tab) 650 mg Q6H PRN PO .PAIN 1-3 OR TEMP; Start 07/24/18 at 14:30 Acetaminophen/ Hydrocodone Bitart ([place] (5/325)) 1 tab Q6H PRN PO .MOD PAIN 4- 6; Start 07/24/18 at 14:30 Amlodipine Besylate (Norvasc) 5 mg DAILY PO Last administered on 07/28/18 08:47; Admin Dose 5 MG; Start 07/25/18 at 09:00 Labetalol HCl (Normodyne) 100 mg BID PO Last administered on 07/28/18 08:47; Admin Dose 100 MG; Start 07/24/18 at 21:00 Nifedipine (Procardia Xl) 30 mg DAILY PO Last administered on 07/28/18 08:46; Admin Dose 30 MG; Start 07/25/18 at 09:00 Pantoprazole (Protonix Tab) 40 mg DAILY@06 PO Last administered on 07/28/18 05:22; Admin Dose 40 MG; Start 07/25/18 at 06:00 Hydralazine HCl (Apresoline) 10 mg Q6H PRN IV SBP>160 Last administered on 07/24/18at 16:45; Admin Dose 10 MG; Start 07/24/18 at 16:00 Morphine Sulfate (morphine) 2 mg Q4H PRN IV SEVERE PAIN LEVEL 7-10 Last administered on 07/28/18 12:05; Admin Dose 2 MG; Start 07/24/18 at 17:30 Loperamide HCl (Imodium Cap) 2 mg QID PRN PO DIARRHEA; Start 07/27/18 at 10:30 TREVOR POLLACK MD Jul 28, 2018 15:49
[2018-07-28] MEDS ORDERED: EPOETIN 10000 UNITS/1 ML INJ (ESRD) SC SCH (17:00)
[2018-07-29 00:05] VITALS: BP 155/80; PULSE 77
[2018-07-29] MEDS: morphine 2 MG INJ IV PRN (00:13)
[2018-07-29] MEDS: LABETALOL 100 MG TAB PO SCH ×2 (00:13→09:14)
[2018-07-29] MEDS: HEPARIN 5,000 UNIT/1 ML VIAL SC SCH ×2 (00:20→09:12)
[2018-07-29 00:37] VITALS: BP 171/84; PULSE 80; RESP 18
[2018-07-29 02:04] VITALS: BP 170/85; PULSE 85; RESP 17
[2018-07-29] MEDS: hydrALAzine 20 MG INJ IV PRN (02:21)
[2018-07-29 07:52] VITALS: BP 147/71; PULSE 83; RESP 18
[2018-07-29] MEDS: AMLODIPINE 5 MG TAB PO SCH (09:13)
[2018-07-29] MEDS: NIFEdipine (XL) 30 MG TAB PO SCH (09:14)
[2018-07-29] MEDS: CALCIUM ACETATE 667 MG CAP PO SCH ×2 (09:17→13:02)
--- NOTE | 2018-07-29 13:58 | DS ---
Date/Time of Note Date/Time of Note DATE: 07/29/18 TIME: 13:49 Discharge Summary Admission/Discharge Info Admit Date/Time Jul 26, 2018 at 08:01 Discharge Date/Time Patient Condition: Stable Consults Aly Cadena Procedures Labs: Hepatitis panel negative. Stool occult blood negative. TSH 4.5, a little high. Folic acid B12 titers okay. A1c & Quantiferon Gold test pending. May follow-up as outpatient. [phone]. Ultrasound liver IMPRESSION: Cholelithiasis. Mild hepatomegaly. Trace amount of ascites and a small right pleural effusion. Echogenic right kidney, consistent with medical renal disease. No evidence of hydronephrosis. Ultrasound venous bilaterally IMPRESSION: No evidence of a deep vein thrombosis within the bilateral lower extremities. 23 x 5 x 6.5 cm complex fluid collection in the left medial thighs soft tissues. Differential considerations including abscess versus organizing hematoma. Contrast-enhanced CT can be obtained for further evaluation. 2D ECHO Conclusions: Normal left ventricular systolic function. Normal left ventricular cavity size. Normal left ventricular wall thickness. Ejection fraction is visually estimated at 55-60 %. Tissue Doppler/Mitral Doppler indices are within normal limits. Normal appearance of the mitral valve. Mild mitral valve regurgitation. n. Aortic sclerosis without significant stenosis. Aortic cusps appear mildly calcified. Trace aortic valve regurgitation. Normal appearance of the tricuspid valve. Estimated peak PA systolic pressure 48 mmHg. There is moderate tricuspid regurgitation. CAT scan abdomen pelvis ABDOMINAL VASCULATURE: Slight aortic atherosclerotic calcifications are present. There are more severe peripheral atherosclerotic calcifications of the pelvis and lower extremities. LINES AND TUBES: Right IJ Perma-Cath is present with its tip in the right atrium. FINDINGS: HEART: Mildly enlarged. Coronary calcifications are present. THYROID: Unremarkable for CT. ADENOPATHY: None. THORACIC VASCULATURE: Mild atherosclerotic calcifications are present. CENTRAL AIRWAYS: Patent. RIGHT LUNG: Mild scattered interlobular septal thickening is present and there is a small to moderate size pleural effusion with approximately 50% atelectasis of the adjacent lower lobe. Faint scattered upper lobe ground-glass changes are noted. Nodules Include (solid and smoothly marginated unless noted otherwise): 0.3 cm right upper lobe axial image 49. 0.3 cm right upper lobe image 52. 0.3 x 0.4 cm right middle lobe image 73. 0.4 x 0.3 cm right middle lobe image 76. LEFT LUNG: Mild scattered interlobular septal thickening is present and there is a small to moderate-sized pleural effusion with approximately 50% atelectasis of the lower lobe. Faint scattered ground-glass changes are noted within the aerated lung. Nodules Include (solid and smoothly marginated unless noted otherwise): 0.4 cm left apex axial image 31. 0.3 cm calcified left apical granuloma image 32. 0.8 x 0.5 cm left upper lobe axial image 50. 0.2 cm left upper lobe sagittal image 76/axial image 58. LIVER: Enlarged measuring 19 cm in length with nutmeg type heterogeneous enhancement. SPLEEN: Unremarkable. PANCREAS: Unremarkable. GALLBLADDER: Unremarkable. ADRENAL GLANDS: Unremarkable. RIGHT KIDNEY: Unremarkable. LEFT KIDNEY: Unremarkable. ADENOPATHY: There are several small borderline sized retroperitoneal lymph nodes measuring up to 1 cm in short axis. ABDOMINAL VASCULATURE: Slight atherosclerotic calcifications are present. FREE FLUID: A small amount of ascites is present with mesenteric/omental edema. GI TRACT: There is no bowel dilatation to suggest obstruction. No inflammatory changes of the bowel are appreciated. APPENDIX: Not identified. PELVIC STRUCTURES: Unremarkable. OTHER SOFT TISSUES: Diffuse anasarca type changes are present. There is diffuse enlargement and hypodense change of the left quadriceps musculature. OSSEOUS STRUCTURES: There are degenerative changes of the spine. IMPRESSION: 1. Pulmonary changes suggest pulmonary congestion with small to moderate bilateral pleural effusions and lower lobe atelectasis. 2. Several pulmonary nodules are present with the largest measuring up to 0.8 x 0.5 cm within the left upper lobe. Correlation with priors is suggested if available. Follow-up chest CT is suggested in the next 6 to 12 months according to the Fleischner Society guidelines if there are no priors available for comparison. 3. Hepatomegaly with nutmeg type heterogeneous enhancement suggesting c ongestive heart failure or other hepatic congestion. 4. Borderline mild retroperitoneal adenopathy. 5. Small amount of ascites with diffuse anasarca type changes. 6. Diffuse enlargement and hypodense change of the left quadriceps muscles consistent with the fluid collection demonstrated on the recent ultrasound. This is concerning for myonecrosis that may be traumatic or infectious in nature. Neoplasm is thought less likely given the diffuse involvement but cannot be absolutely excluded. Correlation is suggested. Consider aspiration as warranted. MRCP/ MRI IMPRESSION: No evidence of biliary duct obstruction. No gallstones. Trace ascites and small bilateral pleural effusions. Hx of Present Illness 58-year-old gentleman referred for abnormal labs/anemia Hospital Course Hospitalist coverage/hospital course By GI and hematology for anemia. At this point in time has anemia multifactorial due to chronic disease and inflammation. Blood peripheral blood smear did not support active hemolysis. A bone marrow was done, results of which are pending. Patient is asked to follow-up with primary and otology in 1 week. Patient has a history of weight loss, will put in a referral to GI and pulmonary to see him as an outpatient additionally. And to visit orthopedic surgery for his left thigh fluid collection. He has less diarrhea at present and family states that his diet could be much better. C. difficile negative. Assessment and plan 1. Anemia multifactorial, likely due to chronic disease/inflammation. LDH high/ haptogobin is low, normal indirect bili, negative vahid, and unremarkable smear do not support hemolysis. stable observe. Bone marrow biopsy results pending. 2. ESRD, continue dialysis 3. Chronic diarrhea, sp EGD/ colon as outpatient. Continue dairy- free diet, review medications outpatient GI consider pancreatic insufficiency eval/malabsorption syndrome. 4. Pulmonary nodule? Outpatient pulmonary. Q Gold ordered 5. Stable observe 6. Left thigh fluid collection Home Meds Reported Medications Calcium Acetate* (Calcium Acetate*) 667 Mg Capsule, 2001 MG PO WITH MEALS, #90 CAP 07/24/18 Nifedipine* (Nifedipine ER*) 30 Mg Tablet.sa, 30 MG PO DAILY, TAB.SA 07/24/18 Labetalol Hcl* (Labetalol Hcl*) 100 Mg Tablet, 100 MG PO BID, TAB 07/24/18 Furosemide* (Furosemide*) 80 Mg Tablet, 80 MG PO BID, #60 TAB 07/24/18 Amlodipine Besylate* (Norvasc*) 5 Mg Tablet, 5 MG PO DAILY, TAB 07/24/18 Primary Care Provider Care Physician No Primary Time spent on discharge: > 30 minutes TREVOR POLLACK MD Jul 29, 2018 13:58
--- NOTE | 2018-07-29 14:00 | PDOCDIS ---
Discharge Instructions CONDITION [id number] Patient Condition: [id number] Stable HOME CARE INSTRUCTIONS: [id number] Diet Instructions: [id number] Activity Restrictions: [id number] Slowly Increase Activity Do not Drive FOLLOW UP/APPOINTMENTS Follow-up Plan appt PCP & Dr Aly Quinones 1wk Continue dialysis as instructed Dr Kerns [address] Joe Cadena 2wks TREVOR POLLACK MD Jul 29, 2018 14:00
[2018-07-29] MEDS ORDERED: LOPE-123 PO (14:01)
[2018-07-29 14:51] VITALS: BP 132/70; PULSE 92; RESP 20
== END 2018-07-29 15:00 | disposition home or self-care (01) | DRG 432 ==
LOC: E/R 06:51 → TEL 11:04 → INTOOBSV 11:04 → 2NE 07-26 00:52 → OBSVTOIN 07-26 08:01
PROVIDERS: ADMIT Internal Medicine; ATTEND Internal Medicine
PROC: 30233N1 Transfusion of Nonautologous Red Blood Cells into Peripheral Vein, Percutaneous Approach (ICD-10-PCS; principal; 2018-07-24)
PROC: 5A1D70Z Performance of Urinary Filtration, Intermittent, Less than 6 Hours Per Day (ICD-10-PCS; 2018-07-25)
PROC: 07DR3ZX Extraction of Iliac Bone Marrow, Percutaneous Approach, Diagnostic (ICD-10-PCS; 2018-07-25)
PROC: 5A1D70Z Performance of Urinary Filtration, Intermittent, Less than 6 Hours Per Day (ICD-10-PCS; 2018-07-28)
DX: K74.60 Unspecified cirrhosis of liver (principal); N18.6 End stage renal disease; I13.2 Hypertensive heart and chronic kidney disease with heart failure and with stage 5 chronic kidney disease, or end stage renal disease; D63.8 Anemia in other chronic diseases classified elsewhere; I50.9 Heart failure, unspecified; E11.22 Type 2 diabetes mellitus with diabetic chronic kidney disease; R63.4 Abnormal weight loss; Z68.22 Body mass index [BMI] 22.0-22.9, adult; D47.3 Essential (hemorrhagic) thrombocythemia; E11.51 Type 2 diabetes mellitus with diabetic peripheral angiopathy without gangrene; I25.10 Atherosclerotic heart disease of native coronary artery without angina pectoris; E78.5 Hyperlipidemia, unspecified; R91.8 Other nonspecific abnormal finding of lung field; R60.0 Localized edema; K52.9 Noninfective gastroenteritis and colitis, unspecified; Z88.0 Allergy status to penicillin; Z99.2 Dependence on renal dialysis
CPT/HCPCS: 36415; 36430; 71045; 71270; 74178; 74181; 76705; 77012; 80053; 80061; 82105; 82270; 82378; 82607; 82668; 82728; 82746; 83010; 83036; 83540; 83615; 83735; 83880; 84080; 84100; 84155; 84165; 84439; 84443; 85025; 85045; 85610; 85730; 86038; 86255; 86301; 86480; 86674; 86704; 86709; 86803; 86850; 86880; 86885; 86900; 86901; 86920; 87045; 87075; 87081; 87177; 87340; 88305; 88311; 88313; 90935; 93306; 93970; 99217; G0378; J0360; J0690; J1644; J2250; J2270; J2405; J3010; P9016; Q4081; Q9967

== ENCOUNTER 2018-08-13 11:24 | Inpatient (IN) | payer MEDICARE, BC ==
[~2018-08-13] VITALS: Ht 167.6 cm; Wt 53.0 kg
[2018-08-13] VITALS (19 sets, daily range): BP systolic 149–197; BP diastolic 70–112; PULSE 78–93; RESP 16–26
[~2018-08-13 11:24] MED LIST: AMLO5TAB4 PO; CALC667C PO; FURO80TA3 PO; LABE100T7 PO; LOPE-123 PO; NIFE30TA23 PO
[2018-08-13] MEDS ORDERED: LISI-471 PO (12:46)
[2018-08-13] MEDS ORDERED: LOPE-123 PO (12:47)
[2018-08-13] MEDS ORDERED: FURO40TA4 PO (12:48)
[2018-08-13] MEDS ORDERED: METO5TAB2 PO (12:49)
[2018-08-13] MEDS ORDERED: SODIUM POLYSTYRENE 15 GM KIT (POWDER + SORBITOL) PO STA (13:16)
[2018-08-13] MEDS ORDERED: CA CHLORIDE 10% 10 ML SYRINGE IV STA (13:16)
[2018-08-13] MEDS ORDERED: NA BICARBONATE 8.4% 50 ML SYG IV STA (13:16)
--- NOTE | 2018-08-13 13:22 | ERD ---
ER Documentation Chief Complaint Chief Complaint for medical clearance - body weakness ; unable to walk; on dialysis HPI 58-year-old male presents to the emergency department for generalized weakness. Patient has a history of dialysis dependent renal failure, but apparently has not had dialysis for over 2 weeks. Apparently this is because he had a suspicion for tuberculosis. However, he reports no cough, fevers, weight loss, hemoptysis. Having not have received his dialysis for over 2 weeks, he has a sensation of generalized weakness. He reports no focal weakness or numbness. He reports no shortness of breath. ROS All systems reviewed and are negative except as per history of present illness. Medications Home Meds Reported Medications Metoclopramide Hcl* (Metoclopramide Hcl*) 5 Mg Tablet, 5 MG PO BID PRN for NAUSEA AND OR VOMITING, TAB 08/13/18 Furosemide* (Furosemide*) 40 Mg Tablet, 40 MG PO DAILY, TAB 08/13/18 Loperamide Hcl* (Loperamide Hcl*) 2 Mg Cap, 2 MG PO WITH MEALS, CAP 08/13/18 Lisinopril* (Lisinopril*) 20 Mg Tablet, 20 MG PO DAILY, #30 TAB 08/13/18 Calcium Acetate* (Calcium Acetate*) 667 Mg Capsule, 1334 MG PO WITH MEALS, #90 CAP 07/24/18 Nifedipine* (Nifedipine ER*) 30 Mg Tablet.sa, 30 MG PO DAILY, TAB.SA 07/24/18 Labetalol Hcl* (Labetalol Hcl*) 100 Mg Tablet, 100 MG PO BID, TAB 07/24/18 Amlodipine Besylate* (Norvasc*) 5 Mg Tablet, 5 MG PO DAILY, TAB 07/24/18 Discontinued Reported Medications Furosemide* (Furosemide*) 80 Mg Tablet, 80 MG PO BID, #60 TAB 07/24/18 Discontinued Scripts Loperamide Hcl* (Loperamide Hcl*) 2 Mg Cap, 2 MG PO QID PRN for DIARRHEA for 5 Days, #20 CAP Prov:TREVOR POLLACK MD 07/29/18 Allergies Allergies: Coded Allergies: Penicillins (Verified Allergy, Unknown, 08/13/18) amoxicillin (Verified Allergy, Unknown, 08/13/18) PMhx/Soc History of Surgery: Yes (PERMACATH PLACEMENT) Anesthesia Reaction: No Hx Neurological Disorder: No Hx Respiratory Disorders: No Hx Cardiac Disorders: Yes Hx Psychiatric Problems: No Hx Alcohol Use: No Hx Substance Use: No Hx Tobacco Use: No Smoking Status: Never smoker FmHx Noncontributory for chief complaint Physical Exam Vitals Vital Signs Date Temp Pulse Resp B/P (MAP) Pulse Ox O2 O2 Flow FiO2 Time Delivery Rate 08/13/18 Nasal 2 11:56 Cannula 08/13/18 97.1 67 18 188/82 99 11:34 (117) Physical Exam GENERAL: Ill-appearing male HEENT: Pupils equal, round, and reactive to light. EOMI. There is no scleral icterus. NECK: C-spine is soft and supple, there is no meningismus. There is no cervical lymphadenopathy. LUNGS: Clear to auscultation bilaterally. There are no rales, wheezes or rhonchi. HEART: Regular rate and rhythm, no murmurs, clicks, rubs or gallops. ABDOMEN: Soft, non-tender, non-distended. There are bowel sounds in all four quadrants. No rebound or guarding. EXTREMITIES: 1+ edema bilaterally with no cyanosis or clubbing NEURO: The patient moves all four extremities with 5/5 strength. Cranial nerves II - XII are intact. Normal gait. Alert and oriented SKIN: There is no apparent rash or petechiae. No obvious source of infection. There is a right subclavian dialysis catheter in place with no obvious inflammatory changes at the insertion site. HEME/LYMPHATIC: There is no evidence of excessive bruising or lymphedema. PSYCHIATRIC: The patient does not appear anxious or depressed. Result Diagram: 08/13/18 1219 08/13/18 1219 Results 24 hrs Laboratory Tests Test 08/13/18 12:07 08/13/18 12:19 POC Venous Lactate 0.5 mmol/L White Blood Count 19.1 10^3/ul Red Blood Count 3.81 10^6/ul Hemoglobin 10.8 g/dl Hematocrit 33.7 % Mean Corpuscular Volume 88.5 fl Mean Corpuscular Hemoglobin 28.3 pg Mean Corpuscular Hemoglobin Concent 32.0 g/dl Red Cell Distribution Width 18.6 % Platelet Count 327 10^3/UL Mean Platelet Volume 9.8 fl Immature Granulocytes % 1.000 % Neutrophils % 89.9 % Lymphocytes % 3.7 % Monocytes % 3.9 % Eosinophils % 1.2 % Basophils % 0.3 % Nucleated Red Blood Cells % 0.3 /100WBC Immature Granulocytes # 0.200 10^3/ul Neutrophils # 17.1 10^3/ul Lymphocytes # 0.7 10^3/ul Monocytes # 0.8 10^3/ul Eosinophils # 0.2 10^3/ul Basophils # 0.1 10^3/ul Nucleated Red Blood Cells # 0.1 10^3/ul Sodium Level 135 mmol/L Potassium Level 7.7 mmol/L Chloride Level 101 mmol/L Carbon Dioxide Level 9 mmol/L Anion Gap 25 Blood Urea Nitrogen 110 mg/dl Creatinine 12.69 mg/dl Est Glomerular Filtrat Rate mL/min 4 mL/min Glucose Level 52 mg/dl Calcium Level 8.3 mg/dl Total Bilirubin 1.8 mg/dl Direct Bilirubin 1.60 mg/dl Indirect Bilirubin 0.2 mg/dl Aspartate Amino Transf (AST/SGOT) 31 IU/L Alanine Aminotransferase (ALT/SGPT) 21 IU/L Alkaline Phosphatase 970 IU/L Troponin I < 0.012 ng/ml Total Protein 8.9 g/dl Albumin 3.7 g/dl Globulin 5.20 g/dl Albumin/Globulin Ratio 0.71 Procedures/MDM Patient was taken to a room, seen and evaluated. Comfort measures were initiated. Diagnostic tests were ordered and reviewed. 3 LEAD RHYTHM STRIP: Normal sinus rhythm without ectopy EK lead EKG reviewed by myself: Normal Sinus Rhythm Normal Williams and intervals No ST elevation, depression, or T wave inversion Impression: Normal EKG RADIOLOGY: Reviewed with the radiologist CONSULTATION: Hospitalist was notified for admission. Nephrology consultation was obtained REEVALUATION: 1320: Initial diagnostic tests were appreciated including the hyperkalemia and renal failure complications. EKG was noted to have no peak T waves. Medicines was ordered for hyperkalemia. Patient remained hemodynamically stable. Arrangements were made for hospitalization and initiation of dialysis. MEDICAL DECISION MAKIN-year-old dialysis dependent infection presents with generalized weakness. Although the differential diagnosis entertained in this patient was broad and potential high acuity, patient clearly shows evidence of significant decompensated acute on chronic renal failure with complications including hyperkalemia and significant acidosis. Patient was also noted to have an elevated blood cell count, but a normal lactate and no obvious source of infection. I have therefore ordered cultures but have withheld antibiotics at this time. I suspect that the elevated white blood cell count is likely secondary to the significant uremia. Patient will be admitted to the hospital for monitoring of his electrolytes, reinitiation of dialysis and further treatment. CRITICAL CARE: Time:>35 minutes Patient has a significant chance of clinical deterioration Treatments/Evaluations: Close monitoring and treatment of unstable vital signs, cardiorespiratory, and neurologic status, while maintaining tight balance of fluid, respiratory, and cardiac interventions. Departure Diagnosis: Primary Impression: Renal failure Additional Impressions: Hyperkalemia Acidosis Condition: Critical ASIA MENDOZA Aug 13, 2018 13:21
[2018-08-13] MEDS ORDERED: MAGNESIUM HYDROXIDE 30ML CUP PO PRN (16:00)
[2018-08-13] MEDS ORDERED: ACETAMINOPHEN 325 MG TAB PO PRN (16:00)
[2018-08-13] MEDS ORDERED: METOCLOPRAMIDE 5 MG TAB PO PRN (16:00)
[2018-08-13] MEDS ORDERED: NITROGLYCERIN (SL) 0.4 MG TAB SL PRN (16:00)
[2018-08-13] MEDS ORDERED: morphine 2 MG INJ IV PRN (16:00)
[2018-08-13] MEDS ORDERED: ALBUTEROL/IPRATROPIUM (NEB) 3 ML AMP HHN PRN (16:00)
[2018-08-13] MEDS ORDERED: HYDROCODONE/APAP (5/325) TAB PO PRN (16:00)
[2018-08-13] MEDS ORDERED: DOCUSATE SODIUM 100 MG CAP PO PRN (16:00)
[2018-08-13] MEDS ORDERED: LORAZEPAM 2 MG INJ IV PRN (16:00)
[2018-08-13] MEDS ORDERED: NACL 0.9% 3 ML SYG IV SCH (16:00)
--- NOTE | 2018-08-13 16:28 | CONS ---
Assessment/Plan Assessment/Plan Assessment/Plan (Daily) - ESRD on hemodialysis - Hyperkalemia - Acidosis - Hypertension - Anemia - CAD / CHF - +ve Quantiferon-TB gold PLAN: On his last admission to hospital after his discharge his Quantiferon TB Gold test was reported positive although he has no respiratory symptoms He refused to come to hospital to be ruled out for active TB Outpatient follow up was made for him with pulmonary Outpatient Dialysis unit was not able to accommodate him until an active TB is ruled out Daily Dialysis x 3 to correct hyperkalemia & acidosis Will use a lower Blood flow today Sputum for AFB x 3 Follow up with labs Pulmonary evaluation Follow up with H/H THANK YOU SHARI Consultation Date/Type/Reason Admit Date/Time Aug 13, 2018 at 13:17 Date of Consultation: Aug 13, 2018 Type of Consult -Nephrology Reason for Consultation - ESRD on Hemodialysis Date/Time of Note DATE: 08/13/18 TIME: 16:12 Subjective hx not possible: pt critical status Constitutional: no complaints Eyes: no complaints ENT: no complaints Respiratory: no complaints Cardiovascular: no complaints Gastrointestinal: no complaints Genitourinary: no complaints Musculoskeletal: other (weakness) Skin: no complaints Past Medical History Medical History: congestive heart failure, coronary artery disease, diabetes, hypertension, renal disease Home Meds Reported Medications Metoclopramide Hcl* (Metoclopramide Hcl*) 5 Mg Tablet, 5 MG PO BID PRN for NAUSEA AND OR VOMITING, TAB 08/13/18 Furosemide* (Furosemide*) 40 Mg Tablet, 40 MG PO DAILY, TAB 08/13/18 Loperamide Hcl* (Loperamide Hcl*) 2 Mg Cap, 2 MG PO WITH MEALS, CAP 08/13/18 Lisinopril* (Lisinopril*) 20 Mg Tablet, 20 MG PO DAILY, #30 TAB 08/13/18 Calcium Acetate* (Calcium Acetate*) 667 Mg Capsule, 1334 MG PO WITH MEALS, #90 CAP 07/24/18 Nifedipine* (Nifedipine ER*) 30 Mg Tablet.sa, 30 MG PO DAILY, TAB.SA 07/24/18 Labetalol Hcl* (Labetalol Hcl*) 100 Mg Tablet, 100 MG PO BID, TAB 07/24/18 Amlodipine Besylate* (Norvasc*) 5 Mg Tablet, 5 MG PO DAILY, TAB 07/24/18 Discontinued Reported Medications Furosemide* (Furosemide*) 80 Mg Tablet, 80 MG PO BID, #60 TAB 07/24/18 Discontinued Scripts Loperamide Hcl* (Loperamide Hcl*) 2 Mg Cap, 2 MG PO QID PRN for DIARRHEA for 5 Days, #20 CAP Prov:TREVOR POLLACK MD 07/29/18 Medications Current Medications IV Flush (NS 3 ml) 3 ml PER PROTOCOL IV ; Start 08/13/18 at 16:00 Ondansetron HCl (Zofran Inj) 4 mg Q6H PRN IV NAUSEA/VOMITING; Start 08/13/18 at 16:00 Acetaminophen (Tylenol Tab) 650 mg Q6H PRN PO .PAIN 1-3 OR TEMP; Start 08/13/18 at 16:00 Acetaminophen/ Hydrocodone Bitart ([place] (5/325)) 1 tab Q6H PRN PO .MOD PAIN 4- 6; Start 08/13/18 at 16:00 Morphine Sulfate (morphine) 2 mg Q4H PRN IV .SEVERE PAIN 7-10; Start 08/13/18 at 16:00 Docusate Sodium (Colace) 100 mg Q12H PRN PO .CONSTIPATION; Start 08/13/18 at 16:00 Magnesium Hydroxide (Milk Of Mag) 30 ml DAILY PRN PO .CONSTIPATION; Start 08/13/18 at 16:00 Pantoprazole (Protonix Iv) 40 mg DAILY@06 IV ; Start 08/14/18 at 06:00 Lorazepam (Ativan) 0.5 mg Q6H PRN IV ANXIETY; Start 08/13/18 at 16:00 Albuterol/ Ipratropium (Duoneb) 3 ml Q4H RESP THERAPY PRN HHN SHORTNESS OF BREATH; Start 08/13/18 at 16:00 Nitroglycerin (Nitroglycerin (Sl Tab) 0.4 Mg) 1 tab Q5M PRN SL ANGINA; Start 08/13/18 at 16:00 Amlodipine Besylate (Norvasc) 5 mg DAILY PO ; Start 08/14/18 at 09:00 Calcium Acetate (Phoslo) 1,334 mg WITH MEALS PO ; Start 08/13/18 at 18:00 Furosemide (Lasix) 40 mg DAILY PO ; Start 08/14/18 at 09:00 Labetalol HCl (Normodyne) 100 mg BID PO ; Start 08/13/18 at 21:00 Loperamide HCl (Imodium Cap) 2 mg WITH MEALS PO ; Start 08/13/18 at 18:00 Metoclopramide HCl (Reglan) 5 mg BID PRN PO NAUSEA AND/OR VOMITING; Start 08/04 at 16:00 Nifedipine (Procardia Xl) 30 mg DAILY PO ; Start 08/14/18 at 09:00 Allergies: Coded Allergies: Penicillins (Verified Allergy, Unknown, 08/13/18) amoxicillin (Verified Allergy, Unknown, 08/13/18) Past Surgical History Past Surgical Hx: other Family History Significant Family History: no pertinent family hx Social History Alcohol Use: none Smoking Status: Never smoker Drug Use: none Exam/Review of Systems Exam Vitals Vital Signs Date Temp Pulse Resp B/P (MAP) Pulse Ox O2 O2 Flow FiO2 Time Delivery Rate 08/13/18 89 18 159/72 99 Room Air 15:17 (101) 08/13/18 2 11:56 08/13/18 97.1 11:34 Constitutional: alert, oriented Psych: no complaints Head: normocephalic Eyes: nl conjunctiva ENMT: nl external ears & nose Neck: supple Respiratory: crackles/rales Cardiovascular: regular rate and rhythm, edema, systolic murmur Gastrointestinal: soft Results Result Diagram: 08/13/18 1219 08/13/18 1219 Results 24hrs Laboratory Tests Test 08/13/18 12:07 08/13/18 12:19 POC Venous Lactate 0.5 White Blood Count 19.1 #H Red Blood Count 3.81 #L Hemoglobin 10.8 #L Hematocrit 33.7 #L Mean Corpuscular Volume 88.5 Mean Corpuscular Hemoglobin 28.3 L Mean Corpuscular Hemoglobin Concent 32.0 Red Cell Distribution Width 18.6 H Platelet Count 327 # Mean Platelet Volume 9.8 Immature Granulocytes % 1.000 H Neutrophils % 89.9 H Lymphocytes % 3.7 L Monocytes % 3.9 Eosinophils % 1.2 Basophils % 0.3 Nucleated Red Blood Cells % 0.3 H Immature Granulocytes # 0.200 H Neutrophils # 17.1 H Lymphocytes # 0.7 L Monocytes # 0.8 Eosinophils # 0.2 Basophils # 0.1 Nucleated Red Blood Cells # 0.1 H Sodium Level 135 Potassium Level 7.7 *H Chloride Level 101 Carbon Dioxide Level 9 *L Anion Gap 25 H Blood Urea Nitrogen 110 H Creatinine 12.69 H Est Glomerular Filtrat Rate mL/min 4 L Glucose Level 52 L Calcium Level 8.3 L Total Bilirubin 1.8 H Direct Bilirubin 1.60 H Indirect Bilirubin 0.2 Aspartate Amino Transf (AST/SGOT) 31 Alanine Aminotransferase (ALT/SGPT) 21 Alkaline Phosphatase 970 H Troponin I < 0.012 Total Protein 8.9 H Albumin 3.7 Globulin 5.20 H Albumin/Globulin Ratio 0.71 Hepatitis B Surface Antigen Pending Hepatitis B Core Total Antibody Pending Hepatitis C Antibody Pending Medications Medication Current Medications IV Flush (NS 3 ml) 3 ml PER PROTOCOL IV ; Start 08/13/18 at 16:00 Ondansetron HCl (Zofran Inj) 4 mg Q6H PRN IV NAUSEA/VOMITING; Start 08/13/18 at 16:00 Acetaminophen (Tylenol Tab) 650 mg Q6H PRN PO .PAIN 1-3 OR TEMP; Start 08/13/18 at 16:00 Acetaminophen/ Hydrocodone Bitart ([place] (5/325)) 1 tab Q6H PRN PO .MOD PAIN 4- 6; Start 08/13/18 at 16:00 Morphine Sulfate (morphine) 2 mg Q4H PRN IV .SEVERE PAIN 7-10; Start 08/13/18 at 16:00 Docusate Sodium (Colace) 100 mg Q12H PRN PO .CONSTIPATION; Start 08/13/18 at 16:00 Magnesium Hydroxide (Milk Of Mag) 30 ml DAILY PRN PO .CONSTIPATION; Start 08/13/18 at 16:00 Pantoprazole (Protonix Iv) 40 mg DAILY@06 IV ; Start 08/14/18 at 06:00 Lorazepam (Ativan) 0.5 mg Q6H PRN IV ANXIETY; Start 08/13/18 at 16:00 Albuterol/ Ipratropium (Duoneb) 3 ml Q4H RESP THERAPY PRN HHN SHORTNESS OF BREATH; Start 08/13/18 at 16:00 Nitroglycerin (Nitroglycerin (Sl Tab) 0.4 Mg) 1 tab Q5M PRN SL ANGINA; Start 08/13/18 at 16:00 Amlodipine Besylate (Norvasc) 5 mg DAILY PO ; Start 08/14/18 at 09:00 Calcium Acetate (Phoslo) 1,334 mg WITH MEALS PO ; Start 08/13/18 at 18:00 Furosemide (Lasix) 40 mg DAILY PO ; Start 08/14/18 at 09:00 Labetalol HCl (Normodyne) 100 mg BID PO ; Start 08/13/18 at 21:00 Loperamide HCl (Imodium Cap) 2 mg WITH MEALS PO ; Start 08/13/18 at 18:00 Metoclopramide HCl (Reglan) 5 mg BID PRN PO NAUSEA AND/OR VOMITING; Start 08/13/18 at 16:00 Nifedipine (Procardia Xl) 30 mg DAILY PO ; Start 08/14/18 at 09:00 ZAHEER SHARIF MD Aug 13, 2018 16:28
[2018-08-13] MEDS ORDERED: LEVOFLOXACIN 250MG/D5W (PMX) 50 ML IVPB SCH (17:00)
--- NOTE | 2018-08-13 17:14 | HP ---
DATE OF ADMISSION: 08/13/2018 IDENTIFICATION: This is a 58-year-old male. CHIEF COMPLAINT: Decreased ambulation, hyperkalemia. HISTORY OF PRESENT ILLNESS: A 58-year-old male with past medical history of end-stage renal disease on dialysis, although he is not on dialysis for the last 2 weeks, prior history of anemia, who comes in with some body weakness and decreased ability to walk. The patient also states he has not had marco a lysis for the last 2 weeks. There was a concerned that patient may be having tuberculosis, although he denies any cough or fevers. No weight loss. No hemoptysis. No recent travels. Apparently, he i s not able to get dialysis for the last 2 weeks because the dialysis center may want to rule him out for TB, so he decided to come in and when he arrived to the ER today, he was found with white blood c ell count of 19,000. His potassium was 7.7 in the ER and he was given Kayexalate, sodium bicarbonate and calcium chloride to help treat the hyperkalemia. The patient however did not have any signs of any ST changes on his EKG or any signs of any peaked T-waves. Denies upper or lower GI bleeding. No diarrhea or constipation. No shortness of breath, no chest pain, no nausea or vomiting. His creati nine today was also found to be 12.69. Of note, the patient was last here at our hospital from 07/26 to 07/29/2018. At that time, he was treated for anemia. PAST MEDICAL HISTORY: As stated above. ALLERGIES: 1. PENICILLIN. 2. AMOXICILLIN. HOME MEDICATIONS: Based on records: 1. Norvasc 5 mg daily. 2. Labetalol 100 mg b.i.d. 3. Lisinopril 20 mg daily. 4. Nifedipine ER 30 mg daily. 5. Calcium acetate 1334 mg with meals. 6. Lasix 40 mg daily. 7. Loperamide 2 mg with meals. 8. Reglan 5 mg b.i.d. p.r.n. PAST SURGICAL HISTORY: PermCath placement in the past. SOCIAL HISTORY: Negative for smoking, drinking or IV drug abuse. FAMILY HISTORY: Noncontributory. PHYSICAL EXAMINATION: VITAL SIGNS: T-max 97.1, pulse 67, respirations 18, blood pressure 188/82, satting at 99% on 2 liter s nasal cannula. GENERAL: The patient is lying in bed, presently getting dialysis in isolation room, in no acute dist ress. HEENT: Pupils are equal, round, react to light. Extraocular muscles are intact. NECK: Supple. No thyromegaly. LUNGS: Clear to auscultation bilaterally. CARDIOVASCULAR: S1, S2 heard. No rubs or gallops. ABDOMEN: Soft, nontender, nondistended. Normal bowel sounds. No rebound or guarding. MUSCULOSKELETAL: Trace pitting edema, bilateral lower extremities to the ankles. NEUROLOGIC: No focal deficits. LABORATORIES: WBC 19.1, hemoglobin 10.8, hematocrit 33.7, platelets 327. Sodium 135, potassium 7.7, chloride 101, CO2 of 9, BUN 110, creatinine 12.69, glucose of 52. DIAGNOSTIC DATA: Chest x-ray shows mild cardiomegaly with pulmonary vascular congestion. ASSESSMENT AND PLAN: This is a 58-year-old male who is presenting with hyperkalemia and missing dial ysis for the last 2 weeks, also rule out tuberculosis. 1. Weakness again likely secondary to patient not having dialysis for the last 2 weeks. There is al so questionable concern of pulmonary tuberculosis, although again the patient denies any hemoptysis, no weight loss, no night sweats or fever or chills. In any event, we will admit the patient to isola tion room. We will rule him out for tuberculosis by checking AFBs. He will be on DuoNeb p.r.n. Vaishali ck TSH, A1c, lipid panel. Given the fact that he has missed dialysis for the last 2 weeks, we will g et renal consult and the patient is presently undergoing emergent dialysis now. Follow up basic meta bolic panel in the morning. 2. Hyperkalemia, again severe and the fact that the patient came in with potassium of 7.7. Again, h e did receive Kayexalate, sodium bicarbonate and calcium chloride in the ER. Follow up BMP later tod ay after dialysis. Continue to monitor for now. Renal consult has been obtained. 3. History of anemia. The patient on this last admission last month was thought to have anemia like ly secondary to chronic disease and chronic inflammation. Presently today, the hemoglobin is 10.8, s o we will continue to monitor for now. 4. Leukocytosis, unclear source. The patient does not have any fevers. Monitor CBC daily. Conside r checking culture studies if necessary. Chest x-ray did show some signs of pulmonary vascular conge stion. Consider adding Levaquin as well, renally dose. 5. Gastrointestinal prophylaxis. PPI. 6. Deep venous thrombosis prophylaxis, SCDs. Dictated By: WINSOME MELTON/MILLIE Conf#: [id number] DID#: [id number] CC: ZAHEER SHARIF MD;*EndCC*
[2018-08-13] MEDS: LOPERAMIDE 2 MG CAP PO SCH (18:54)
[2018-08-13] MEDS: CALCIUM ACETATE 667 MG CAP PO SCH (18:55)
[2018-08-13] MEDS: HEPARIN 1000 UNITS/ML 10 ML INJ CATHETER PRN (18:57)
[2018-08-13] MEDS: hydrALAzine 20 MG INJ IV PRN (19:52)
[2018-08-13] MEDS: LEVOFLOXACIN 250MG/D5W (PMX) 50 ML IVPB SCH (19:53)
[2018-08-13] MEDS: LABETALOL 100 MG TAB PO SCH (20:25)
[2018-08-14] VITALS (33 sets, daily range): BP systolic 99–168; BP diastolic 47–92; PULSE 55–97; RESP 15–30
[2018-08-14] MEDS ORDERED: PANTOPRAZOLE 40 MG INJ IV SCH (06:00)
[2018-08-14] MEDS ORDERED: DEXTROSE 50% 50 ML SYRINGE IV ONE (07:30)
[2018-08-14] MEDS: CALCIUM ACETATE 667 MG CAP PO SCH ×3 (07:35→17:00)
[2018-08-14] MEDS: NIFEdipine (XL) 30 MG TAB PO SCH (08:40)
[2018-08-14] MEDS: FUROSEMIDE 40 MG TAB PO SCH (08:40)
[2018-08-14] MEDS: LOPERAMIDE 2 MG CAP PO SCH (08:40)
[2018-08-14] MEDS: LABETALOL 100 MG TAB PO SCH ×2 (08:40→20:44)
[2018-08-14] MEDS: AMLODIPINE 5 MG TAB PO SCH (08:41)
--- NOTE | 2018-08-14 12:16 | PN ---
Date/Time of Note Date/Time of Note DATE: 08/14/18 TIME: 12:08 Assessment/Plan VTE Prophylaxis Risk score (from Nsg)>0 risk: 5 SCD applied (from Nsg): Yes Pharmacological prophylaxis: other Lines/Catheters IV Catheter Type (from Nrsg): permacath Urinary Cath still in place: No Assessment/Plan Hospital Course S: Patient seen by renal team yesterday and had dialysis performed. Still o fficially waiting to be ruled out for active TB, sputum results have been ordered and are pending. No acute events overnight otherwise. O: Vs - see below PHYSICAL EXAMINATION: GENERAL: lying in bed, presently getting dialysis in isolation room, in no acute distress. HEENT: Pupils are equal, round, react to light. Extraocular muscles are intact. NECK: Supple. No thyromegaly. LUNGS: Clear to auscultation bilaterally. CARDIOVASCULAR: S1, S2 heard. No rubs or gallops. ABDOMEN: Soft, nontender, nondistended. Normal bowel sounds. No rebound or guarding. MUSCULOSKELETAL: Trace pitting edema, bilateral lower extremities to the ankles. NEUROLOGIC: No focal deficits. ASSESSMENT AND PLAN: 58-year-old male who is presenting with hyperkalemia and missing dialysis for the last 2 weeks, also rule out tuberculosis. 1. Weakness - again likely secondary to patient not having dialysis for the last 2 weeks. He did receive dialysis yesterday. There is also questionable concern of pulmonary tuberculosis, although again the patient denies any hemoptysis, no weight loss, no night sweats or fever or chills. AFP test results have been ordered and pending. -Continue care in isolation room for tuberculosis by checking AFBs. -Continue DuoNeb p.r.n., and Levaquin for possible upper respiratory infection - Follow-up pulmonary renal recommendations 2. Hyperkalemia-resolved now, today potassium 4.7 - patient initially came in yesterday with potassium of 7.7. Again, he did receive Kayexalate, sodium bicarbonate and calcium chloride in the ER. - Continue to monitor for now. Renal consult has been obtained. 3. History of anemia. The patient on this last admission last month was thought to have anemia likely secondary to chronic disease and chronic inflammation. Presently the hemoglobin is stable - continue to monitor for now. 4. Leukocytosis, unclear source. Worsening today, but no fevers. The patient does not have any fevers. - Monitor CBC daily, continue antibiotics as mentioned above -We will go ahead and obtain ID consult and consider checking culture studies if necessary. 5. Gastrointestinal prophylaxis. PPI. 6. Deep venous thrombosis prophylaxis, SCDs. Critical care time spent in patient care today equals 45 minutes. Result Diagram: 08/14/18 0453 08/14/18 0453 Results 24hrs Laboratory Tests Test 08/13/18 12:19 08/13/18 16:30 08/13/18 17:50 08/14/18 04:53 White Blood Count 19.1 #H 27.1 #H Red Blood Count 3.81 #L 4.07 L Hemoglobin 10.8 #L 11.1 L Hematocrit 33.7 #L 35.1 L Mean Corpuscular 88.5 86.2 Volume Mean Corpuscular 28.3 L 27.3 L Hemoglobin Mean Corpuscular 32.0 31.6 L Hemoglobin Concent Red Cell 18.6 H 18.8 H Distribution Width Platelet Count 327 # 273 Mean Platelet Volume 9.8 10.1 Immature 1.000 H 0.900 H Granulocytes % Neutrophils % 89.9 H Lymphocytes % 3.7 L Monocytes % 3.9 Eosinophils % 1.2 Basophils % 0.3 Nucleated Red Blood 0.3 H 1 H Cells % Immature 0.200 H 0.240 H Granulocytes # Neutrophils # 17.1 H Lymphocytes # 0.7 L Monocytes # 0.8 Eosinophils # 0.2 Basophils # 0.1 Nucleated Red Blood 0.1 H Cells # Sodium Level 135 137 Potassium Level 7.7 *H 4.7 # Chloride Level 101 102 Carbon Dioxide Level 9 *L 18 L Anion Gap 25 H 17 #H Blood Urea Nitrogen 110 H 63 #H Creatinine 12.69 H 8.67 #H Est Glomerular 4 L 6 L Filtrat Rate mL/min Glucose Level 52 L 34 #*L Calcium Level 8.3 L 8.2 L Total Bilirubin 1.8 H Direct Bilirubin 1.60 H Indirect Bilirubin 0.2 Aspartate Amino 31 Transf (AST/SGOT) Alanine 21 Aminotransferase (AL T/SGPT) Alkaline Phosphatase 970 H Troponin I < 0.012 Total Protein 8.9 H Albumin 3.7 Globulin 5.20 H Albumin/Globulin 0.71 Ratio Hepatitis B Surface NEGATIVE Antigen Hepatitis B Core NEGATIVE Total Antibody Hepatitis C Antibody NEGATIVE Hemoglobin A1c 4.3 4.4 Lactic Acid Level 0.8 Free Thyroxine 1.31 Prothrombin Time 15.6 H Prothrombin Time 1.2 Ratio INR International 1.23 Normalized Ratio Activated 44.2 H Partial Thromboplast Time Segmented 96 H Neutrophils % (Manual) Lymphocytes % 3 L (Manual) Monocytes % (Manual) 1 Lymphocytes (Manual) 0.8 Monocytes # (Manual) 0.2 L White Cell @See below Morphology Comment Platelet Estimate NORMAL Polychromasia 3+ Hypochromasia 1+ Poikilocytosis 1+ Anisocytosis 2+ Macrocytosis 2+ Target Cells 1+ Red Cell Morphology @See below Comment Test 08/14/18 04:54 08/14/18 06:23 08/14/18 06:45 08/14/18 06:56 Triglycerides Level 162 H Cholesterol Level 260 H LDL Cholesterol, 194 Calculated HDL Cholesterol 34 Cholesterol/HDL 7.6 Ratio Thyroid Stimulating 5.880 H Hormone (TSH) Bedside Glucose 38 *L 61 L 65 L Test 08/14/18 08:39 Bedside Glucose 135 Exam/Review of Systems Exam Vitals Vital Signs Date Temp Pulse Resp B/P (MAP) Pulse Ox O2 O2 Flow FiO2 Time Delivery Rate 08/14/18 97.4 11:45 08/14/18 69 18 131/66 99 11:00 (87) 08/14/18 Room Air 06:00 08/13/18 2 11:56 Intake and Output 08/13/18 08/13/18 08/14/18 1515:00 23:00 07:00 OutputOutput Total 2200 ml BalanceBalance -2200 ml Results Results 24hrs Laboratory Tests Test 08/13/18 12:19 08/13/18 16:30 08/13/18 17:50 08/14/18 04:53 White Blood Count 19.1 #H 27.1 #H Red Blood Count 3.81 #L 4.07 L Hemoglobin 10.8 #L 11.1 L Hematocrit 33.7 #L 35.1 L Mean Corpuscular 88.5 86.2 Volume Mean Corpuscular 28.3 L 27.3 L Hemoglobin Mean Corpuscular 32.0 31.6 L Hemoglobin Concent Red Cell 18.6 H 18.8 H Distribution Width Platelet Count 327 # 273 Mean Platelet Volume 9.8 10.1 Immature 1.000 H 0.900 H Granulocytes % Neutrophils % 89.9 H Lymphocytes % 3.7 L Monocytes % 3.9 Eosinophils % 1.2 Basophils % 0.3 Nucleated Red Blood 0.3 H 1 H Cells % Immature 0.200 H 0.240 H Granulocytes # Neutrophils # 17.1 H Lymphocytes # 0.7 L Monocytes # 0.8 Eosinophils # 0.2 Basophils # 0.1 Nucleated Red Blood 0.1 H Cells # Sodium Level 135 137 Potassium Level 7.7 *H 4.7 # Chloride Level 101 102 Carbon Dioxide Level 9 *L 18 L Anion Gap 25 H 17 #H Blood Urea Nitrogen 110 H 63 #H Creatinine 12.69 H 8.67 #H Est Glomerular 4 L 6 L Filtrat Rate mL/min Glucose Level 52 L 34 #*L Calcium Level 8.3 L 8.2 L Total Bilirubin 1.8 H Direct Bilirubin 1.60 H Indirect Bilirubin 0.2 Aspartate Amino 31 Transf (AST/SGOT) Alanine 21 Aminotransferase (AL T/SGPT) Alkaline Phosphatase 970 H Troponin I < 0.012 Total Protein 8.9 H Albumin 3.7 Globulin 5.20 H Albumin/Globulin 0.71 Ratio Hepatitis B Surface NEGATIVE Antigen Hepatitis B Core NEGATIVE Total Antibody Hepatitis C Antibody NEGATIVE Hemoglobin A1c 4.3 4.4 Lactic Acid Level 0.8 Free Thyroxine 1.31 Prothrombin Time 15.6 H Prothrombin Time 1.2 Ratio INR International 1.23 Normalized Ratio Activated 44.2 H Partial Thromboplast Time Segmented 96 H Neutrophils % (Manual) Lymphocytes % 3 L (Manual) Monocytes % (Manual) 1 Lymphocytes (Manual) 0.8 Monocytes # (Manual) 0.2 L White Cell @See below Morphology Comment Platelet Estimate NORMAL Polychromasia 3+ Hypochromasia 1+ Poikilocytosis 1+ Anisocytosis 2+ Macrocytosis 2+ Target Cells 1+ Red Cell Morphology @See below Comment Test 08/14/18 04:54 08/14/18 06:23 08/14/18 06:45 08/14/18 06:56 Triglycerides Level 162 H Cholesterol Level 260 H LDL Cholesterol, 194 Calculated HDL Cholesterol 34 Cholesterol/HDL 7.6 Ratio Thyroid Stimulating 5.880 H Hormone (TSH) Bedside Glucose 38 *L 61 L 65 L Test 08/14/18 08:39 Bedside Glucose 135 Medications Medication Current Medications IV Flush (NS 3 ml) 3 ml PER PROTOCOL IV ; Start 08/13/18 at 16:00 Ondansetron HCl (Zofran Inj) 4 mg Q6H PRN IV NAUSEA/VOMITING; Start 08/13/18 at 16:00 Acetaminophen (Tylenol Tab) 650 mg Q6H PRN PO .PAIN 1-3 OR TEMP; Start 08/13/18 at 16:00 Acetaminophen/ Hydrocodone Bitart ([place] (5/325)) 1 tab Q6H PRN PO .MOD PAIN 4- 6; Start 08/13/18 at 16:00 Morphine Sulfate (morphine) 2 mg Q4H PRN IV .SEVERE PAIN 7-10; Start 08/13/18 at 16:00 Docusate Sodium (Colace) 100 mg Q12H PRN PO .CONSTIPATION; Start 08/13/18 at 16:00 Magnesium Hydroxide (Milk Of Mag) 30 ml DAILY PRN PO .CONSTIPATION; Start 08/13/18 at 16:00 Lorazepam (Ativan) 0.5 mg Q6H PRN IV ANXIETY; Start 08/13/18 at 16:00 Albuterol/ Ipratropium (Duoneb) 3 ml Q4H RESP THERAPY PRN HHN SHORTNESS OF BREATH; Start 08/13/18 at 16:00 Nitroglycerin (Nitroglycerin (Sl Tab) 0.4 Mg) 1 tab Q5M PRN SL ANGINA; Start 08/13/18 at 16:00 Amlodipine Besylate (Norvasc) 5 mg DAILY PO Last administered on 08/14/18at 08:41; Admin Dose 5 MG; Start 08/14/18 at 09:00 Calcium Acetate (Phoslo) 1,334 mg WITH MEALS PO Last administered on 08/13/18at 18:55; Admin Dose 1,334 MG; Start 08/13/18 at 18:00 Furosemide (Lasix) 40 mg DAILY PO Last administered on 08/14/18at 08:40; Admin Dose 40 MG; Start 08/14/18 at 09:00 Labetalol HCl (Normodyne) 100 mg BID PO Last administered on 08/14/18at 08:40; Admin Dose 100 MG; Start 08/13/18 at 21:00 Metoclopramide HCl (Reglan) 5 mg BID PRN PO NAUSEA AND/OR VOMITING; Start 08/13/18 at 16:00 Nifedipine (Procardia Xl) 30 mg DAILY PO Last administered on 08/14/18 08:40; Admin Dose 30 MG; Start 08/14/18 at 09:00 Heparin Sodium (Porcine) (Heparin (1000 Units/ml)) 3,200 unit PRN PRN CATHETER Dialysis Last administered on 08/13/18 18:57; Admin Dose 3,200 UNIT; Start 08/13/18 at 17:00 Levofloxacin/ Dextrose 50 ml @ 50 mls/hr Q48H IVPB Last administered on 08/13/18at 19:53; Admin Dose 50 MLS/HR; Start 08/13/18 at 19:00 Hydralazine HCl (Apresoline) 10 mg Q6H PRN IV SBP >170 Last administered on 08/13/18at 19:52; Admin Dose 10 MG; Start 08/13/18 at 18:00 Pantoprazole (Protonix Tab) 40 mg DAILY@06 PO ; Start 08/15/18 at 06:00 WINSOME MATTHEWS Aug 14, 2018 12:16
--- NOTE | 2018-08-14 13:13 | CONS ---
Assessment/Plan Assessment/Plan Assessment/Plan (Daily) - ESRD on hemodialysis - Hyperkalemia - Acidosis - Hypertension - Anemia - CAD / CHF - +ve Quantiferon-TB gold PLAN: On his last admission to hospital after his discharge his Quantiferon TB Gold te st was reported positive although he has no respiratory symptoms He refused to come to hospital to be ruled out for active TB Outpatient follow up was made for him with pulmonary Outpatient Dialysis unit was not able to accommodate him until an active TB is ruled out Daily Dialysis x 3 to correct hyperkalemia & acidosis Will use a lower Blood flow today Sputum for AFB x 3 Follow up with labs Pulmonary evaluation Follow up with H/H HD #2 today Remains in isolation awaiting AFBx 3 Pulmonary follow up D/C MOM Consultation Date/Type/Reason Admit Date/Time Aug 13, 2018 at 13:17 Initial Consult Date 08/13/18 Type of Consult -Nephrology Date/Time of Note DATE: 08/14/18 TIME: 13:11 24 HR Interval Summary Constitutional: no complaints, improved Exam/Review of Systems Exam Vitals Vital Signs Date Temp Pulse Resp B/P (MAP) Pulse Ox O2 O2 Flow FiO2 Time Delivery Rate 08/14/18 97.4 11:45 08/14/18 69 18 131/66 99 11:00 (87) 08/14/18 Room Air 06:00 08/13/18 2 11:56 Intake and Output 08/13/18 08/13/18 08/14/18 1515:00 23:00 07:00 OutputOutput Total 2200 ml BalanceBalance -2200 ml Constitutional: alert, oriented Respiratory: clear to auscultation, crackles/rales Cardiovascular: systolic murmur Gastrointestinal: soft Results Result Diagram: 08/14/18 0453 08/14/18 0453 Results 24hrs Laboratory Tests Test 08/13/18 16:30 08/13/18 17:50 08/14/18 04:53 08/14/18 04:54 Hemoglobin A1c 4.3 4.4 Lactic Acid Level 0.8 Free Thyroxine 1.31 Prothrombin Time 15.6 H Prothrombin Time 1.2 Ratio INR International 1.23 Normalized Ratio Activated 44.2 H Partial Thromboplast Time White Blood Count 27.1 #H Red Blood Count 4.07 L Hemoglobin 11.1 L Hematocrit 35.1 L Mean Corpuscular 86.2 Volume Mean Corpuscular 27.3 L Hemoglobin Mean Corpuscular 31.6 L Hemoglobin Concent Red Cell 18.8 H Distribution Width Platelet Count 273 Mean Platelet Volume 10.1 Immature 0.900 H Granulocytes % Neutrophils % Segmented 96 H Neutrophils % (Manual) Lymphocytes % Lymphocytes % 3 L (Manual) Monocytes % Monocytes % (Manual) 1 Eosinophils % Basophils % Nucleated Red Blood 1 H Cells % Immature 0.240 H Granulocytes # Neutrophils # Lymphocytes (Manual) 0.8 Lymphocytes # Monocytes # Monocytes # (Manual) 0.2 L Eosinophils # Basophils # Nucleated Red Blood Cells # White Cell @See below Morphology Comment Platelet Estimate NORMAL Polychromasia 3+ Hypochromasia 1+ Poikilocytosis 1+ Anisocytosis 2+ Macrocytosis 2+ Target Cells 1+ Red Cell Morphology @See below Comment Sodium Level 137 Potassium Level 4.7 # Chloride Level 102 Carbon Dioxide Level 18 L Anion Gap 17 #H Blood Urea Nitrogen 63 #H Creatinine 8.67 #H Est Glomerular 6 L Filtrat Rate mL/min Glucose Level 34 #*L Calcium Level 8.2 L Triglycerides Level 162 H Cholesterol Level 260 H LDL Cholesterol, 194 Calculated HDL Cholesterol 34 Cholesterol/HDL 7.6 Ratio Thyroid Stimulating 5.880 H Hormone (TSH) Test 08/14/18 06:23 08/14/18 06:45 08/14/18 06:56 08/14/18 08:39 Bedside Glucose 38 *L 61 L 65 L 135 Medications Medication Current Medications IV Flush (NS 3 ml) 3 ml PER PROTOCOL IV ; Start 08/13/18 at 16:00 Ondansetron HCl (Zofran Inj) 4 mg Q6H PRN IV NAUSEA/VOMITING; Start 08/13/18 at 16:00 Acetaminophen (Tylenol Tab) 650 mg Q6H PRN PO .PAIN 1-3 OR TEMP; Start 08/13/18 at 16:00 Acetaminophen/ Hydrocodone Bitart ([place] (5/325)) 1 tab Q6H PRN PO .MOD PAIN 4- 6; Start 08/13/18 at 16:00 Morphine Sulfate (morphine) 2 mg Q4H PRN IV .SEVERE PAIN 7-10; Start 08/13/18 at 16:00 Docusate Sodium (Colace) 100 mg Q12H PRN PO .CONSTIPATION; Start 08/13/18 at 16:00 Magnesium Hydroxide (Milk Of Mag) 30 ml DAILY PRN PO .CONSTIPATION; Start 08/13/18 at 16:00 Lorazepam (Ativan) 0.5 mg Q6H PRN IV ANXIETY; Start 08/13/18 at 16:00 Albuterol/ Ipratropium (Duoneb) 3 ml Q4H RESP THERAPY PRN HHN SHORTNESS OF BREATH; Start 08/13/18 at 16:00 Nitroglycerin (Nitroglycerin (Sl Tab) 0.4 Mg) 1 tab Q5M PRN SL ANGINA; Start 08/13/18 at 16:00 Amlodipine Besylate (Norvasc) 5 mg DAILY PO Last administered on 08/14/18at 0 8:41; Admin Dose 5 MG; Start 08/14/18 at 09:00 Calcium Acetate (Phoslo) 1,334 mg WITH MEALS PO Last administered on 08/13/18at 18:55; Admin Dose 1,334 MG; Start 08/13/18 at 18:00 Furosemide (Lasix) 40 mg DAILY PO Last administered on 08/14/18at 08:40; Admin Dose 40 MG; Start 08/14/18 at 09:00 Labetalol HCl (Normodyne) 100 mg BID PO Last administered on 08/14/18at 08:40; Admin Dose 100 MG; Start 08/13/18 at 21:00 Metoclopramide HCl (Reglan) 5 mg BID PRN PO NAUSEA AND/OR VOMITING; Start 08/13/18 at 16:00 Nifedipine (Procardia Xl) 30 mg DAILY PO Last administered on 08/14/18at 08:40; Admin Dose 30 MG; Start 08/14/18 at 09:00 Heparin Sodium (Porcine) (Heparin (1000 Units/ml)) 3,200 unit PRN PRN CATHETER Dialysis Last administered on 08/13/18at 18:57; Admin Dose 3,200 UNIT; Start 08/13/18 at 17:00 Levofloxacin/ Dextrose 50 ml @ 50 mls/hr Q48H IVPB Last administered on 08/13/18at 19:53; Admin Dose 50 MLS/HR; Start 08/13/18 at 19:00 Hydralazine HCl (Apresoline) 10 mg Q6H PRN IV SBP >170 Last administered on 08/13/18at 19:52; Admin Dose 10 MG; Start 08/13/18 at 18:00 Pantoprazole (Protonix Tab) 40 mg DAILY@06 PO ; Start 08/15/18 at 06:00 ZAHEER SHARIF MD Aug 14, 2018 13:13
[2018-08-14] MEDS: HEPARIN 1000 UNITS/ML 10 ML INJ CATHETER PRN (19:18)
[2018-08-14] MEDS ORDERED: NACL 3% FOR INHALATION 15 ML NEBU NEB ONE (20:00)
[2018-08-14] MEDS: ONDANSETRON 4 MG INJ IV PRN (20:45)
[2018-08-15] VITALS (22 sets, daily range): BP systolic 88–144; BP diastolic 51–74; PULSE 71–84; RESP 17–37; Ht 167.6 cm; Wt 53.0 kg
[2018-08-15] MEDS: PANTOPRAZOLE (EC) 40 MG TAB PO SCH (06:13)
[2018-08-15] MEDS ORDERED: CALCIUM GLUCONATE 10% 2 GM in DEXTROSE 5% 100 ML IVPB ONE (06:30)
[2018-08-15] MEDS: NIFEdipine (XL) 30 MG TAB PO SCH (09:21)
[2018-08-15] MEDS: FUROSEMIDE 40 MG TAB PO SCH (09:21)
[2018-08-15] MEDS: LABETALOL 100 MG TAB PO SCH ×2 (09:21→21:56)
[2018-08-15] MEDS: CALCIUM ACETATE 667 MG CAP PO SCH ×3 (09:21→18:02)
[2018-08-15] MEDS: AMLODIPINE 5 MG TAB PO SCH (09:22)
--- NOTE | 2018-08-15 09:55 | PN ---
Date/Time of Note Date/Time of Note DATE: 08/15/18 TIME: 09:48 Assessment/Plan VTE Prophylaxis Risk score (from Ns)>0 risk: 5 SCD applied (from Ns): Yes Pharmacological prophylaxis: other Lines/Catheters IV [facility]ter Type (from [facility]): PERMACATH Urinary Cath still in place: No Assessment/Plan Hospital Course S: Patient had dialysis yesterday. No fevers overnight. 2 AFB sputum samples have been collected thus far. UA appears to be positive for UTI. O: Vs - see below PHYSICAL EXAMINATION: GENERAL: lying in bed, presently in isolation room, in no acute distress. HEENT: Pupils are equal, round, react to light. Extraocular muscles are intact. NECK: Supple. No thyromegaly. LUNGS: Clear to auscultation bilaterally. CARDIOVASCULAR: S1, S2 heard. No rubs or gallops. ABDOMEN: Soft, nontender, nondistended. Normal bowel sounds. No rebound or guarding. MUSCULOSKELETAL: Trace pitting edema, bilateral lower extremities to the ankles. NEUROLOGIC: No focal deficits. ASSESSMENT AND PLAN: 58-year-old male who is presenting with hyperkalemia and missing dialysis for the last 2 weeks, also rule out tuberculosis. 1. Weakness - again likely secondary to patient not having dialysis for the last 2 weeks. He did receive dialysis yesterday. There is also questionable concern of pulmonary tuberculosis, although again the patient denies any hemoptysis, no weight loss, no night sweats or fever or chills. AFP test results have been ordered and pending. - Continue care in isolation room for tuberculosis by checking AFBs-first AFB appears to be negative, follow-up results of second and third sputum AFB tests - Continue DuoNeb p.r.n., and Levaquin for possible upper respiratory infection - Follow-up further renal recommendations 2. Hyperkalemia-resolved now- patient initially came into the ER with potassium of 7.7. Again, he did receive Kayexalate, sodium bicarbonate and calcium chloride in the ER. - Continue to monitor for now. 3. History of anemia. The patient on this last admission last month was thought to have anemia likely secondary to chronic disease and chronic inflammation. Presently the hemoglobin is stable - continue to monitor for now. 4. Leukocytosis, unclear source-white blood cell count still in the mid 20 range, but no fevers. -Monitor CBC daily, continue antibiotics as mentioned above -Will obtain ID consult and consider checking culture studies if necessary. 5. Gastrointestinal prophylaxis. PPI. Critical care time spent in patient care today equals 40 minutes. Result Diagram: 08/15/189 08/15/189 Results 24hrs Laboratory Tests Test 08/14/18 13:20 08/15/18 04:49 Urine Color DM Urine Clarity TURBID A Urine pH 7.0 Urine Specific [place] 1.013 Urine Ketones NEGATIVE Urine Nitrite NEGATIVE Urine Bilirubin NEGATIVE Urine Urobilinogen NEGATIVE Urine Leukocyte Esterase 3+ H Urine Microscopic RBC 96 H Urine Microscopic WBC > 182 H Urine Bacteria FEW A Urine Hemoglobin 2+ H Urine Glucose NEGATIVE Urine Total Protein 3+ H White Blood Count 26.2 H Red Blood Count 3.68 L Hemoglobin 10.3 L Hematocrit 32.6 L Mean Corpuscular Volume 88.6 Mean Corpuscular Hemoglobin 28.0 L Mean Corpuscular Hemoglobin Concent 31.6 L Red Cell Distribution Width 18.9 H Platelet Count 285 Mean Platelet Volume 10.0 Immature Granulocytes % 1.000 H Neutrophils % 93.0 H Lymphocytes % 1.8 L Monocytes % 3.9 Eosinophils % 0.0 Basophils % 0.3 Nucleated Red Blood Cells % 0.2 H Immature Granulocytes # 0.260 H Neutrophils # 24.4 H Lymphocytes # 0.5 L Monocytes # 1.0 H Eosinophils # 0.0 Basophils # 0.1 Nucleated Red Blood Cells # 0.1 H Sodium Level 138 Potassium Level 4.0 Chloride Level 101 Carbon Dioxide Level 25 Anion Gap 12 Blood Urea Nitrogen 30 #H Creatinine 4.88 #H Est Glomerular Filtrat Rate mL/min 12 L Glucose Level 82 # Calcium Level 7.9 L Exam/Review of Systems Exam Vitals Vital Signs Date Temp Pulse Resp B/P (MAP) Pulse Ox O2 O2 Flow FiO2 Time Delivery Rate 08/15/18 77 19 124/63 96 Room Air 06:00 (83) 08/15/18 98.5 04:00 08/13/18 2 11:56 Intake and Output 08/14/18 08/14/18 08/15/18 1414:59 22:59 06:59 IntakeIntake Total 200 ml 350 ml OutputOutput Total 75 ml 1600 ml BalanceBalance -75 ml -1400 ml 350 ml Results Results 24hrs Laboratory Tests Test 08/14/18 13:20 08/15/18 04:49 Urine Color DM Urine Clarity TURBID A Urine pH 7.0 Urine Specific [place] 1.013 Urine Ketones NEGATIVE Urine Nitrite NEGATIVE Urine Bilirubin NEGATIVE Urine Urobilinogen NEGATIVE Urine Leukocyte Esterase 3+ H Urine Microscopic RBC 96 H Urine Microscopic WBC > 182 H Urine Bacteria FEW A Urine Hemoglobin 2+ H Urine Glucose NEGATIVE Urine Total Protein 3+ H White Blood Count 26.2 H Red Blood Count 3.68 L Hemoglobin 10.3 L Hematocrit 32.6 L Mean Corpuscular Volume 88.6 Mean Corpuscular Hemoglobin 28.0 L Mean Corpuscular Hemoglobin Concent 31.6 L Red Cell Distribution Width 18.9 H Platelet Count 285 Mean Platelet Volume 10.0 Immature Granulocytes % 1.000 H Neutrophils % 93.0 H Lymphocytes % 1.8 L Monocytes % 3.9 Eosinophils % 0.0 Basophils % 0.3 Nucleated Red Blood Cells % 0.2 H Immature Granulocytes # 0.260 H Neutrophils # 24.4 H Lymphocytes # 0.5 L Monocytes # 1.0 H Eosinophils # 0.0 Basophils # 0.1 Nucleated Red Blood Cells # 0.1 H Sodium Level 138 Potassium Level 4.0 Chloride Level 101 Carbon Dioxide Level 25 Anion Gap 12 Blood Urea Nitrogen 30 #H Creatinine 4.88 #H Est Glomerular Filtrat Rate mL/min 12 L Glucose Level 82 # Calcium Level 7.9 L Medications Medication Current Medications IV Flush (NS 3 ml) 3 ml PER PROTOCOL IV ; Start 08/13/18 at 16:00 Ondansetron HCl (Zofran Inj) 4 mg Q6H PRN IV NAUSEA/VOMITING Last administered on 08/14/18at 20:45; Admin Dose 4 MG; Start 08/13/18 at 16:00 Acetaminophen (Tylenol Tab) 650 mg Q6H PRN PO .PAIN 1-3 OR TEMP Last administered on 08/14/18at 17:30; Admin Dose 650 MG; Start 08/13/18 at 16:00 Acetaminophen/ Hydrocodone Bitart ([place] (5/325)) 1 tab Q6H PRN PO .MOD PAIN 4- 6; Start 08/13/18 at 16:00 Morphine Sulfate (morphine) 2 mg Q4H PRN IV .SEVERE PAIN 7-10; Start 08/13/18 at 16:00 Docusate Sodium (Colace) 100 mg Q12H PRN PO .CONSTIPATION; Start 08/13/18 at 16:00 Lorazepam (Ativan) 0.5 mg Q6H PRN IV ANXIETY; Start 08/13/18 at 16:00 Albuterol/ Ipratropium (Duoneb) 3 ml Q4H RESP THERAPY PRN HHN SHORTNESS OF BREATH; Start 08/13/18 at 16:00 Nitroglycerin (Nitroglycerin (Sl Tab) 0.4 Mg) 1 tab Q5M PRN SL ANGINA; Start 08/13/18 at 16:00 Amlodipine Besylate (Norvasc) 5 mg DAILY PO Last administered on 08/15/18 09:22; Admin Dose 5 MG; Start 08/14/18 at 09:00 Calcium Acetate (Phoslo) 1,334 mg WITH MEALS PO Last administered on 08/15/18 09:21; Admin Dose 1,334 MG; Start 08/13/18 at 18:00 Furosemide (Lasix) 40 mg DAILY PO Last administered on 08/15/18 09:21; Admin Dose 40 MG; Start 08/14/18 at 09:00 Labetalol HCl (Normodyne) 100 mg BID PO Last administered on 08/15/18 09:21; Admin Dose 100 MG; Start 08/13/18 at 21:00 Metoclopramide HCl (Reglan) 5 mg BID PRN PO NAUSEA AND/OR VOMITING; Start 08/13/18 at 16:00 Nifedipine (Procardia Xl) 30 mg DAILY PO Last administered on 08/15/18 09:21; Admin Dose 30 MG; Start 08/14/18 at 09:00 Heparin Sodium (Porcine) (Heparin (1000 Units/ml)) 3,200 unit PRN PRN CATHETER Dialysis Last administered on 08/14/18 19:18; Admin Dose 3,200 UNIT; Start 08/13/18 at 17:00 Levofloxacin/ Dextrose 50 ml @ 50 mls/hr Q48H IVPB Last administered on 08/13/18 19:53; Admin Dose 50 MLS/HR; Start 08/13/18 at 19:00 Hydralazine HCl (Apresoline) 10 mg Q6H PRN IV SBP >170 Last administered on 08/13/18 19:52; Admin Dose 10 MG; Start 08/13/18 at 18:00 Pantoprazole (Protonix Tab) 40 mg DAILY@06 PO Last administered on 08/15/18at 06:13; Admin Dose 40 MG; Start 08/15/18 at 06:00 WINSOME MATTHEWS Aug 15, 2018 09:55
--- NOTE | 2018-08-15 13:58 | CONS ---
DATE OF ADMISSION: 08/13/2018 DATE OF CONSULTATION: 08/15/2018 TYPE OF CONSULTATION: Infectious disease. REASON FOR CONSULTATION: Antibiotic management. HISTORY OF PRESENT ILLNESS: Cuong Quintana is a 58-year-old male who comes in with body wea kness and inability to walk. The patient has a history of end-stage renal disease on hemodialysis. He has not had dialysis for over 2 weeks. This is because he has suspicion for tuberculosis; however , he reports no cough, fever, weight loss or hemoptysis. He is complaining of generalized weakness. PAST MEDICAL HISTORY: Includes PermCath placement. FAMILY HISTORY: Noncontributory. SOCIAL HISTORY: He does not smoke, drink or abuse drugs. ALLERGIES: 1. PENICILLIN. 2. AMOXICILLIN. MEDICATIONS: Per chart. REVIEW OF SYSTEMS: Noncontributory. HOSPITAL COURSE: On admission on the 08/13/2018, his white count was 19.1 with 90% polys or neutroph ils, H and H of 10.8 and 33.7, platelet count 327,000. BUN and creatinine is 110/12.69, random gluco se was 52. He has a right subclavian dialysis catheter. The patient was seen by Dr. Daigle. His Q uantiFERON Gold was reported positive. He had no respiratory symptoms. Daily dialysis x3 to correct hyperkalemia and acidosis. Sputum for AFB x3. The patient was seen by Dr. Matthews. Two AFB sputum marques ve been collected so far on 08/15/2018. UA appears positive for urinary tract infection. His UA kings wed 3+ leukocyte esterase, greater than 182 white cells per high-power field and 96 red blood cells p er high-power field. His hepatitis panel is negative. Microbiology: Blood cultures so far are nega tive. Chest x-ray: Mild cardiomegaly with pulmonary vascular congestion. The patient is on Levaqui n. PHYSICAL EXAMINATION: GENERAL: He is lying in bed in isolation room in no acute distress. VITAL SIGNS: Stable. He is afebrile. SKIN: Without generalized rash. HEENT: Within normal limits. NECK: Supple. LYMPH NODES: None palpable. CHEST: Decreased breath sounds at the bases. HEART: Without murmur or gallop. ABDOMEN: Soft, nontender without organosplenomegaly or masses. EXTREMITIES: He has trace pitting edema, bilateral lower extremities. RECTAL AND GENITAL: Deferred. NEUROLOGICAL: No focal neurological abnormality. IMPRESSION AND PLAN: The patient is weak secondary to lack of dialysis. He was hyperkalemic, which is now resolving. Leukocytosis. The patient probably has urinary tract infection. If his sputum fo r AFB is negative, I would not treat him for tuberculosis. His white count is still 26,200 which may be related to his urinary tract infection and also to his debility. His BUN and creatinine is 30/4. 88. We will continue to observe him on current therapy. I will dictate my findings to the [facility]. Dictated By: JESSICA ROGEL MD, JD/MILLIE Conf#: [id number] DID#: [id number] CC: WINSOME MATTHEWS;*EndCC*
[2018-08-15] MEDS: LEVOFLOXACIN 250MG/D5W (PMX) 50 ML IVPB SCH (21:56)
[2018-08-16] VITALS (12 sets, daily range): BP systolic 95–126; BP diastolic 50–63; PULSE 64–84; RESP 17–19
[2018-08-16] MEDS: PANTOPRAZOLE (EC) 40 MG TAB PO SCH (06:11)
--- NOTE | 2018-08-16 09:54 | PN ---
Date/Time of Note Date/Time of Note DATE: 08/16/18 TIME: 09:50 Assessment/Plan VTE Prophylaxis Risk score (from Ns)>0 risk: 5 SCD applied (from Ns): Yes Pharmacological prophylaxis: other Lines/Catheters IV [facility]from [facility] [place] Urinary Cath still in place: No Assessment/Plan Hospital Course S: Patient out of intensive care unit but still in respiratory isolation room now on telemetry. Seen by infectious disease team yesterday. No fevers overnight. O: Vs - see below PHYSICAL EXAMINATION: GENERAL: lying in bed, presently in isolation room, in no acute distress. HEENT: Pupils are equal, round, react to light. Extraocular muscles are intact. NECK: Supple. No thyromegaly. LUNGS: Clear to auscultation bilaterally. CARDIOVASCULAR: S1, S2 heard. No rubs or gallops. ABDOMEN: Soft, nontender, nondistended. Normal bowel sounds. No rebound or guarding. MUSCULOSKELETAL: Trace pitting edema, bilateral lower extremities to the ankles. NEUROLOGIC: No focal deficits. ASSESSMENT AND PLAN: 58-year-old male who is presenting with hyperkalemia and missing dialysis for the last 2 weeks, also rule out tuberculosis. 1. Weakness -resolving now, again likely secondary to patient not having dialysis for the last 2 weeks prior to admission. There is also questionable concern of pulmonary tuberculosis, although again the patient denies any hemoptysis, no weight loss, no night sweats or fever or chills. AFB test results have been ordered and results pending. - Continue care in isolation room for tuberculosis by checking AFBs -final results on these 3 sputum tests are pending - Continue DuoNeb p.r.n. 2. End-stage renal disease: On dialysis 3 times a week - Follow-up further renal recommendations regarding dialysis 2. Hyperkalemia-resolved now- (patient initially came into the ER with potassium of 7.7). Again, he did receive Kayexalate, sodium bicarbonate and calcium chloride in the ER. - Continue to monitor for now. 3. History of anemia. The patient on this last admission last month was thought to have anemia likely secondary to chronic disease and chronic inflammation. Presently the hemoglobin is stable - continue to monitor for now. 4. Leukocytosis-likely secondary to UTI. Urine culture shows greater than 100,000 gram-negative rods at this point. -Monitor CBC daily, again also being ruled out for active TB. -Continue Levaquin, follow-up recommendations from ID consult, and follow-up final urine culture results 5. Gastrointestinal prophylaxis. PPI. Result Diagram: 08/16/1823 08/16/1823 Results 24hrs Laboratory Tests Test 08/16/18 05:23 White Blood Count 14.9 #H Red Blood Count 3.23 L Hemoglobin 8.9 L Hematocrit 28.5 L Mean Corpuscular Volume 88.2 Mean Corpuscular Hemoglobin 27.6 L Mean Corpuscular Hemoglobin Concent 31.2 L Red Cell Distribution Width 18.4 H Platelet Count 261 Mean Platelet Volume 10.0 Immature Granulocytes % 0.700 H Neutrophils % 87.3 H Lymphocytes % 5.2 L Monocytes % 6.2 Eosinophils % 0.4 Basophils % 0.2 Nucleated Red Blood Cells % 0.1 H Immature Granulocytes # 0.110 H Neutrophils # 13.0 H Lymphocytes # 0.8 Monocytes # 0.9 Eosinophils # 0.1 Basophils # 0.0 Nucleated Red Blood Cells # 0.0 Sodium Level 135 Potassium Level 4.5 Chloride Level 99 Carbon Dioxide Level 24 Anion Gap 12 Blood Urea Nitrogen 43 #H Creatinine 6.08 H Est Glomerular Filtrat Rate mL/min 10 L Glucose Level 110 Calcium Level 8.1 L Exam/Review of Systems Exam Vitals Vital Signs Date Temp Pulse Resp B/P (MAP) Pulse Ox O2 O2 Flow FiO2 Time Delivery Rate 08/16/18 98.9 71 19 113/61 95 07:43 (78) 08/15/18 Room Air 18:00 08/15/18 21 11:59 08/13/18 2 11:56 Intake and Output 08/15/18 08/15/18 08/16/18 1515:00 23:00 07:00 IntakeIntake Total 740 ml 200 ml 300 ml BalanceBalance 740 ml 200 ml 300 ml Results Results 24hrs Laboratory Tests Test 08/16/18 05:23 White Blood Count 14.9 #H Red Blood Count 3.23 L Hemoglobin 8.9 L Hematocrit 28.5 L Mean Corpuscular Volume 88.2 Mean Corpuscular Hemoglobin 27.6 L Mean Corpuscular Hemoglobin Concent 31.2 L Red Cell Distribution Width 18.4 H Platelet Count 261 Mean Platelet Volume 10.0 Immature Granulocytes % 0.700 H Neutrophils % 87.3 H Lymphocytes % 5.2 L Monocytes % 6.2 Eosinophils % 0.4 Basophils % 0.2 Nucleated Red Blood Cells % 0.1 H Immature Granulocytes # 0.110 H Neutrophils # 13.0 H Lymphocytes # 0.8 Monocytes # 0.9 Eosinophils # 0.1 Basophils # 0.0 Nucleated Red Blood Cells # 0.0 Sodium Level 135 Potassium Level 4.5 Chloride Level 99 Carbon Dioxide Level 24 Anion Gap 12 Blood Urea Nitrogen 43 #H Creatinine 6.08 H Est Glomerular Filtrat Rate mL/min 10 L Glucose Level 110 Calcium Level 8.1 L Medications Medication Current Medications IV Flush (NS 3 ml) 3 ml PER PROTOCOL IV ; Start 08/13/18 at 16:00 Ondansetron HCl (Zofran Inj) 4 mg Q6H PRN IV NAUSEA/VOMITING Last administered on 08/14/18at 20:45; Admin Dose 4 MG; Start 08/13/18 at 16:00 Acetaminophen (Tylenol Tab) 650 mg Q6H PRN PO .PAIN 1-3 OR TEMP Last administered on 08/14/18at 17:30; Admin Dose 650 MG; Start 08/13/18 at 16:00 Acetaminophen/ Hydrocodone Bitart ([place] (5/325)) 1 tab Q6H PRN PO .MOD PAIN 4- 6; Start 08/13/18 at 16:00 Morphine Sulfate (morphine) 2 mg Q4H PRN IV .SEVERE PAIN 7-10; Start 08/13/18 at 16:00 Docusate Sodium (Colace) 100 mg Q12H PRN PO .CONSTIPATION; Start 08/13/18 at 16:00 Lorazepam (Ativan) 0.5 mg Q6H PRN IV ANXIETY; Start 08/13/18 at 16:00 Albuterol/ Ipratropium (Duoneb) 3 ml Q4H RESP THERAPY PRN HHN SHORTNESS OF BREATH; Start 08/13/18 at 16:00 Nitroglycerin (Nitroglycerin (Sl Tab) 0.4 Mg) 1 tab Q5M PRN SL ANGINA; Start 08/13/18 at 16:00 Amlodipine Besylate (Norvasc) 5 mg DAILY PO Last administered on 08/15/18at 09:22; Admin Dose 5 MG; Start 08/14/18 at 09:00 Calcium Acetate (Phoslo) 1,334 mg WITH MEALS PO Last administered on 08/15/18 18:02; Admin Dose 1,334 MG; Start 08/13/18 at 18:00 Furosemide (Lasix) 40 mg DAILY PO Last administered on 08/15/18 09:21; Admin Dose 40 MG; Start 08/14/18 at 09:00 Labetalol HCl (Normodyne) 100 mg BID PO Last administered on 08/15/18 21:56; Admin Dose 100 MG; Start 08/13/18 at 21:00 Metoclopramide HCl (Reglan) 5 mg BID PRN PO NAUSEA AND/OR VOMITING; Start 08/13/18 at 16:00 Nifedipine (Procardia Xl) 30 mg DAILY PO Last administered on 08/15/18 09:21; Admin Dose 30 MG; Start 08/14/18 at 09:00 Heparin Sodium (Porcine) (Heparin (1000 Units/ml)) 3,200 unit PRN PRN CATHETER Dialysis Last administered on 08/14/18 19:18; Admin Dose 3,200 UNIT; Start 08/13/18 at 17:00 Levofloxacin/ Dextrose 50 ml @ 50 mls/hr Q48H IVPB Last administered on 08/15/18 21:56; Admin Dose 50 MLS/HR; Start 08/13/18 at 19:00 Hydralazine HCl (Apresoline) 10 mg Q6H PRN IV SBP >170 Last administered on 08/13/18 19:52; Admin Dose 10 MG; Start 08/13/18 at 18:00 Pantoprazole (Protonix Tab) 40 mg DAILY@06 PO Last administered on 08/16/18 06:11; Admin Dose 40 MG; Start 08/15/18 at 06:00 WINSOME MATTHEWS Aug 16, 2018 09:54
[2018-08-16] MEDS: CALCIUM ACETATE 667 MG CAP PO SCH ×3 (10:01→18:02)
[2018-08-16] MEDS: LABETALOL 100 MG TAB PO SCH ×2 (10:03→20:47)
[2018-08-16] MEDS: AMLODIPINE 5 MG TAB PO SCH (10:04)
[2018-08-16] MEDS: NIFEdipine (XL) 30 MG TAB PO SCH (10:04)
[2018-08-16] MEDS: FUROSEMIDE 40 MG TAB PO SCH (10:05)
[2018-08-16] MEDS ORDERED: DIPHENHYDRAMINE 25 MG CAP PO PRN (13:00)
[2018-08-16] MEDS: CEFEPIME 1GM/50 ML (PMX) 50 ML IVPB SCH (15:17)
[2018-08-17] VITALS (11 sets, daily range): BP systolic 99–128; BP diastolic 55–69; PULSE 63–71; RESP 18–21
[2018-08-17] MEDS: PANTOPRAZOLE (EC) 40 MG TAB PO SCH (06:05)
[2018-08-17] MEDS: CALCIUM ACETATE 667 MG CAP PO SCH ×3 (09:02→17:01)
[2018-08-17] MEDS: FUROSEMIDE 40 MG TAB PO SCH (09:02)
[2018-08-17] MEDS: AMLODIPINE 5 MG TAB PO SCH (09:05)
[2018-08-17] MEDS: LABETALOL 100 MG TAB PO SCH ×2 (09:05→20:52)
[2018-08-17] MEDS: NIFEdipine (XL) 30 MG TAB PO SCH (09:05)
--- NOTE | 2018-08-17 09:43 | CONS ---
Assessment/Plan Assessment/Plan Assessment/Plan (Daily) - ESRD on hemodialysis - Hyperkalemia - Acidosis - Hypertension - Anemia - CAD / CHF - +ve Quantiferon-TB gold PLAN: On his last admission to hospital after his discharge his Quantiferon TB Gold test was reported positive although he has no respiratory symptoms He refused to come to hospital to be ruled out for active TB Outpatient follow up was made for him with pulmonary Outpatient Dialysis unit was not able to accommodate him until an active TB is ruled out Daily Dialysis x 3 to correct hyperkalemia & acidosis Will use a lower Blood flow today Sputum for AFB x 3 Follow up with labs Pulmonary evaluation Follow up with H/H HD #2 today Remains in isolation awaiting AFBx 3 Pulmonary follow up D/C MOM Feels better Follow up with AFB results ID evaluation noted Plan for next dialysis on 08/18/2018 Consultation Date/Type/Reason Admit Date/Time Aug 13, 2018 at 13:17 Initial Consult Date 08/13/18 Type of Consult -Nephrology Date/Time of Note DATE: 08/17/18 TIME: 09:42 24 HR Interval Summary Constitutional: no complaints, improved Exam/Review of Systems Exam Vitals Vital Signs Date Temp Pulse Resp B/P (MAP) Pulse Ox O2 O2 Flow FiO2 Time Delivery Rate 08/17/18 64 04:10 08/17/18 98.1 18 108/62 93 03:53 (77) 08/15/18 Room Air 18:00 08/15/18 21 11:59 08/13/18 2 11:56 Intake and Output 08/16/18 08/16/18 08/17/18 1515:00 23:00 07:00 IntakeIntake Total 850 ml 500 ml BalanceBalance 850 ml 500 ml Constitutional: alert, oriented Psych: no complaints Head: normocephalic Respiratory: crackles/rales Cardiovascular: regular rate and rhythm, systolic murmur Gastrointestinal: soft Results Result Diagram: 08/17/18 0503 08/17/18 0503 Results 24hrs Laboratory Tests Test 08/17/18 05:03 White Blood Count 13.0 H Red Blood Count 3.25 L Hemoglobin 8.9 L Hematocrit 28.1 L Mean Corpuscular Volume 86.5 Mean Corpuscular Hemoglobin 27.4 L Mean Corpuscular Hemoglobin Concent 31.7 L Red Cell Distribution Width 17.9 H Platelet Count 254 Mean Platelet Volume 10.1 Immature Granulocytes % 0.800 H Neutrophils % 84.7 H Lymphocytes % 5.5 L Monocytes % 7.1 Eosinophils % 1.5 Basophils % 0.4 Nucleated Red Blood Cells % 0.0 Immature Granulocytes # 0.100 H Neutrophils # 11.0 H Lymphocytes # 0.7 L Monocytes # 0.9 Eosinophils # 0.2 Basophils # 0.1 Nucleated Red Blood Cells # 0.0 Sodium Level 131 L Potassium Level 4.9 Chloride Level 96 L Carbon Dioxide Level 22 Anion Gap 13 Blood Urea Nitrogen 59 H Creatinine 6.89 H Est Glomerular Filtrat Rate mL/min 8 L Glucose Level 99 Calcium Level 8.2 L Medications Medication Current Medications IV Flush (NS 3 ml) 3 ml PER PROTOCOL IV ; Start 08/13/18 at 16:00 Ondansetron HCl (Zofran Inj) 4 mg Q6H PRN IV NAUSEA/VOMITING Last administered on 08/14/18at 20:45; Admin Dose 4 MG; Start 08/13/18 at 16:00 Acetaminophen (Tylenol Tab) 650 mg Q6H PRN PO .PAIN 1-3 OR TEMP Last administered on 08/14/18at 17:30; Admin Dose 650 MG; Start 08/13/18 at 16:00 Acetaminophen/ Hydrocodone Bitart ([place] (5/325)) 1 tab Q6H PRN PO .MOD PAIN 4- 6; Start 08/13/18 at 16:00 Morphine Sulfate (morphine) 2 mg Q4H PRN IV .SEVERE PAIN 7-10; Start 08/13/18 at 16:00 Docusate Sodium (Colace) 100 mg Q12H PRN PO .CONSTIPATION; Start 08/13/18 at 16:00 Lorazepam (Ativan) 0.5 mg Q6H PRN IV ANXIETY; Start 08/13/18 at 16:00 Albuterol/ Ipratropium (Duoneb) 3 ml Q4H RESP THERAPY PRN HHN SHORTNESS OF BREATH; Start 08/13/18 at 16:00 Nitroglycerin (Nitroglycerin (Sl Tab) 0.4 Mg) 1 tab Q5M PRN SL ANGINA; Start 08/13/18 at 16:00 Amlodipine Besylate (Norvasc) 5 mg DAILY PO Last administered on 08/16/18at 10:04; Admin Dose 5 MG; Start 08/14/18 at 09:00 Calcium Acetate (Phoslo) 1,334 mg WITH MEALS PO Last administered on 08/16/18 18:02; Admin Dose 1,334 MG; Start 08/13/18 at 18:00 Furosemide (Lasix) 40 mg DAILY PO Last administered on 08/16/18 10:05; Admin Dose 40 MG; Start 08/14/18 at 09:00 Labetalol HCl (Normodyne) 100 mg BID PO Last administered on 08/16/18at 20:47; Admin Dose 100 MG; Start 08/13/18 at 21:00 Metoclopramide HCl (Reglan) 5 mg BID PRN PO NAUSEA AND/OR VOMITING; Start 08/13/18 at 16:00 Nifedipine (Procardia Xl) 30 mg DAILY PO Last administered on 08/16/18 10:04; Admin Dose 30 MG; Start 08/14/18 at 09:00 Heparin Sodium (Porcine) (Heparin (1000 Units/ml)) 3,200 unit PRN PRN CATHETER Dialysis Last administered on 08/14/18at 19:18; Admin Dose 3,200 UNIT; Start 08/13/18 at 17:00 Hydralazine HCl (Apresoline) 10 mg Q6H PRN IV SBP >170 Last administered on 08/13/18at 19:52; Admin Dose 10 MG; Start 08/13/18 at 18:00 Pantoprazole (Protonix Tab) 40 mg DAILY@06 PO Last administered on 08/17/18at 06:05; Admin Dose 40 MG; Start 08/15/18 at 06:00 Cefepime HCl 50 ml @ 100 mls/hr Q24H IVPB Last administered on 08/16/18at 15:17; Admin Dose 100 MLS/HR; Start 08/16/18 at 13:15 Diphenhydramine HCl (Benadryl) 25 mg Q6H PRN PO ITCHING; Start 08/16/18 at 13:00 ZAHEER SHARIF MD Aug 17, 2018 09:43
--- NOTE | 2018-08-17 10:16 | PN ---
Date/Time of Note Date/Time of Note DATE: 08/17/18 TIME: 10:13 Assessment/Plan VTE Prophylaxis Risk score (from Ns)>0 risk: 5 SCD applied (from Nsg): Yes Pharmacological prophylaxis: other Lines/Catheters IV Catheter Type (from Nrsg): Saline Lock Urinary Cath still in place: No Assessment/Plan Hospital Course S: Patient still waiting for final result of third AFB test which is still pending, but sputum has been collected. No fevers overnight. Waiting to be seen by ID team today. Seen by renal team this morning. Spoke with daughter extensively yesterday over the phone, as well as again this morning to give update on patient's current medical status. O: Vs - see below PHYSICAL EXAMINATION: GENERAL: lying in bed, presently in isolation room, in no acute distress. HEENT: Pupils are equal, round, react to light. Extraocular muscles are intact. NECK: Supple. No thyromegaly. LUNGS: Clear to auscultation bilaterally. CARDIOVASCULAR: S1, S2 heard. No rubs or gallops. ABDOMEN: Soft, nontender, nondistended. Normal bowel sounds. No rebound or guarding. MUSCULOSKELETAL: Trace pitting edema, bilateral lower extremities to the ankles. NEUROLOGIC: No focal deficits. ASSESSMENT AND PLAN: 58-year-old male who is presenting with hyperkalemia and missing dialysis for the last 2 weeks, also rule out tuberculosis. 1. Weakness -resolving now, again likely secondary to patient not having had dialysis for the last 2 weeks prior to admission. There is also concern of pulmonary tuberculosis, as patient had prior result of QuantiFERON gold TB positive test prior to admission and his outpatient dialysis facility would not allow him to have dialysis until he was officially ruled out for active TB which she is in the process of doing now. Although again the patient denies any hemoptysis, no weight loss, no night sweats or fever or chills. AP negative x2 thus far, result of third test is in the lab and results still pending. - Continue care in isolation room for tuberculosis by checking AFBs -follow-up final results of the third AFP which again has been collected and results still pending on this. First 2 were negative. - Continue DuoNeb p.r.n. -Case management order for likely set up of home health PT and nursing per physical therapy recommendations 2. End-stage renal disease: On dialysis 3 times a week - Follow-up further renal recommendations regarding dialysis, and as well as regarding Epogen? As family has can discern some questions about the patient. 2. Hyperkalemia-resolved now- (patient initially came into the ER with potassiu m of 7.7). Again, he did receive Kayexalate, sodium bicarbonate and calcium chloride in the ER. - Continue to monitor for now. 3. History of anemia. The patient on this last admission last month was thought to have anemia likely secondary to chronic disease and chronic inflammation. Presently the hemoglobin is stable. Not on any Epogen presently. - continue to monitor for now. 4. Leukocytosis-trending down now, likely secondary to UTI. Urine culture shows greater than 100,000 ESBL E. coli urinary tract infection -Monitor CBC daily, again also being ruled out for active TB. -Continue cefepime for now, follow-up recommendations from ID consult particularly regarding which p.o. antibiotics patient can go home on 5. Gastrointestinal prophylaxis. PPI. Result Diagram: 08/17/18 0503 08/17/18 0503 Results 24hrs Laboratory Tests Test 08/17/18 05:03 White Blood Count 13.0 H Red Blood Count 3.25 L Hemoglobin 8.9 L Hematocrit 28.1 L Mean Corpuscular Volume 86.5 Mean Corpuscular Hemoglobin 27.4 L Mean Corpuscular Hemoglobin Concent 31.7 L Red Cell Distribution Width 17.9 H Platelet Count 254 Mean Platelet Volume 10.1 Immature Granulocytes % 0.800 H Neutrophils % 84.7 H Lymphocytes % 5.5 L Monocytes % 7.1 Eosinophils % 1.5 Basophils % 0.4 Nucleated Red Blood Cells % 0.0 Immature Granulocytes # 0.100 H Neutrophils # 11.0 H Lymphocytes # 0.7 L Monocytes # 0.9 Eosinophils # 0.2 Basophils # 0.1 Nucleated Red Blood Cells # 0.0 Sodium Level 131 L Potassium Level 4.9 Chloride Level 96 L Carbon Dioxide Level 22 Anion Gap 13 Blood Urea Nitrogen 59 H Creatinine 6.89 H Est Glomerular Filtrat Rate mL/min 8 L Glucose Level 99 Calcium Level 8.2 L Exam/Review of Systems Exam Vitals Vital Signs Date Temp Pulse Resp B/P (MAP) Pulse Ox O2 O2 Flow FiO2 Time Delivery Rate 08/17/18 71 08:00 08/17/18 99.2 19 128/69 100 07:40 (88) 08/15/18 Room Air 18:00 08/15/18 21 11:59 08/13/18 2 11:56 Intake and Output 08/16/18 08/16/18 08/17/18 1515:00 23:00 07:00 IntakeIntake Total 850 ml 500 ml BalanceBalance 850 ml 500 ml Results Results 24hrs Laboratory Tests Test 08/17/18 05:03 White Blood Count 13.0 H Red Blood Count 3.25 L Hemoglobin 8.9 L Hematocrit 28.1 L Mean Corpuscular Volume 86.5 Mean Corpuscular Hemoglobin 27.4 L Mean Corpuscular Hemoglobin Concent 31.7 L Red Cell Distribution Width 17.9 H Platelet Count 254 Mean Platelet Volume 10.1 Immature Granulocytes % 0.800 H Neutrophils % 84.7 H Lymphocytes % 5.5 L Monocytes % 7.1 Eosinophils % 1.5 Basophils % 0.4 Nucleated Red Blood Cells % 0.0 Immature Granulocytes # 0.100 H Neutrophils # 11.0 H Lymphocytes # 0.7 L Monocytes # 0.9 Eosinophils # 0.2 Basophils # 0.1 Nucleated Red Blood Cells # 0.0 Sodium Level 131 L Potassium Level 4.9 Chloride Level 96 L Carbon Dioxide Level 22 Anion Gap 13 Blood Urea Nitrogen 59 H Creatinine 6.89 H Est Glomerular Filtrat Rate mL/min 8 L Glucose Level 99 Calcium Level 8.2 L Medications Medication Current Medications IV Flush (NS 3 ml) 3 ml PER PROTOCOL IV ; Start 08/13/18 at 16:00 Ondansetron HCl (Zofran Inj) 4 mg Q6H PRN IV NAUSEA/VOMITING Last administered on 08/14/18at 20:45; Admin Dose 4 MG; Start 08/13/18 at 16:00 Acetaminophen (Tylenol Tab) 650 mg Q6H PRN PO .PAIN 1-3 OR TEMP Last administered on 08/14/18at 17:30; Admin Dose 650 MG; Start 08/13/18 at 16:00 Acetaminophen/ Hydrocodone Bitart ([place] (5/325)) 1 tab Q6H PRN PO .MOD PAIN 4-6; Start 08/13/18 at 16:00 Morphine Sulfate (morphine) 2 mg Q4H PRN IV .SEVERE PAIN 7-10; Start 08/13/18 at 16:00 Docusate Sodium (Colace) 100 mg Q12H PRN PO .CONSTIPATION; Start 08/13/18 at 16:00 Lorazepam (Ativan) 0.5 mg Q6H PRN IV ANXIETY; Start 08/13/18 at 16:00 Albuterol/ Ipratropium (Duoneb) 3 ml Q4H RESP THERAPY PRN HHN SHORTNESS OF BREATH; Start 08/13/18 at 16:00 Nitroglycerin (Nitroglycerin (Sl Tab) 0.4 Mg) 1 tab Q5M PRN SL ANGINA; Start 08/13/18 at 16:00 Amlodipine Besylate (Norvasc) 5 mg DAILY PO Last administered on 08/17/18 09:05; Admin Dose 5 MG; Start 08/14/18 at 09:00 Calcium Acetate (Phoslo) 1,334 mg WITH MEALS PO Last administered on 08/17/18 09:02; Admin Dose 1,334 MG; Start 08/13/18 at 18:00 Furosemide (Lasix) 40 mg DAILY PO Last administered on 08/17/18 09:02; Admin Dose 40 MG; Start 08/14/18 at 09:00 Labetalol HCl (Normodyne) 100 mg BID PO Last administered on 08/17/18 09:05; Admin Dose 100 MG; Start 08/13/18 at 21:00 Metoclopramide HCl (Reglan) 5 mg BID PRN PO NAUSEA AND/OR VOMITING; Start 08/13/18 at 16:00 Nifedipine (Procardia Xl) 30 mg DAILY PO Last administered on 08/17/18 09:05; Admin Dose 30 MG; Start 08/14/18 at 09:00 Heparin Sodium (Porcine) (Heparin (1000 Units/ml)) 3,200 unit PRN PRN CATHETER Dialysis Last administered on 08/14/18 19:18; Admin Dose 3,200 UNIT; Start 08/13/18 at 17:00 Hydralazine HCl (Apresoline) 10 mg Q6H PRN IV SBP >170 Last administered on 08/13/18 19:52; Admin Dose 10 MG; Start 08/13/18 at 18:00 Pantoprazole (Protonix Tab) 40 mg DAILY@06 PO Last administered on 4/14/19at 06:05; Admin Dose 40 MG; Start 08/15/18 at 06:00 Cefepime HCl 50 ml @ 100 mls/hr Q24H IVPB Last administered on 08/16/18at 15:17; Admin Dose 100 MLS/HR; Start 08/16/18 at 13:15 Diphenhydramine HCl (Benadryl) 25 mg Q6H PRN PO ITCHING; Start 08/16/18 at 13:00 WINSOME MATTHEWS Aug 17, 2018 10:16
--- NOTE | 2018-08-17 10:17 | CONS ---
Assessment/Plan Assessment/Plan Hospital Course (Demo Recall) ID PROGRESS NOTE CURRENT ABX: DAY # => Cefepime #1 s/p Levaquin #3 08/17/18 0503 08/17/18 0503 24H INTERVAL SUMMARY * Overall improved -- sent by HD center to r/o ACTIVE TB per (+)QTFG serology w/hx of weight loss over past 6 mos w/mild cough, hx of PNA pulm nodules, however NO hemoptysis, no fevers, no night sweats. * AFB sputum (-)SMEARS x 3 sample == cleared for DC from TB isolation precautions * SIRS tp GNR E.Coli ESBL UTI -- started on Cefepime -- may DC home on GENT to be given at HD unit post HD until last day 08/18/18 * A/A/O, VSS, NAD, cachectic M, ambulatory in room -- feels better DIAGNOSTIC IMAGING * 08/13/18 CXR: IMPRESSION:Mild cardiomegaly with pulmonary vascular congestion. MICRO/OTHER * Quantiferon TB Gold test was reported positive -- No evidence of active TB * 08/15/18 AFB SMEAR (-) AFB SMEAR Final ACID FAST BACILLI NONE SEEN * 08/14/18 AFB SMEAR (-) AFB SMEAR Final ACID FAST BACILLI NONE SEEN * 08/13/18 AFB SMEAR (-) AFB SMEAR Final ACID FAST BACILLI NONE SEEN * 08/13/18 (-)MRSA Nares * 08/14/18 Urine Cx (-) URINE CULTURE Final Organism 1 ESCHERICHIA COLI (ESBL) COLONY COUNT >100,000 CFU/ml . MULTI DRUG RESISTANT ORGANISM ECOLI ESBL ECOLI ESBL M.I.C. RX M.I.C. RX --------- --- --------- --- AMIKACIN 8 S AMPICILLIN >=32 R CEFAZOLIN R CEFEPIME 8 S CEFOTAXIME R CIPROFLOXACIN >=4 R GENTAMICIN <=1 S LEVOFLOXACIN >=8 R MEROPENEM 0.023 S NITROFURANTOIN <=16 S TOBRAMYCIN >=16 R TRIMETHOPRIM/SULFAMETHOXAZOLE >=320 R PIPERACILLIN/TAZOBACTAM 8 S * 08/13/18 BCx (-) * C.DIFF (-) PHYSICAL EXAMINATION: GENERAL: VSS, NAD, cachectic M HEENT: AT, NC, anicteric, NECK: Supple, CHEST: Equal chest rise bilaterally, without dyspnea on observation HEART: Pulse RRR ABDOMEN: Soft / NT EXTREMITIES: Warm, dry SKIN: No rash, no diaphoresis ID ASSESSMENT 58 yo M admit with: SIRS w/low grade Tmax 99.3, Leukocytosis due to ESBL UTI Complicated GNR UTI = 08/14/18 Urine Cx (-) URINE CULTURE Final Organism 1 ESCHERICHIA COLI (ESBL) COLONY COUNT >100,000 CFU/ml . MULTI DRUG RESISTANT ORGANISM ESRD on HD HTN Pulmonary edema normal LVF on ECHO = fluid overload + suspected portal HTN Liver cirrhosis- Small amount of ascites on CT/anasarca * Direct hyperbilirubinemia * LDH and low haptoglobin may be due to the liver inflammation +- hepatorenal disease * Vitamin b12 and folate are normal * MRCP neg for CBD obstruction Normocytic anemia * Anemia:iron studies are consistent with anemia of chronic inflammation Thrombocytosis Lateral pulmonary nodules Quantiferon TB Gold test was reported positive -- No evidence of active TB respiratory symptoms * 08/15/18 AFB SMEAR (-) AFB SMEAR Final ACID FAST BACILLI NONE SEEN * 08/14/18 AFB SMEAR (-) AFB SMEAR Final ACID FAST BACILLI NONE SEEN * 08/13/18 AFB SMEAR (-) AFB SMEAR Final ACID FAST BACILLI NONE SEEN Hx of GERD w/ Chronic N/V Recent Diarrhea chronic x 6 months -> (-) C.Diff prior admission == No significant diarrhea this admission 60lb weight loss over 6 months -EGD/colonoscopy May 2018 -normal exam @ prior facility ([facility]?) * Tumor markers are negative ABX ALLERGIES: PCN INVASIVES: CURRENT ABX: DAY # => Cefepime #1 s/p Levaquin #3 ID RECOMMENDATIONS/PLAN: 1. Patient may DC on GENTAMICIN 80 mg IV post each HD until last day 08/28/18 * DC Cefepime upon discharge 2. No evidence of ACTIVE TB -- he can be referred OP to pulmonary for consideration of INH x 9mos Rx for Latent TB . Consultation Date/Type/Reason Admit Date/Time Aug 13, 2018 at 13:17 Initial Consult Date 08/13/18 Date/Time of Note DATE: 08/17/18 TIME: 10:17 Exam/Review of Systems Exam Vitals Vital Signs Date Temp Pulse Resp B/P (MAP) Pulse Ox O2 O2 Flow FiO2 Time Delivery Rate 08/17/18 71 08:00 08/17/18 99.2 19 128/69 100 07:40 (88) 08/15/18 Room Air 18:00 08/15/18 21 11:59 08/13/18 2 11:56 Intake and Output 08/16/18 08/16/18 08/17/18 1515:00 23:00 07:00 IntakeIntake Total 850 ml 500 ml BalanceBalance 850 ml 500 ml Results Result Diagram: 08/17/18 0503 08/17/18 0503 Results 24hrs Laboratory Tests Test 08/17/18 05:03 White Blood Count 13.0 H Red Blood Count 3.25 L Hemoglobin 8.9 L Hematocrit 28.1 L Mean Corpuscular Volume 86.5 Mean Corpuscular Hemoglobin 27.4 L Mean Corpuscular Hemoglobin Concent 31.7 L Red Cell Distribution Width 17.9 H Platelet Count 254 Mean Platelet Volume 10.1 Immature Granulocytes % 0.800 H Neutrophils % 84.7 H Lymphocytes % 5.5 L Monocytes % 7.1 Eosinophils % 1.5 Basophils % 0.4 Nucleated Red Blood Cells % 0.0 Immature Granulocytes # 0.100 H Neutrophils # 11.0 H Lymphocytes # 0.7 L Monocytes # 0.9 Eosinophils # 0.2 Basophils # 0.1 Nucleated Red Blood Cells # 0.0 Sodium Level 131 L Potassium Level 4.9 Chloride Level 96 L Carbon Dioxide Level 22 Anion Gap 13 Blood Urea Nitrogen 59 H Creatinine 6.89 H Est Glomerular Filtrat Rate mL/min 8 L Glucose Level 99 Calcium Level 8.2 L Medications Medication Current Medications IV Flush (NS 3 ml) 3 ml PER PROTOCOL IV ; Start 08/13/18 at 16:00 Ondansetron HCl (Zofran Inj) 4 mg Q6H PRN IV NAUSEA/VOMITING Last administered on 08/14/18at 20:45; Admin Dose 4 MG; Start 08/13/18 at 16:00 Acetaminophen (Tylenol Tab) 650 mg Q6H PRN PO .PAIN 1-3 OR TEMP Last administered on 08/14/18at 17:30; Admin Dose 650 MG; Start 08/13/18 at 16:00 Acetaminophen/ Hydrocodone Bitart ([place] (5/325)) 1 tab Q6H PRN PO .MOD PAIN 4- 6; Start 08/13/18 at 16:00 Morphine Sulfate (morphine) 2 mg Q4H PRN IV .SEVERE PAIN 7-10; Start 08/13/18 at 16:00 Docusate Sodium (Colace) 100 mg Q12H PRN PO .CONSTIPATION; Start 08/13/18 at 16:00 Lorazepam (Ativan) 0.5 mg Q6H PRN IV ANXIETY; Start 08/13/18 at 16:00 Albuterol/ Ipratropium (Duoneb) 3 ml Q4H RESP THERAPY PRN HHN SHORTNESS OF BREATH; Start 08/13/18 at 16:00 Nitroglycerin (Nitroglycerin (Sl Tab) 0.4 Mg) 1 tab Q5M PRN SL ANGINA; Start 08/13/18 at 16:00 Amlodipine Besylate (Norvasc) 5 mg DAILY PO Last administered on 08/17/18 09:05; Admin Dose 5 MG; Start 08/14/18 at 09:00 Calcium Acetate (Phoslo) 1,334 mg WITH MEALS PO Last administered on 08/17/18 09:02; Admin Dose 1,334 MG; Start 08/13/18 at 18:00 Furosemide (Lasix) 40 mg DAILY PO Last administered on 08/17/18 09:02; Admin Dose 40 MG; Start 08/14/18 at 09:00 Labetalol HCl (Normodyne) 100 mg BID PO Last administered on 08/17/18 09:05; Admin Dose 100 MG; Start 08/13/18 at 21:00 Metoclopramide HCl (Reglan) 5 mg BID PRN PO NAUSEA AND/OR VOMITING; Start 08/13/18 at 16:00 Nifedipine (Procardia Xl) 30 mg DAILY PO Last administered on 08/17/18 09:05; Admin Dose 30 MG; Start 08/14/18 at 09:00 Heparin Sodium (Porcine) (Heparin (1000 Units/ml)) 3,200 unit PRN PRN CATHETER Dialysis Last administered on 08/14/18 19:18; Admin Dose 3,200 UNIT; Start 08/13/18 at 17:00 Hydralazine HCl (Apresoline) 10 mg Q6H PRN IV SBP >170 Last administered on 08/13/18 19:52; Admin Dose 10 MG; Start 08/13/18 at 18:00 Pantoprazole (Protonix Tab) 40 mg DAILY@06 PO Last administered on 08/17/18at 06:05; Admin Dose 40 MG; Start 08/15/18 at 06:00 Cefepime HCl 50 ml @ 100 mls/hr Q24H IVPB Last administered on 08/16/18 15:17 ; Admin Dose 100 MLS/HR; Start 08/16/18 at 13:15 Diphenhydramine HCl (Benadryl) 25 mg Q6H PRN PO ITCHING; Start 08/16/18 at 13:00 ANTHONY DICKEY NP Aug 17, 2018 10:17
[2018-08-17] MEDS ORDERED: GENTAMICIN IV PER PHARMACY XX SCH (11:30)
[2018-08-17] MEDS ORDERED: GENTAMICIN 100 MG/50 ML NS IVPB SCH (13:00)
[2018-08-17] MEDS: CEFEPIME 1GM/50 ML (PMX) 50 ML IVPB SCH (15:20)
[2018-08-17] MEDS: ONDANSETRON 4 MG INJ IV PRN (15:54)
[2018-08-18] VITALS (25 sets, daily range): BP systolic 113–176; BP diastolic 62–80; PULSE 62–78; RESP 18–20
[2018-08-18] MEDS: PANTOPRAZOLE (EC) 40 MG TAB PO SCH (06:05)
[2018-08-18] MEDS: CALCIUM ACETATE 667 MG CAP PO SCH ×3 (08:00→18:52)
[2018-08-18] MEDS: AMLODIPINE 5 MG TAB PO SCH ×2 (09:00→13:38)
[2018-08-18] MEDS ORDERED: GENTAMICIN 60 MG in SOD CHLORIDE 0.9% 50 ML IVPB SCH (09:00)
[2018-08-18] MEDS: LABETALOL 100 MG TAB PO SCH ×3 (09:00→20:25)
[2018-08-18] MEDS: NIFEdipine (XL) 30 MG TAB PO SCH ×2 (09:00→13:39)
[2018-08-18] MEDS: FUROSEMIDE 40 MG TAB PO SCH ×2 (09:00→13:39)
[2018-08-18] MEDS: HEPARIN 1000 UNITS/ML 10 ML INJ CATHETER PRN (11:45)
--- NOTE | 2018-08-18 15:14 | CONS ---
Assessment/Plan Assessment/Plan Hospital Course (Demo Recall) 1300 No acute changes overnight patient is alert eating lunch looks comfortable, afebrile, family at bedside. WBC 13.7 platelets 276 BUN 70 creatinine 7.85 Microbiology: Urine culture on August 14 grew E. coli ESBL Chest x-ray on admission revealed pulmonary vascular congestion Allergy penicillin and amoxicillin Physical examination: This is a chronically ill-appearing wasted middle-aged man who is alert in no distress. Head atraumatic normocephalic neck is supple chest rise symmetrical breath sounds diminished bases. Heart: S1-S2. Abdomen soft bowel sounds present. Extremities without cyanosis. Assessment: 1. Systemic inflammatory response syndrome 2. Urinary tract infection on admission 3. End-stage renal disease, hemodialysis dependent 4. Liver cirrhosis 5. History of latent TB, sputum for AFB 3 sets negative Plan: Patient remained stable, overall doing much better, continue present care Consultation Date/Type/Reason Admit Date/Time Aug 13, 2018 at 13:17 Initial Consult Date 08/13/18 Type of Consult id Date/Time of Note DATE: 08/18/18 TIME: 15:13 Exam/Review of Systems Exam Vitals Vital Signs Date Temp Pulse Resp B/P (MAP) Pulse Ox O2 O2 Flow FiO2 Time Delivery Rate 08/18/18 98.0 67 20 170/68 98 15:07 (102) 08/18/18 Room Air 08:00 08/15/18 21 11:59 Intake and Output 08/17/18 08/17/18 08/18/18 1515:00 23:00 07:00 IntakeIntake Total 720 ml 480 ml BalanceBalance 720 ml 480 ml Results Result Diagram: 08/18/18 0504 08/18/18 0504 Results 24hrs Laboratory Tests Test 08/18/18 05:04 White Blood Count 13.7 H Red Blood Count 3.28 L Hemoglobin 9.1 L Hematocrit 28.0 L Mean Corpuscular Volume 85.4 Mean Corpuscular Hemoglobin 27.7 L Mean Corpuscular Hemoglobin Concent 32.5 Red Cell Distribution Width 17.5 H Platelet Count 276 Mean Platelet Volume 10.7 H Immature Granulocytes % 0.600 H Neutrophils % 84.6 H Lymphocytes % 5.6 L Monocytes % 6.9 Eosinophils % 2.0 Basophils % 0.3 Nucleated Red Blood Cells % 0.0 Immature Granulocytes # 0.080 H Neutrophils # 11.6 H Lymphocytes # 0.8 Monocytes # 0.9 Eosinophils # 0.3 Basophils # 0.0 Nucleated Red Blood Cells # 0.0 Sodium Level 131 L Potassium Level 5.1 Chloride Level 95 L Carbon Dioxide Level 22 Anion Gap 14 H Blood Urea Nitrogen 70 H Creatinine 7.85 H Est Glomerular Filtrat Rate mL/min 7 L Glucose Level 74 Calcium Level 7.9 L Medications Medication Current Medications IV Flush (NS 3 ml) 3 ml PER PROTOCOL IV ; Start 08/13/18 at 16:00 Ondansetron HCl (Zofran Inj) 4 mg Q6H PRN IV NAUSEA/VOMITING Last administered on 08/17/18at 15:54; Admin Dose 4 MG; Start 08/13/18 at 16:00 Acetaminophen (Tylenol Tab) 650 mg Q6H PRN PO .PAIN 1-3 OR TEMP Last administered on 08/14/18at 17:30; Admin Dose 650 MG; Start 08/13/18 at 16:00 Acetaminophen/ Hydrocodone Bitart ([place] (5/325)) 1 tab Q6H PRN PO .MOD PAIN 4- 6; Start 08/13/18 at 16:00 Morphine Sulfate (morphine) 2 mg Q4H PRN IV .SEVERE PAIN 7-10; Start 08/13/18 at 16:00 Docusate Sodium (Colace) 100 mg Q12H PRN PO .CONSTIPATION; Start 08/13/18 at 16:00 Lorazepam (Ativan) 0.5 mg Q6H PRN IV ANXIETY; Start 08/13/18 at 16:00 Albuterol/ Ipratropium (Duoneb) 3 ml Q4H RESP THERAPY PRN HHN SHORTNESS OF BREATH; Start 08/13/18 at 16:00 Nitroglycerin (Nitroglycerin (Sl Tab) 0.4 Mg) 1 tab Q5M PRN SL ANGINA; Start 08/13/18 at 16:00 Amlodipine Besylate (Norvasc) 5 mg DAILY PO Last administered on 08/18/18at 13:38; Admin Dose 5 MG; Start 08/14/18 at 09:00 Calcium Acetate (Phoslo) 1,334 mg WITH MEALS PO Last administered on 08/18/18at 13:34; Admin Dose 1,334 MG; Start 08/13/18 at 18:00 Furosemide (Lasix) 40 mg DAILY PO Last administered on 08/18/18 13:39; Admin Dose 40 MG; Start 08/14/18 at 09:00 Labetalol HCl (Normodyne) 100 mg BID PO Last administered on 08/18/18 13:38; Admin Dose 100 MG; Start 08/13/18 at 21:00 Metoclopramide HCl (Reglan) 5 mg BID PRN PO NAUSEA AND/OR VOMITING; Start 08/13/18 at 16:00 Nifedipine (Procardia Xl) 30 mg DAILY PO Last administered on 08/18/18 13:39; Admin Dose 30 MG; Start 08/14/18 at 09:00 Heparin Sodium (Porcine) (Heparin (1000 Units/ml)) 3,200 unit PRN PRN CATHETER Dialysis Last administered on 08/18/18 11:45; Admin Dose 3,200 UNIT; Start 08/04 at 17:00 Hydralazine HCl (Apresoline) 10 mg Q6H PRN IV SBP >170 Last administered on 08/13/18 19:52; Admin Dose 10 MG; Start 08/13/18 at 18:00 Pantoprazole (Protonix Tab) 40 mg DAILY@06 PO Last administered on 08/18/18 06:05; Admin Dose 40 MG; Start 08/15/18 at 06:00 Diphenhydramine HCl (Benadryl) 25 mg Q6H PRN PO ITCHING; Start 08/16/18 at 13:00 STELLA MEZA NP Aug 18, 2018 15:14
--- NOTE | 2018-08-18 17:18 | PN ---
Date/Time of Note Date/Time of Note DATE: 08/18/18 TIME: 17:14 Assessment/Plan VTE Prophylaxis Risk score (from Ns)>0 risk: 5 SCD applied (from Ns): Yes Pharmacological prophylaxis: NA/contraindicated Pharm contraindication: low risk/ambulating Lines/Catheters [facility] [place] Urinary Cath still in place: No Assessment/Plan Assessment/Plan 58-year-old male who is presenting with hyperkalemia and missing dialysis for the last 2 weeks, also rule out tuberculosis. # Weakness -resolving now, again likely secondary to patient not having had dialysis for the last 2 weeks prior to admission. There is also concern of pulmonary tubercul osis, as patient had prior result of QuantiFERON gold TB positive test prior to admission and his outpatient dialysis facility would not allow him to have dialysis until he was officially ruled out for active TB which she is in the process of doing now. Although again the patient denies any hemoptysis, no weight loss, no night sweats or fever or chills. AP negative x3. - Continue DuoNeb p.r.n. -Case management order for likely set up of home health PT and nursing per physical therapy recommendations #Bacteruria - Urine culture shows greater than 100,000 ESBL E. coli - Per patient's , he has been frequently admitted to different hospitals and has had prolonged antibiotic courses since April. - Patient denies any urinary symptoms. - I believe this likely represents asymptomatic colonization and that antibiotics may be causing more harm than benefit in this patient. - Will hold off on antibiotics and continue to monitor. # Leukocytosis-trending down now # End-stage renal disease: On dialysis 3 times a week - Follow-up further renal recommendations regarding dialysis, and as well as regarding Epogen? As family has can discern some questions about the patient. # Hyperkalemia-resolved now- (patient initially came into the ER with potassium of 7.7). Again, he did receive Kayexalate, sodium bicarbonate and calcium chloride in the ER. - Continue to monitor for now. # History of anemia. The patient on this last admission last month was thought to have anemia likely secondary to chronic disease and chronic inflammation. Presently the hemoglobin is stable. Not on any Epogen presently. - continue to monitor for now. # Gastrointestinal prophylaxis. PPI. Result Diagram: 08/18/18 0504 08/18/18 0504 Subjective 24 Hr Interval Summary Free Text/Dictation The patient's is concerned that he is still very weak and has poor appetite. Patient has had watery diarrhea today since finishing dialysis. Exam/Review of Systems Exam Vitals Vital Signs Date Temp Pulse Resp B/P (MAP) Pulse Ox O2 O2 Flow FiO2 Time Delivery Rate 08/18/18 66 16:01 08/18/18 98.0 20 170/68 98 15:07 (102) 08/18/18 Room Air 08:00 08/15/18 21 11:59 Intake and Output 08/17/18 08/17/18 08/18/18 1515:00 23:00 07:00 IntakeIntake Total 720 ml 480 ml BalanceBalance 720 ml 480 ml Exam GENERAL: lying in bed, presently in isolation room, in no acute distress. HEENT: Pupils are equal, round, react to light. Extraocular muscles are intact. NECK: Supple. No thyromegaly. LUNGS: Clear to auscultation bilaterally. CARDIOVASCULAR: S1, S2 heard. No rubs or gallops. ABDOMEN: Soft, nontender, nondistended. Normal bowel sounds. No rebound or guarding. MUSCULOSKELETAL: Trace pitting edema, bilateral lower extremities to the ankles. Results Results 24hrs Laboratory Tests Test 08/18/18 05:04 White Blood Count 13.7 H Red Blood Count 3.28 L Hemoglobin 9.1 L Hematocrit 28.0 L Mean Corpuscular Volume 85.4 Mean Corpuscular Hemoglobin 27.7 L Mean Corpuscular Hemoglobin Concent 32.5 Red Cell Distribution Width 17.5 H Platelet Count 276 Mean Platelet Volume 10.7 H Immature Granulocytes % 0.600 H Neutrophils % 84.6 H Lymphocytes % 5.6 L Monocytes % 6.9 Eosinophils % 2.0 Basophils % 0.3 Nucleated Red Blood Cells % 0.0 Immature Granulocytes # 0.080 H Neutrophils # 11.6 H Lymphocytes # 0.8 Monocytes # 0.9 Eosinophils # 0.3 Basophils # 0.0 Nucleated Red Blood Cells # 0.0 Sodium Level 131 L Potassium Level 5.1 Chloride Level 95 L Carbon Dioxide Level 22 Anion Gap 14 H Blood Urea Nitrogen 70 H Creatinine 7.85 H Est Glomerular Filtrat Rate mL/min 7 L Glucose Level 74 Calcium Level 7.9 L Medications Medication Current Medications IV Flush (NS 3 ml) 3 ml PER PROTOCOL IV ; Start 08/13/18 at 16:00 Ondansetron HCl (Zofran Inj) 4 mg Q6H PRN IV NAUSEA/VOMITING Last administered on 08/17/18at 15:54; Admin Dose 4 MG; Start 08/13/18 at 16:00 Acetaminophen (Tylenol Tab) 650 mg Q6H PRN PO .PAIN 1-3 OR TEMP Last administered on 08/14/18at 17:30; Admin Dose 650 MG; Start 08/13/18 at 16:00 Acetaminophen/ Hydrocodone Bitart ([place] (5/325)) 1 tab Q6H PRN PO .MOD PAIN 4- 6; Start 08/13/18 at 16:00 Morphine Sulfate (morphine) 2 mg Q4H PRN IV .SEVERE PAIN 7-10; Start 08/13/18 at 16:00 Docusate Sodium (Colace) 100 mg Q12H PRN PO .CONSTIPATION; Start 08/13/18 at 16:00 Lorazepam (Ativan) 0.5 mg Q6H PRN IV ANXIETY; Start 08/13/18 at 16:00 Albuterol/ Ipratropium (Duoneb) 3 ml Q4H RESP THERAPY PRN HHN SHORTNESS OF BREATH; Start 08/13/18 at 16:00 Nitroglycerin (Nitroglycerin (Sl Tab) 0.4 Mg) 1 tab Q5M PRN SL ANGINA; Start 08/13/18 at 16:00 Amlodipine Besylate (Norvasc) 5 mg DAILY PO Last administered on 08/18/18at 13:38; Admin Dose 5 MG; Start 08/14/18 at 09:00 Calcium Acetate (Phoslo) 1,334 mg WITH MEALS PO Last administered on 08/18/18 13:34; Admin Dose 1,334 MG; Start 08/13/18 at 18:00 Furosemide (Lasix) 40 mg DAILY PO Last administered on 08/18/18 13:39; Admin Dose 40 MG; Start 08/14/18 at 09:00 Labetalol HCl (Normodyne) 100 mg BID PO Last administered on 08/18/18at 13:38; Admin Dose 100 MG; Start 08/13/18 at 21:00 Metoclopramide HCl (Reglan) 5 mg BID PRN PO NAUSEA AND/OR VOMITING; Start 08/13/18 at 16:00 Nifedipine (Procardia Xl) 30 mg DAILY PO Last administered on 08/18/18 13:39; Admin Dose 30 MG; Start 08/14/18 at 09:00 Heparin Sodium (Porcine) (Heparin (1000 Units/ml)) 3,200 unit PRN PRN CATHETER Dialysis Last administered on 08/18/18 11:45; Admin Dose 3,200 UNIT; Start 08/13/18 at 17:00 Hydralazine HCl (Apresoline) 10 mg Q6H PRN IV SBP >170 Last administered on 08/13/18at 19:52; Admin Dose 10 MG; Start 08/13/18 at 18:00 Pantoprazole (Protonix Tab) 40 mg DAILY@06 PO Last administered on 08/18/18at 06:05; Admin Dose 40 MG; Start 08/15/18 at 06:00 Diphenhydramine HCl (Benadryl) 25 mg Q6H PRN PO ITCHING; Start 08/16/18 at 13:00 ANNALISA RIZZO MD Aug 18, 2018 17:18
[2018-08-18] MEDS: hydrALAzine 20 MG INJ IV PRN (23:41)
[2018-08-19] VITALS (11 sets, daily range): BP systolic 100–184; BP diastolic 58–81; PULSE 62–82; RESP 15–20
[2018-08-19] MEDS: PANTOPRAZOLE (EC) 40 MG TAB PO SCH (06:15)
[2018-08-19] MEDS: CALCIUM ACETATE 667 MG CAP PO SCH ×2 (08:26→11:54)
[2018-08-19] MEDS: FUROSEMIDE 40 MG TAB PO SCH (08:29)
[2018-08-19] MEDS: LABETALOL 100 MG TAB PO SCH (08:30)
[2018-08-19] MEDS: AMLODIPINE 5 MG TAB PO SCH (08:30)
[2018-08-19] MEDS: NIFEdipine (XL) 30 MG TAB PO SCH (08:31)
--- NOTE | 2018-08-19 11:31 | PDOCDIS ---
Discharge Instructions DIAGNOSIS Discharge Diagnosis Tuberculosis rule-out Asymptomatic bacteruria CONDITION [id number] Patient Condition: [id number] Good HOME CARE INSTRUCTIONS: [id number] Diet Instructions: [id number] Regular ACTIVITY: [id number] Activity Restrictions: [id number] No Restrictions FOLLOW UP/APPOINTMENTS Follow-up Plan 1. Take all mediations as prescribed. 2. Continue dialysis as scheduled 3. See your primary care doctor in 1-2 weeks. ANNALISA RIZZO MD Aug 19, 2018 11:31
--- NOTE | 2018-08-19 13:29 | CONS ---
Assessment/Plan Assessment/Plan Hospital Course (Demo Recall) Alert feels good looks comfortable no fevers overnight WBC 13.3 neutrophils 85.6. Patient is off antibiotics. Indwelling: Right chest permacath. Microbiology: Urine culture on August 14 grew E. coli ESBL Chest x-ray on admission revealed pulmonary vascular congestion Allergy penicillin and amoxicillin Physical examination: This is a chronically ill-appearing wasted middle-aged man who is alert in no distress. Head atraumatic normocephalic neck is supple chest rise symmetrical breath sounds diminished bases. Heart: S1-S2. Abdomen soft bowel sounds present. Extremities without cyanosis. Assessment: 1. Systemic inflammatory response syndrome 2. Urinary tract infection, treated 3. End-stage renal disease, hemodialysis dependent 4. Liver cirrhosis 5. History of latent TB, sputum for AFB 3 sets negative Plan: Patient remained stable, continue present care Consultation Date/Type/Reason Admit Date/Time Aug 13, 2018 at 13:17 Initial Consult Date 08/13/18 Type of Consult id Date/Time of Note DATE: 08/19/18 TIME: 13:29 Exam/Review of Systems Exam Vitals Vital Signs Date Temp Pulse Resp B/P (MAP) Pulse Ox O2 O2 Flow FiO2 Time Delivery Rate 08/19/18 98.3 69 20 130/63 96 Room Air 12:08 (85) 08/19/18 21 01:36 Intake and Output 08/18/18 08/18/18 08/19/18 1414:59 22:59 06:59 IntakeIntake Total 900 ml 250 ml OutputOutput Total 2600 ml 3000 ml BalanceBalance -2600 ml -2100 ml 250 ml Results Result Diagram: 08/19/18 0544 08/19/18 0544 Results 24hrs Laboratory Tests Test 08/19/18 05:44 White Blood Count 13.3 H Red Blood Count 3.73 L Hemoglobin 10.2 L Hematocrit 32.2 L Mean Corpuscular Volume 86.3 Mean Corpuscular Hemoglobin 27.3 L Mean Corpuscular Hemoglobin Concent 31.7 L Red Cell Distribution Width 17.6 H Platelet Count 283 Mean Platelet Volume 10.1 Immature Granulocytes % 0.500 H Neutrophils % 85.6 H Lymphocytes % 4.2 L Monocytes % 7.0 Eosinophils % 2.4 Basophils % 0.3 Nucleated Red Blood Cells % 0.0 Immature Granulocytes # 0.060 H Neutrophils # 11.4 H Lymphocytes # 0.6 L Monocytes # 0.9 Eosinophils # 0.3 Basophils # 0.0 Nucleated Red Blood Cells # 0.0 Sodium Level 134 L Potassium Level 4.3 Chloride Level 95 L Carbon Dioxide Level 31 Anion Gap 8 Blood Urea Nitrogen 37 #H Creatinine 4.93 #H Est Glomerular Filtrat Rate mL/min 12 L Glucose Level 74 Calcium Level 7.7 L Medications Medication Current Medications IV Flush (NS 3 ml) 3 ml PER PROTOCOL IV ; Start 08/13/18 at 16:00 Ondansetron HCl (Zofran Inj) 4 mg Q6H PRN IV NAUSEA/VOMITING Last administered on 08/17/18at 15:54; Admin Dose 4 MG; Start 08/13/18 at 16:00 Acetaminophen (Tylenol Tab) 650 mg Q6H PRN PO .PAIN 1-3 OR TEMP Last administered on 08/14/18at 17:30; Admin Dose 650 MG; Start 08/13/18 at 16:00 Acetaminophen/ Hydrocodone Bitart ([place] (5/325)) 1 tab Q6H PRN PO .MOD PAIN 4- 6; Start 08/13/18 at 16:00 Morphine Sulfate (morphine) 2 mg Q4H PRN IV .SEVERE PAIN 7-10; Start 08/13/18 at 16:00 Docusate Sodium (Colace) 100 mg Q12H PRN PO .CONSTIPATION; Start 08/13/18 at 16:00 Lorazepam (Ativan) 0.5 mg Q6H PRN IV ANXIETY; Start 08/13/18 at 16:00 Albuterol/ Ipratropium (Duoneb) 3 ml Q4H RESP THERAPY PRN HHN SHORTNESS OF BREATH; Start 08/13/18 at 16:00 Nitroglycerin (Nitroglycerin (Sl Tab) 0.4 Mg) 1 tab Q5M PRN SL ANGINA; Start 08/13/18 at 16:00 Amlodipine Besylate (Norvasc) 5 mg DAILY PO Last administered on 08/19/18at 08:30; Admin Dose 5 MG; Start 08/14/18 at 09:00 Calcium Acetate (Phoslo) 1,334 mg WITH MEALS PO Last administered on 08/19/18at 11:54; Admin Dose 1,334 MG; Start 08/13/18 at 18:00 Furosemide (Lasix) 40 mg DAILY PO Last administered on 08/19/18 08:29; Admin Dose 40 MG; Start 08/14/18 at 09:00 Labetalol HCl (Normodyne) 100 mg BID PO Last administered on 08/19/18 08:30; Admin Dose 100 MG; Start 08/13/18 at 21:00 Metoclopramide HCl (Reglan) 5 mg BID PRN PO NAUSEA AND/OR VOMITING; Start 08/13/18 at 16:00 Nifedipine (Procardia Xl) 30 mg DAILY PO Last administered on 08/19/18 08:31; Admin Dose 30 MG; Start 08/14/18 at 09:00 Heparin Sodium (Porcine) (Heparin (1000 Units/ml)) 3,200 unit PRN PRN CATHETER Dialysis Last administered on 08/18/18 11:45; Admin Dose 3,200 UNIT; Start 08/13/18 at 17:00 Hydralazine HCl (Apresoline) 10 mg Q6H PRN IV SBP >170 Last administered on 08/18/18at 23:41; Admin Dose 10 MG; Start 08/13/18 at 18:00 Pantoprazole (Protonix Tab) 40 mg DAILY@06 PO Last administered on 08/19/18 06:15; Admin Dose 40 MG; Start 08/15/18 at 06:00 Diphenhydramine HCl (Benadryl) 25 mg Q6H PRN PO ITCHING; Start 08/16/18 at 13:00 STELLA MEZA NP Aug 19, 2018 13:29
--- NOTE | 2018-08-19 15:55 | DS ---
Date/Time of Note Date/Time of Note DATE: 08/19/18 TIME: 15:51 Discharge Summary Admission/Discharge Info Admit Date/Time Aug 13, 2018 at 13:17 Discharge Date/Time Aug 19, 2018 Discharge Diagnosis Tuberculosis rule-out Asymptomatic bacteruria Patient Condition: Fair Consults Dr. Daigle, nephrology Dr. Watts, infectious disease Procedures None Hx of Present Illness HISTORY OF PRESENT ILLNESS: A 58-year-old male with past medical history of end-stage renal disease on dialysis, although he is not on dialysis for the last 2 weeks, prior history of anemia, who comes in with some body weakness and decreased ability to walk. The patient also states he has not had dialysis for the last 2 weeks. There was a concerned that patient may be having tuberculosis, although he denies any cough or fevers. No weight loss. No hemoptysis. No recent travels. Apparently, he is not able to get dialysis for the last 2 weeks because the dialysis center may want to rule him out for TB, so he decided to come in and when he arrived to the ER today, he was found with white blood cell count of 19,000. His potassium was 7.7 in the ER and he was given Kayexalate, sodium bicarbonate and calcium chloride to help treat the hyperkalemia. The patient however did not have any signs of any ST changes on his EKG or any signs of any peaked T-waves. Denies upper or lower GI bleeding. No diarrhea or constipation. No shortness of breath, no chest pain, no nausea o r vomiting. His creatinine today was also found to be 12.69. Of note, the patient was last here at our hospital from 07/26/2018 to 07/29/2018. At that time, he was treated for anemia. PAST MEDICAL HISTORY: As stated above. ALLERGIES: 1. PENICILLIN. 2. AMOXICILLIN. HOME MEDICATIONS: Based on records: 1. Norvasc 5 mg daily. 2. Labetalol 100 mg b.i.d. 3. Lisinopril 20 mg daily. 4. Nifedipine ER 30 mg daily. 5. Calcium acetate 1334 mg with meals. 6. Lasix 40 mg daily. 7. Loperamide 2 mg with meals. 8. Reglan 5 mg b.i.d. p.r.n. PAST SURGICAL HISTORY: PermCath placement in the past. SOCIAL HISTORY: Negative for smoking, drinking or IV drug abuse. FAMILY HISTORY: Noncontributory. Hospital Course The patient was admitted to airborne isolation for TB ruleout. Three induced sputum samples were collected eight hours apart, all were negative for acid fast bacilli. Airborne isolation discontinued. Urinalysis and culture were also sent for unclear reasons; patient had no dysuria or other urinary symptoms. Urine culture positive for ESBL E Coli. Apparently he has been on antibiotics with dialysis every session for months, according to the . In this context I believe asymptomatic colonization is more likely; and antibiotics were discontinued. The patient was seen by physical therapy and able to ambulate without assistance. In addition he got regularly scheduled dialysis while inpatient. Plan to discharge home to . Home Meds Reported Medications Metoclopramide Hcl* (Metoclopramide Hcl*) 5 Mg Tablet, 5 MG PO BID PRN for NAUSEA AND OR VOMITING, TAB 08/13/18 Furosemide* (Furosemide*) 40 Mg Tablet, 40 MG PO DAILY, TAB 08/13/18 Loperamide Hcl* (Loperamide Hcl*) 2 Mg Cap, 2 MG PO WITH MEALS, CAP 08/13/18 Lisinopril* (Lisinopril*) 20 Mg Tablet, 20 MG PO DAILY, #30 TAB 08/13/18 Calcium Acetate* (Calcium Acetate*) 667 Mg Capsule, 1334 MG PO WITH MEALS, #90 CAP 07/24/18 Nifedipine* (Nifedipine ER*) 30 Mg Tablet.sa, 30 MG PO DAILY, TAB.SA 07/24/18 Labetalol Hcl* (Labetalol Hcl*) 100 Mg Tablet, 100 MG PO BID, TAB 07/24/18 Amlodipine Besylate* (Norvasc*) 5 Mg Tablet, 5 MG PO DAILY, TAB 07/24/18 Discontinued Reported Medications Furosemide* (Furosemide*) 80 Mg Tablet, 80 MG PO BID, #60 TAB 07/24/18 Discontinued Scripts Loperamide Hcl* (Loperamide Hcl*) 2 Mg Cap, 2 MG PO QID PRN for DIARRHEA for 5 Days, #20 CAP Prov:TREVOR POLLACK MD 07/29/18 Follow-up Plan 1. Take all mediations as prescribed. 2. Continue dialysis as scheduled 3. See your primary care doctor in 1-2 weeks. Primary Care Provider Not On Staff Doctor Time spent on discharge: > 30 minutes Pending Labs Laboratory Tests Test 08/19/18 05:44 White Blood Count 13.3 10^3/ul (4.8-10.8) Red Blood Count 3.73 10^6/ul (4.70-6.10) Hemoglobin 10.2 g/dl (14.0-18.0) Hematocrit 32.2 % (42.0-52.0) Mean Corpuscular Volume 86.3 fl (82.0-101.0) Mean Corpuscular Hemoglobin 27.3 pg (29.0-33.0) Mean Corpuscular Hemoglobin Concent 31.7 g/dl (32.0-37.0) Red Cell Distribution Width 17.6 % (11.5-14.5) Platelet Count 283 10^3/UL (140-415) Mean Platelet Volume 10.1 fl (7.4-10.4) Immature Granulocytes % 0.500 % (0.001-0.429) Neutrophils % 85.6 % (39.0-77.0) Lymphocytes % 4.2 % (15.0-51.0) Monocytes % 7.0 % (0.0-11.0) Eosinophils % 2.4 % (0.0-7.0) Basophils % 0.3 % (0.0-2.0) Nucleated Red Blood Cells % 0.0 /100WBC (0.0-0.0) Immature Granulocytes # 0.060 10^3/ul (0.0-0.031) Neutrophils # 11.4 10^3/ul (1.6-7.5) Lymphocytes # 0.6 10^3/ul (0.8-2.9) Monocytes # 0.9 10^3/ul (0.3-0.9) Eosinophils # 0.3 10^3/ul (0.0-0.5) Basophils # 0.0 10^3/ul (0.0-0.1) Nucleated Red Blood Cells # 0.0 10^3/ul (0.0-0.0) Sodium Level 134 mmol/L (135-144) Potassium Level 4.3 mmol/L (3.5-5.1) Chloride Level 95 mmol/L (97-110) Carbon Dioxide Level 31 mmol/L (21-31) Anion Gap 8 (5-13) Blood Urea Nitrogen 37 mg/dl (7-20) Creatinine 4.93 mg/dl (0.61-1.24) Est Glomerular Filtrat Rate mL/min 12 mL/min (>60) Glucose Level 74 mg/dl (70-220) Calcium Level 7.7 mg/dl (8.4-10.2) ANNALISA RIZZO MD Aug 19, 2018 15:55
[2018-08-20] MEDS ORDERED: HEPARIN 1000 UNITS/ML 10 ML INJ ONE (23:07)
[2018-08-20] MEDS ORDERED: FUROSEMIDE 10 ML ONE (23:07)
[2018-08-20] MEDS ORDERED: MANNITOL 20% 500 ML ONE (23:07)
== END 2018-08-19 15:45 | disposition home or self-care (01) | DRG 291 ==
LOC: E/R 11:24 → ICU 13:17 → 6WM 08-15 18:30
PROVIDERS: ADMIT Hospitalist; ATTEND Internal Medicine
PROC: 5A1D70Z Performance of Urinary Filtration, Intermittent, Less than 6 Hours Per Day (ICD-10-PCS; principal; 2018-08-13)
PROC: 5A1D70Z Performance of Urinary Filtration, Intermittent, Less than 6 Hours Per Day (ICD-10-PCS; 2018-08-18)
DX: I13.0 Hypertensive heart and chronic kidney disease with heart failure and stage 1 through stage 4 chronic kidney disease, or unspecified chronic kidney disease (principal); N18.6 End stage renal disease; E87.2 Acidosis; N39.0 Urinary tract infection, site not specified; A15.9 Respiratory tuberculosis unspecified; E87.5 Hyperkalemia; I50.9 Heart failure, unspecified; I25.10 Atherosclerotic heart disease of native coronary artery without angina pectoris; D47.3 Essential (hemorrhagic) thrombocythemia; D63.1 Anemia in chronic kidney disease; K74.60 Unspecified cirrhosis of liver; K21.9 Gastro-esophageal reflux disease without esophagitis; B96.20 Unspecified Escherichia coli [E. coli] as the cause of diseases classified elsewhere; Z16.12 Extended spectrum beta lactamase (ESBL) resistance; Z99.2 Dependence on renal dialysis; Z88.0 Allergy status to penicillin
CPT/HCPCS: 36415; 71045; 80048; 80053; 80061; 81001; 82962; 83036; 83605; 84439; 84443; 84484; 85025; 85610; 85730; 86704; 86709; 86803; 87081; 87086; 87116; 87340; 90935; 93005; 94664; 97110; 97116; 97162; 97530; C9113; J0360; J0610; J0692; J1580; J1644; J1956; J2270; J2405